=== PATIENT | female | born 1955 | race Caucasian/White ===

== ENCOUNTER 2021-09-04 06:48 | Outpatient (REF) | payer MEDICARE, BC, SELFPAY ==
[2021-09-04 11:29] LABS: MANUAL DIFF FLAG NO
[2021-09-04 11:41] LABS: Basophils Absolute Auto 0.1 X10*3/uL (0.0-0.2); Basophils Percent Auto 1.3 % (0-2); Eosinophils Absolute Auto 0.3 X10*3/uL (0.0-0.4); Eosinophils Percent Auto 4.7 % (0-4); Hematocrit 43.8 % (37.0-47.0); Imm Gran Abs Auto 0.03 X10*3/uL (0.00-0.03); Imm Gran Pct Auto 0.5 % (0.0-0.4); Lymphocytes Absolute Auto 1.9 X10*3/uL (1.2-4.9); Lymphocytes Percent Auto 32.4 % (20-40); Mean Corpuscular Hemoglobin 30.5 pg (27.0-33.0); Mean Corpuscular Volume 95.4 fL (80.0-98.0); Mean Platelet Volume 8.7 fL (9.4-12.3); Monocytes Absolute Auto 0.6 X10*3/uL (0.1-1.2); Monocytes Percent Auto 9.6 % (2-11); Neutrophils Absolute Auto 3.1 x10*3/uL (2.0-8.3); Neutrophils Percent Auto 51.5 % (45-73); Platelet Count 322 X10*3/uL (160-400); Red Blood Count 4.59 X10*6/uL (4.20-5.50); Red Cell Distribution Width 12.3 % (11.0-16.0)
[2021-09-04 12:18] LABS: TSH reflex Free T4 0.67 uIU/mL (0.32-4.0); Vitamin D 25-OH Total 25.9 ng/mL (>30)
[2021-09-04 12:33] LABS: Alanine Aminotransferase 16 U/L (0-31); Albumin Level 4.1 g/dL (3.5-5.0); Alkaline Phosphatase 90 U/L (39-117); Anion Gap 12 (12-20); Aspartate Amino Transferase 16 U/L (5-31); Bilirubin Total 0.3 mg/dL (0.0-1.0); Blood Urea Nitrogen 17 mg/dL (9-16); Calcium 8.6 mg/dL (8.4-10.2); Carbon Dioxide 28 mmol/L (22-29); Chloride 106 mmol/L (96-108); Cholesterol 243 mg/dL; Estimated Glomerular Filt Rate > 60; Glucose Fasting 90 mg/dL (60-99); HDL Cholesterol 51 mg/dL; LDL Cholesterol Calculated 159 mg/dl; Potassium 4.3 mmol/L (3.3-5.1); Sodium 142 mmol/L (135-145); Total Protein 6.9 g/dL (6.5-8.0); Triglycerides 166 mg/dL
[2021-09-04 12:35] LABS: Folate 7.3 ng/mL (> or = 4.0); Vitamin B12 348 pg/mL (200-900)
== END 2021-09-04 06:49 | disposition home or self-care (01) ==
LOC: HO.HMGCLDS 06:48
PROVIDERS: Visit Provider Nurse Practitioner Family
DX: E06.3 Autoimmune thyroiditis (principal); Z13.1 Encounter for screening for diabetes mellitus; Z76.89 Persons encountering health services in other specified circumstances; Z13.220 Encounter for screening for lipoid disorders
CPT/HCPCS: 36415; 80053; 80061; 82306; 82607; 82746; 84443; 85025

== ENCOUNTER 2021-09-18 12:53 | Outpatient (REF) | payer MEDICARE, BC, SELFPAY ==
--- NOTE | ~2021-09-18 | MM_ITS ---
EXAMINATION: BONE DENSITOMETRY CLINICAL INDICATION: Asymptomatic menopausal state. COMPARISON: This is the patient's baseline examination. TECHNIQUE: Using a [employer]ctin DXA System (software version: 13.1) manufactured by [id number], dual-energy x-ray absorptiometry was performed of the lumbar spine and left hip. The images are of good technical quality. Summary results are attached. FINDINGS: AP SPINE L1-L4 (excluding L3): The data of L1-L4 has been changed to exclude the L3 vertebral body, because degenerative sclerosis at this level may cause overestimation of lumbar spine density. BMD 1.107 g/cm2, Z-score 0.0, T-score -0.5, normal. LEFT FEMUR, NECK: BMD 0.889 g/cm2, Z-score -0.3, T-score -1.1, osteopenia. LEFT FEMUR, TOTAL: BMD 0.912 g/cm2, Z-score -0.3, T-score -0.8, normal. IDENTIFIED RISK FACTORS: Osteoporosis, history of fracture (adult), menopause. HISTORY OF FRACTURE: Humerus. Other. MEDICATIONS: Calcium supplements or multivitamin, vitamin D. MM/XR DEXA axial skeleton IMPRESSION: 1. DIAGNOSIS: Osteopenia based on the lowest T-score value of -1.1 in the femoral neck applying World Health Organization criteria. 2. 10-YEAR FRACTURE RISK PREDICTION, FRAX: Major osteoporotic fracture (clinical spine, forearm, hip or shoulder) 13.0%. Hip fracture 1.0%. 3. Treatment Recommendations: NOF guidelines recommend consideration for treatment in postmenopausal women and men age 50 and older presenting with the following: -A hip or vertebral (clinical or morphometric) fracture. -T-score less than or equal to -2.5 at the femoral neck or spine after appropriate evaluation to exclude secondary causes. -Low bone mass at the hip or spine and a 10-year fracture probability by FRAX of greater than or equal to 3% for hip fracture or greater than or equal to 20% for major osteoporotic fracture based on the [place] adapted WHO algorithm. 4. Other Recommendations: All treatment decisions require clinical judgment and consideration of individual patient factors, including patient preferences, comorbidities, previous drug use, risk factors not captured in the FRAX model (e.g. frailty, falls, vitamin D deficiency, increased bone turnover, interval significant decline in bone density) and possible under or overestimation of fracture risk by FRAX. Additional medical evaluation for secondary cause of low bone mineral density may be appropriate. FUTURE SCAN RECOMMENDATION: People with diagnosed cases of osteoporosis or at high risk for fracture should have regular bone mineral density tests. For patients eligible for Medicare, routine testing is allowed once every 2 years. The testing frequency can be increased to one year for patients who have rapidly progressing disease, those who are receiving or discontinuing medical therapy to restore bone mass, or have additional risk factors.
--- NOTE | ~2021-09-18 | MM_ITS ---
EXAMINATION: MM SCREENING DIGITAL BREAST TOMOSYNTHESIS, BILATERAL CLINICAL INFORMATION: Screening. Asymptomatic. The lifetime risk of breast cancer based on the Tyrer-Cuzick Model is 13.3%. COMPARISON: Mammography: None TECHNIQUE: Digital breast tomosynthesis is performed in both the craniocaudal and mediolateral oblique views along with computer-aided detection (CAD). Synthesized 2D images are generated from the tomosynthesis. FINDINGS: There are scattered areas of fibroglandular density (ACR BI-RADS breast composition Category b). There are no significant masses, abnormal calcifications, or other abnormalities. MM/MM tomosynthesis screening BI IMPRESSION: There are no significant changes from prior study. ASSESSMENT: BI-RADS 1: Negative RECOMMENDATION: Routine annual mammography screening. This patient's information was entered into a reminder system with a target due date for their next mammogram.
== END 2021-09-18 12:54 | disposition home or self-care (01) ==
LOC: HO.MAMMO 12:53
PROVIDERS: Visit Provider Nurse Practitioner Family
DX: Z12.31 Encounter for screening mammogram for malignant neoplasm of breast (principal); Z13.820 Encounter for screening for osteoporosis; Z78.0 Asymptomatic menopausal state
CPT/HCPCS: 77063; 77067; 77080

== ENCOUNTER 2021-10-17 23:16 | Emergency (ER) | payer MEDICARE, BC, SELFPAY ==
--- NOTE | ~2021-10-17 | XR_ITS ---
EXAMINATION: RIGHT HAND. CLINICAL INFORMATION: Pain and swelling. Trauma. COMPARISON: None TECHNIQUE: 3 views of the right hand. FINDINGS: There are oblique displaced non intra-articular fractures of the distal shaft of both the fourth and fifth metacarpal. No dislocation. Degenerative joint narrowing between navicular multangular bones of the wrist. Mild degenerative change of the radial ulnar joint. Degenerative joint narrowing marginal bone spurs of the DIP joint of the fifth digit. XR/XR hand wrist RT IMPRESSION: Oblique fracture of the fourth and fifth metacarpal.
--- NOTE | ~2021-10-17 | XR_ITS ---
EXAMINATION: XR HIP, RIGHT CLINICAL INFORMATION: Fall. Pain. COMPARISON: None TECHNIQUE: Frontal view of pelvis. Two views of the right hip. FINDINGS: Status post right hip replacement. Orthopedic components in position. Mildly displaced fractures of the right superior and inferior pubic ramus. Sacroiliac joints and symphysis pubis intact. No fracture of the left hip. There is degenerative joint disease of left hip with joint narrowing marginal bone spurs. XR/XR hip RT w PEL1V IMPRESSION: 1. Status post right hip replacement. 2. Fracture of the right superior and inferior pubic ramus
[2021-10-17 23:25] VITALS: BP 148/83; PULSE 83; RESP 16; TEMP 36.8; O2SAT 98; BMI 28.7
--- NOTE | 2021-10-18 00:21 | ED_ITS ---
HPI - Fall General Chief Complaint: Fall Stated Complaint: fall Time Seen by Provider: 10/18/21 00:06 Source: patient Mode of arrival: ambulatory Limitations: no limitations History of Present Illness HPI Narrative: Patient comes to the emergency room complaining of hip pain and right hand pain after a fall. Patient states that she fell going up the stairs. Patient denies hitting her head, no neck injury, denies taking any blood thinners. Related Data Previous Rx's Medication Instructions Recorded cholecalciferol (vitamin D3) 25 25 mcg PO DAILY #90 tabs 09/06/21 mcg (1,000 unit) tablet lorazepam 0.5 mg tablet 0.5 mg PO DAILY PRN agitation #30 09/13/21 tabs calcium carbonate 500 mg calcium 500 mg PO DAILY 90 days #90 tabs 09/19/21 (1,250 mg) tablet (Oyster Shell Calcium) paroxetine HCl 40 mg tablet 40 mg PO DAILY #90 tabs 10/09/21 levothyroxine 175 mcg capsule 175 mcg PO DAILY #30 caps 10/15/21 oxycodone 5 mg tablet 5 mg PO BID PRN pain #7 tabs 10/18/21 Allergies Allergy/AdvReac Type Severity Reaction Status Date / Time No Known Allergies Allergy Verified 10/17/21 23:28 Review of Systems Review of Systems: Constitutional : No Weight loss, No Fever, No Chills, No Night Sweats, No Fatigue, No Malaise ENT/Mouth : No Hearing loss, No Ear Pain, No Nasal Congestion, No Sinus Pain, No Hoarseness, No sore throat, No Rhinorrhea, No Swallowing Difficulty Eyes: No Eye Pain, No Swelling, No Redness, No Foreign Body, No Discharge, No Vision Changes Cardiovascular : No Chest Pain, No SOB, No Dyspnea on Exertion, No Orthopnea, No Edema, No Palpitations Respiratory : No Cough, No Sputum, No Wheezing, No Smoke Exposure, No Dyspnea Gastrointestinal : No Nausea, No Vomiting, No Diarrhea, No Constipation, No abdominal Pain, No Hematochezia, No Melena Genitourinary : no irregular bleeding, No Dysuria, No Urinary Frequency, No Hematuria, No Urinary Incontinence, No Urgency, No Flank Pain, No Urinary Flow Changes, No Hesitancy Musculoskeletal : Complaining of right-sided hip pain and complaining of right hand pain and swelling Skin : No Skin Lesions, No rash Neuro : No Weakness, No Numbness, No Paresthesias, No Loss of Consciousness, No Dizziness, No Headache Psych : No Anxiety/Panic, No Depression, No SI/HI/AH/VH, No Social Issues, Heme/Lymph: No Bruising, No Bleeding,No Lymphadenopathy Endocrine : No Polyuria, No Polydipsia, No Temperature Intolerance [facility] Past Medical History Medical History (Updated 10/18/21 @ 01:27 by Gerri Grijalva MD) Anxiety 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 Hyperlipidemia Surgical History (Updated 09/06/21 @ 14:02 by ASHLIE Hodges) History of colonoscopy History of right hip replacement History of surgery on arm Total knee replacement status Family History Family History Mother Bone cancer Brother Leukemia Sister Aortic aneurysm Father Kidney disease Social History Social History Housing: House Alcohol intake: current Alcohol intake frequency: a few times a month Alcohol type: beer Patient Tobacco Use Status: Former Tobacco user Tobacco use type: Cigarette Cigarettes Per Day: 5 Years Smoked: 25 e-Cigarette/Vaping Use: Never Used Second Hand Smoke Exposure: Yes Use of substances other than those prescribed or required for medical reasons: No Advance Directives: No service: No Current occupational status: employed (Part-time Job) and retired Cognitive needs: No Hearing needs: No Vision needs: Yes Physical Exam Vital Signs: Vital Signs: Last Vital Signs Temp 98.2 F 10/17/21 23:25 Pulse 83 10/17/21 23:25 Resp 16 10/17/21 23:25 BP 148/83 H 10/17/21 23:25 Pulse Ox 98 10/17/21 23:25 O2 Del Method 10/17/21 23:25 BMI result Body Mass Index 28.7 Const: Other: Appearance: Alert. Oriented X3. No acute distress. Eyes: Pupils equal, round and reactive to light. ENT: Pharynx normal. Neck: Normal inspection. Neck supple. No lymph nodes noted. No crepitus CVS: Normal heart rate and rhythm. Pulses normal. Normal S1 and S2 Respiratory: No respiratory distress. Breath sounds normal. No Wheezing. No rales Abdomen: Soft and nontender. No rigidity. No distention. Skin: Skin warm and dry. Normal skin color. Normal skin turgor. Extremities: No lower extremity edema. Pain to hip flexion and extension. Obvious deformity to the right hand over the 4th and 5th metacarpals, swelling and ecchymosis Neuro: Oriented X 3. No motor deficit. No sensory deficit. Moving all extremities. No slurred speech. CN 2 through 12 grossly intact Psych: calm, cooperative, normal affect Course Course Course Narrative: I discussed both x-rays with Dr. Martínez, recs: splvikas tyler texted at 00:23 to discuss the case. Recommend bracing. I reach out to ask if the patient needs surgical intervention. At this time, 1:22, no response. Patient instructed to follow-up with Dr. Martínez in the morning. Patient was able to walk, patient hand was splinted. I offered to the patient case management and physical therapy evaluation in the morning. Patient declined MDM - Fall Imaging Data Hip x-ray: Radiologist's impression: INDINGS: Status post right hip replacement. Orthopedic components in position. Mildly displaced fractures of the right superior and inferior pubic ramus. Sacroiliac joints and symphysis pubis intact. No fracture of the left hip. There is degenerative joint disease of left hip with joint narrowing marginal bone spurs.? XR/XR hip RT w PEL1V IMPRESSION: ? 1. Status post right hip replacement. 2. Fracture of the right superior and inferior pubic ramus Hand x-ray: Radiologist's impression: FINDINGS: There are oblique displaced non intra-articular fractures of the distal shaft of both the fourth and fifth metacarpal. No dislocation. Degenerative joint narrowing between navicular multangular bones of the wrist. Mild degenerative change of the radial ulnar joint. Degenerative joint narrowing marginal bone spurs of the DIP joint of the fifth digit. XR/XR hand wrist RT IMPRESSION: Oblique fracture of the fourth and fifth metacarpal.? Discharge Plan Discharge Clinical Impression: Closed fracture of inferior pubic ramus, Fracture of superior pubic ramus, Fx metacarpal Patient Disposition: Home, Self-Care Instructions: Hand Fracture (ED), Pelvic Fracture (ED) Additional Instructions: Please follow-up with your primary care physician tomorrow. If you have any worsening or new symptoms, please return to the emergency room or call 911 Prescriptions: New oxycodone 5 mg tablet 5 mg PO BID PRN (Reason: pain) Qty: 7 0RF Rx Instructions: Partial Fill upon patient request. No Action lorazepam 0.5 mg tablet 0.5 mg PO DAILY PRN (Reason: agitation) Qty: 30 0RF calcium carbonate [Oyster Shell Calcium] 500 mg calcium (1,250 mg) tablet 500 mg PO DAILY 90 Days Qty: 90 2RF paroxetine HCl 40 mg tablet 40 mg PO DAILY Qty: 90 0RF levothyroxine 175 mcg capsule 175 mcg PO DAILY Qty: 30 2RF cholecalciferol (vitamin D3) 25 mcg (1,000 unit) tablet 25 mcg PO DAILY Qty: 90 0RF Referrals: Randolph Martínez MD [Physician] - 10/18/21 9:00 am
[2021-10-18] MEDS: oxyCODONE HCl Immed Release 5 MG TABLET PO (00:29)
== END 2021-10-18 01:54 | disposition home or self-care (01) ==
PROVIDERS: Emergency Provider Emergency Medicine; PCP Nurse Practitioner Family
DX: S32.511A Fracture of superior rim of right pubis, initial encounter for closed fracture (principal); S62.324A Displaced fracture of shaft of fourth metacarpal bone, right hand, initial encounter for closed fracture; S62.326A Displaced fracture of shaft of fifth metacarpal bone, right hand, initial encounter for closed fracture; W17.89XA Other fall from one level to another, initial encounter; Z96.641 Presence of right artificial hip joint; Y93.89 Activity, other specified; Y92.009 Unspecified place in unspecified non-institutional (private) residence as the place of occurrence of the external cause; Y99.9 Unspecified external cause status
CPT/HCPCS: 73110; 73130; 73502; 99283; 99284

== ENCOUNTER 2021-11-01 07:18 | Outpatient (REF) | payer BC, SELFPAY ==
--- NOTE | ~2021-11-01 | XR_ITS ---
EXAMINATION: XR HIP, RIGHT CLINICAL INFORMATION: Right hip pain. COMPARISON: Pelvic and hip radiographs dated 10/17/2021. TECHNIQUE: AP view of the pelvis as well as AP and frog-leg lateral views of the right hip. FINDINGS: Total right hip arthroplasty. No hardware fracture. No perihardware lucency to suggest loosening or infection. No dislocation. Left hip joint space narrowing with marginal osteophytes, unchanged. Redemonstration of right superior and inferior pubic rami fractures which are again noted to be slightly comminuted and displaced, similar when compared to the prior radiographs. No significant new bone/callus formation. No concerning lytic or blastic osseous lesion. Phleboliths within the pelvis. XR/XR hip RT w PEL1V IMPRESSION: 1. Redemonstration of mildly displaced and comminuted fractures through the right superior and inferior pubic rami, unchanged. No significant new bone/callus formation. 2. Right hip arthroplasty without evidence of hardware complication. 3. Left hip osteoarthritis, unchanged.
--- NOTE | ~2021-11-01 | XR_ITS ---
EXAMINATION: XR HAND, RIGHT CLINICAL INFORMATION: Right hand pain. COMPARISON: Right hand and wrist radiographs dated 10/17/2021. TECHNIQUE: PA, lateral, and oblique views of the right hand. FINDINGS: Redemonstration of oblique, displaced fractures through the 4th and 5th metacarpals. There is anterior and radial displacement of the distal fracture fragments. Minimal new bone/callus formation when compared to the prior radiographs. No new fracture or dislocation. Scattered degenerative changes redemonstrated throughout the metacarpophalangeal and interphalangeal joints, unchanged. XR/XR hand RT min 3V IMPRESSION: Fourth and 5th metacarpal fractures in similar anatomic alignment with minimal new bone/callus formation.
== END 2021-11-01 07:19 | disposition home or self-care (01) ==
LOC: HO.HOSX 07:18
PROVIDERS: Visit Provider Physician Assistant
DX: S32.511A Fracture of superior rim of right pubis, initial encounter for closed fracture (principal); S32.591A Other specified fracture of right pubis, initial encounter for closed fracture; S62.300A Unspecified fracture of second metacarpal bone, right hand, initial encounter for closed fracture
CPT/HCPCS: 29085; 73130; 73502

== ENCOUNTER 2021-11-29 08:03 | Outpatient (REF) | payer BC, SELFPAY ==
--- NOTE | ~2021-11-29 | XR_ITS ---
EXAMINATION: XR HAND, RIGHT CLINICAL INFORMATION: Pain; follow-up fourth and fifth metacarpal fractures. COMPARISON: Prior radiographs, most recently 11/01/2021. TECHNIQUE: PA, lateral, and oblique views of the right hand. FINDINGS: There is mild bony demineralization. There is stable alignment of oblique, moderately displaced right fourth and fifth distal metacarpal shaft fractures. No new callus formation is seen. The proximal and distal carpal rows are intact. There are stable degenerative changes of the fingers and of the carpal bones. Particular note is made of marked osteoarthritic change of the fifth distal interphalangeal joint. No significant soft tissue swelling, gas or foreign body is seen. XR/XR hand RT min 3V IMPRESSION: There is stable alignment of oblique, moderately displaced fractures of the distal right fourth and fifth intercarpal shafts. No new callus formation is noted.
--- NOTE | ~2021-11-29 | XR_ITS ---
EXAMINATION: XR HIP, RIGHT WITH FRONTAL PELVIS CLINICAL INFORMATION: Pain. COMPARISON: Radiographs dated 11/19/2021. TECHNIQUE: AP and frog-leg lateral views of the right hip are submitted, together with a frontal view of the pelvis. FINDINGS: Prosthetic components of the right total hip arthroplasty are appropriately aligned without periprosthetic fracture or abnormal lucency. No component migration. There is mild narrowing of the left acetabular joint space medially. The soft tissue tissues are normal. XR/XR hip RT w PEL1V IMPRESSION: 1. Appropriate alignment of the right total hip arthroplasty without surrounding abnormalities. 2. There is mild osteoarthritic change of the left hip.
== END 2021-11-29 08:04 | disposition home or self-care (01) ==
LOC: HO.HOSX 08:03
PROVIDERS: Visit Provider Physician Assistant
DX: S62.309A Unspecified fracture of unspecified metacarpal bone, initial encounter for closed fracture (principal); S32.511A Fracture of superior rim of right pubis, initial encounter for closed fracture; S32.591A Other specified fracture of right pubis, initial encounter for closed fracture
CPT/HCPCS: 29085; 73130; 73502; 99212

== ENCOUNTER 2021-12-26 09:24 | Outpatient (REF) | payer BC, SELFPAY ==
[2021-12-26 11:57] LABS: Alanine Aminotransferase 15 U/L (0-31); Albumin Level 4.2 g/dL (3.5-5.0); Alkaline Phosphatase 124 U/L (39-117); Anion Gap 16 (12-20); Aspartate Amino Transferase 17 U/L (5-31); Bilirubin Total 0.6 mg/dL (0.0-1.0); Blood Urea Nitrogen 17 mg/dL (9-16); Calcium 9.3 mg/dL (8.4-10.2); Carbon Dioxide 25 mmol/L (22-29); Chloride 105 mmol/L (96-108); Cholesterol 235 mg/dL; Estimated Glomerular Filt Rate > 60; Glucose Fasting 102 mg/dL (60-99); HDL Cholesterol 48 mg/dL; LDL Cholesterol Calculated 160 mg/dl; Potassium 4.3 mmol/L (3.3-5.1); Sodium 142 mmol/L (135-145); Total Protein 7.2 g/dL (6.5-8.0); Triglycerides 137 mg/dL
[2021-12-26 11:58] LABS: TSH reflex Free T4 2.24 uIU/mL (0.32-4.0); Vitamin D 25-OH Total 32.7 ng/mL (>30)
== END 2021-12-26 09:25 | disposition home or self-care (01) ==
LOC: HO.HMGCLDS 09:24
PROVIDERS: PCP Nurse Practitioner Family; Visit Provider Nurse Practitioner Family
DX: E06.3 Autoimmune thyroiditis (principal); R79.89 Other specified abnormal findings of blood chemistry; E78.5 Hyperlipidemia, unspecified
CPT/HCPCS: 36415; 80053; 80061; 82306; 84443

== ENCOUNTER 2021-12-30 08:20 | Outpatient (REF) | payer BC, SELFPAY ==
--- NOTE | ~2021-12-30 | XR_ITS ---
EXAMINATION: XR PELVIS CLINICAL INFORMATION: Pain. Fracture. COMPARISON: Previous x-ray most recent October 2021 TECHNIQUE: AP view of the pelvis. FINDINGS: There are healing nondisplaced fractures of the right superior and inferior pubic rami. No other fracture. Right hip replacement in satisfactory position. Arthritis at the left hip joint. Normal soft tissues. XR/XR pelvis 1-2V IMPRESSION: Healing right superior and inferior pubic rami fractures.
--- NOTE | ~2021-12-30 | XR_ITS ---
EXAMINATION: XR HAND, RIGHT CLINICAL INFORMATION: Fracture COMPARISON: Previous x-ray most recent October 2021 TECHNIQUE: PA, lateral, and oblique views of the right hand. FINDINGS: There are oblique fractures of the distal shafts of the fourth and fifth metacarpal bones. These appear similar to October 2021 exam. Alignment is unchanged. Fracture lines are still seen. There is minimal interval increase in bony callus formation. There is arthritis at the IP joints, first [facility] joint and trapezoid trapezium scaphoid joints. The bones are osteopenic. Soft tissues are unremarkable. XR/XR hand RT min 3V IMPRESSION: No appreciable change in fractures of the distal shafts of the fourth and fifth metacarpal bones.
== END 2021-12-30 08:21 | disposition home or self-care (01) ==
LOC: HO.HOSX 08:20
PROVIDERS: Visit Provider Physician Assistant
DX: M79.641 Pain in right hand (principal); M16.12 Unilateral primary osteoarthritis, left hip; M25.551 Pain in right hip; Z96.641 Presence of right artificial hip joint
CPT/HCPCS: 72170; 73130; 99212

== ENCOUNTER → 2021-12-30 12:43 | Outpatient (BNVA) | payer MEDICARE, BC, SELFPAY | PROVIDERS: PCP Nurse Practitioner Family; Visit Provider Physician Assistant | DX: S32.599D Other specified fracture of unspecified pubis, subsequent encounter for fracture with routine healing (principal); S62.309D Unspecified fracture of unspecified metacarpal bone, subsequent encounter for fracture with routine healing | CPT/HCPCS: 99212 ==

== ENCOUNTER 2022-01-14 14:07 | Outpatient (REF) | payer MEDICARE, BC, SELFPAY ==
[2022-01-14 16:38] LABS: Estimated Average Glucose 94 mg/dL; Hemoglobin A1c % 4.9 %
== END 2022-01-14 14:08 | disposition home or self-care (01) ==
LOC: HO.HMGCLDS 14:07
PROVIDERS: PCP Nurse Practitioner Family; Visit Provider Nurse Practitioner Family
DX: R73.01 Impaired fasting glucose (principal)
CPT/HCPCS: 36415; 83036

== ENCOUNTER 2022-02-12 12:38 | Outpatient (REF) | payer BC, SELFPAY | END 2022-02-12 12:39 | disposition home or self-care (01) | LOC: HO.HOSX 12:38 | PROVIDERS: Visit Provider Physician Assistant | DX: S62.324D Displaced fracture of shaft of fourth metacarpal bone, right hand, subsequent encounter for fracture with routine healing (principal); S62.326D Displaced fracture of shaft of fifth metacarpal bone, right hand, subsequent encounter for fracture with routine healing | CPT/HCPCS: 99212 ==

== ENCOUNTER 2022-05-13 11:57 | Outpatient (REF) | payer BC, SELFPAY ==
[2022-05-13 14:25] LABS: Alanine Aminotransferase 17 U/L (0-31); Albumin Level 4.1 g/dL (3.5-5.0); Alkaline Phosphatase 92 U/L (39-117); Anion Gap 13 (12-20); Aspartate Amino Transferase 21 U/L (5-31); Bilirubin Total 0.5 mg/dL (0.0-1.0); Blood Urea Nitrogen 13 mg/dL (9-16); Calcium 8.6 mg/dL (8.4-10.2); Carbon Dioxide 29 mmol/L (22-29); Chloride 105 mmol/L (96-108); Cholesterol 215 mg/dL; Estimated Glomerular Filt Rate > 60; Glucose Random 90 mg/dL (60-115); HDL Cholesterol 51 mg/dL; LDL Cholesterol Calculated 121 mg/dl; Potassium 4.8 mmol/L (3.3-5.1); Sodium 142 mmol/L (135-145); Total Protein 6.9 g/dL (6.5-8.0); Triglycerides 215 mg/dL
[2022-05-13 14:41] LABS: TSH reflex Free T4 0.83 uIU/mL (0.32-4.0)
== END 2022-05-13 11:58 | disposition home or self-care (01) ==
LOC: HO.HMGCLDS 11:57
PROVIDERS: PCP Nurse Practitioner Family; Visit Provider Nurse Practitioner Family
DX: E06.3 Autoimmune thyroiditis (principal); E78.5 Hyperlipidemia, unspecified
CPT/HCPCS: 36415; 80053; 80061; 84443

== ENCOUNTER 2022-07-11 11:55 | Outpatient (REF) | payer BC, SELFPAY ==
--- NOTE | ~2022-07-11 | XR_ITS ---
EXAMINATION: XR HIP, LEFT CLINICAL INFORMATION: Pain COMPARISON: None available. TECHNIQUE: Two views of the left hip and one view of the pelvis. FINDINGS: There is moderate left hip arthritis with joint space narrowing and osteophyte formation. No acute fracture or dislocation. Right hip replacement in satisfactory position. Question old healed fracture of the right superior pubic ramus. Bones of the pelvis are otherwise normal. Degenerative changes of the spine. Normal soft tissues. XR/XR hip LT w PEL1V IMPRESSION: Moderate left hip arthritis.
== END 2022-07-11 11:56 | disposition home or self-care (01) ==
LOC: HO.HOSX 11:55
PROVIDERS: Visit Provider Physician Assistant
DX: M16.12 Unilateral primary osteoarthritis, left hip (principal)
CPT/HCPCS: 73502

== ENCOUNTER 2022-07-16 08:37 | Outpatient (REF) | payer BC, SELFPAY ==
--- NOTE | ~2022-07-16 | XR_ITS ---
EXAMINATION: Bilateral ankle. CLINICAL INDICATIONS: Pain. COMPARISON: None. TECHNIQUE: 3 views each ankle. FINDINGS: Left ankle: There is a small calcaneal, retrocalcaneal and dorsal tarsometatarsal enthesophytes. No visible acute fracture, dislocation or subluxation seen. The ankle mortise and subtalar joints are normal. Right ankle: There is a moderate size calcaneal heel and retrocalcaneal enthesophytes. Ankle mortise and subtalar joints are normal. There is moderate tarsometatarsal dorsal enthesophytes. The soft tissues are normal. XR/XR ankle RT min 3V IMPRESSION: 1. Bilateral calcaneal heel and retrocalcaneal enthesophytes. No visible acute fracture, dislocation or subluxation seen. 2. There is moderate bilateral tarsometatarsal dorsal enthesophytes. 3. No visible acute fracture, dislocation or bony erosive changes.
--- NOTE | ~2022-07-16 | XR_ITS ---
EXAMINATION: Bilateral ankle. CLINICAL INDICATIONS: Pain. COMPARISON: None. TECHNIQUE: 3 views each ankle. FINDINGS: Left ankle: There is a small calcaneal, retrocalcaneal and dorsal tarsometatarsal enthesophytes. No visible acute fracture, dislocation or subluxation seen. The ankle mortise and subtalar joints are normal. Right ankle: There is a moderate size calcaneal heel and retrocalcaneal enthesophytes. Ankle mortise and subtalar joints are normal. There is moderate tarsometatarsal dorsal enthesophytes. The soft tissues are normal. XR/XR ankle LT min 3V IMPRESSION: 1. Bilateral calcaneal heel and retrocalcaneal enthesophytes. No visible acute fracture, dislocation or subluxation seen. 2. There is moderate bilateral tarsometatarsal dorsal enthesophytes. 3. No visible acute fracture, dislocation or bony erosive changes.
== END 2022-07-16 08:38 | disposition home or self-care (01) ==
LOC: HO.HOSX 08:37
PROVIDERS: Visit Provider Physician Assistant
DX: M19.071 Primary osteoarthritis, right ankle and foot (principal); M19.072 Primary osteoarthritis, left ankle and foot
CPT/HCPCS: 73610

== ENCOUNTER 2022-09-04 09:11 | Outpatient (REF) | payer BC, SELFPAY | END 2022-09-04 09:12 | disposition home or self-care (01) | LOC: HO.HMGCLDS 09:11 | PROVIDERS: PCP Nurse Practitioner Family; Visit Provider Nurse Practitioner Family | DX: E06.3 Autoimmune thyroiditis (principal); E78.5 Hyperlipidemia, unspecified | CPT/HCPCS: 36415; 80053; 80061; 84443 ==

== ENCOUNTER 2022-09-09 11:37 | Outpatient (AMB) | payer BC, SELFPAY ==
[2022-09-09 11:41] VITALS: BP 130/68; PULSE 81; O2SAT 99; BMI 32.1
--- NOTE | 2022-09-09 11:41 | A.OFFPC_ITS ---
Vital Signs 09/09/22 11:41 Height 5 ft 10 in Weight 224 lb BMI 32.1 BP 130/68 Blood Pressure Location Lt brachial Position Sitting Pulse 81 Pulse Source Pulse Oximeter Temp Source Skin Pulse Oximetry (%) 99 Oxygen Delivery Method Room Air Intake Visit Reasons: annual exam Intake Note: Patient is here today for a physical. Seasoner Hand Required: No Allergies No Known Allergies Allergy (Verified 09/09/22 11:52) Medication List - Last Reconciled 09/09/22 by ASHLIE Hodges blood pressure monitor As directed calcium carbonate (Oyster Shell Calcium) 500 mg PO DAILY 90 days cholecalciferol (vitamin D3) 25 mcg PO DAILY levothyroxine 175 mcg PO DAILY lorazepam 0.5 mg PO DAILY PRN paroxetine HCl 40 mg PO DAILY pravastatin 10 mg PO BEDTIME Tobacco use date assessed: 09/09/22 Fall risk assessment: No Falls in past year Last assessed Fall Risk: 09/09/22 Dental Screening Dental Screen Date: 09/09/22 Did you have a dental visit in the last 12 months?: Yes Did you have a dental problem in the last 6 months where you did not have access to dental care?: No Was dental information given to patient?: Patient has dentist HPI annual exam HPI Details Patient is a 67-year-old female presents today for physical exam.? Medical history significant for elevated fasting glucose, Samuel's disease, anxiety, hyperlipidemia, osteopenia, panic attacks.? Patient is compliant with medications and denies side effects.? Recent blood work results were reviewed with the patient.? Patient denies shortness of breath or chest pain.? Encouraged low-cholesterol diet and weight loss.? Patient will call [facility]'s [facility] for mammogram. We also discussed patient's need for colon cancer screening. Bone density screen 08/2021 which showed osteopenia. Patient reports eye exam 06/2022. Patient quit smoking 2 years ago, will refer for low-dose chest CT scan. Up-to-date with immunizations. [facility] Medical History Anxiety Cigarette smoker 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 Hyperlipidemia Screening for breast cancer Screening for diabetes mellitus Screening for hyperlipidemia Surgical History History of colonoscopy History of right hip replacement History of surgery on arm Total knee replacement status Family History Mother Bone cancer Brother Leukemia Sister Aortic aneurysm Father Kidney disease Social History Housing: House Alcohol intake: current Alcohol intake frequency: a few times a month Alcohol type: beer Patient Tobacco Use Status: Former Tobacco user Tobacco use type: Cigarette Cigarettes Per Day: 5 Years Smoked: 25 e-Cigarette/Vaping Use: Never Used Second Hand Smoke Exposure: Yes service: No Current occupational status: employed (Part-time Job) and retired Cognitive needs: Yes (crutches) Hearing needs: No Vision needs: Yes Questionnaire PHQ-9 Over the last 2 weeks, how often have you been bothered by any of the following problems? 1. Little interest or pleasure in doing things: not at all 2. Feeling down, depressed, or hopeless: not at all 3. Trouble falling or staying asleep, or sleeping too much: not at all 4. Feeling tired or having little energy: not at all 5. Poor appetite or overeating: not at all 6. Feeling bad about yourself - or that you are a failure or have let yourself or your family down: not at all 7. Trouble concentrating on things, such as reading the newspaper or watching television: not at all 8. Moving or speaking so slowly that other people could have noticed. Or the opposite - being so fidgety or restless that you have been moving around a lot more than usual: not at all 9. Thoughts that you would be better off or of hurting yourself in some way: not at all Total score: 0 Depression Screening Interpretation: Negative 31958 - PHQ-9 Billing: Yes Source: Developed by Drs. Keith Brown, Mayte Jin, Bereket Carter and colleagues, with an educational nina from [employer]. Thrive Questionnaire Date Thrive assessed: 05/14/22 AUDIT C Alcohol Use Questionnaire (AUDIT-C) 1. How often do you have a drink containing alcohol?: 2-3 times a week 2. How many drinks containing alcohol do you have on a typical day when you are drinking?: 1 or 2 3. How often do you have six or more drinks on one occasion?: Never Total Score: 3 Score Reviewed/Action Taken: No TONIA-7 AMB Questionnaire TONIA-7 Date TONIA - 7 assessed: 09/09/22 Feeling nervous, anxious, or on edge: 1 = Several days Not being able to stop or control worryin = Several days Worrying too much about different things: 0 = Not at all Trouble relaxin = Not at all Being so restless that it is hard to sit still: 0 = Not at all Becoming easily annoyed or irritable: 0 = Not at all Feeling afraid as if something awful might happen: 0 = Not at all Total TONIA-7 score (0-4 normal; 5-9 mild; 10-14 moderate; 15-21 severe): 2 Source: Developed by Drs. Keith Brown, Mayte Jin, Bereket Carter and colleagues, with an educational nina from [employer]. TONIA-7 Assessment Billing TONIA-7 Assessment Tool: TONIA-7 Assessment 31708 Review of Systems Const Denies body aches, Denies chills, Denies fever(s) and Denies headache(s) Eyes Denies blurry vision and Denies change in vision ENT Denies dizziness, Denies otalgia, Denies headache(s), Denies nasal discharge, Denies sinus pain and Denies sore throat Card Denies chest pain, Denies edema, Denies lightheadedness and Denies dyspnea Resp Denies chest congestion, Denies cough and Denies dyspnea GI Denies abdominal pain, Denies constipation, Denies diarrhea, Denies nausea and Denies vomiting Denies hematuria, Denies dysuria and Denies flank pain Musc Denies myalgias and Reports arthralgias (Intermittent in ankles) Skin/Breast Denies lesions and Denies rash Neuro Denies dizziness and Denies headache(s) Physical exam (Primary Care) Vital Signs: Last Vital Signs Pulse 81 09/09/22 11:41 BP 130/68 09/09/22 11:41 Pulse Ox 99 09/09/22 11:41 Oxygen Delivery Method Room Air 09/09/22 11:41 BMI result Body Mass Index 32.1 Tobacco/Smoking Status: Tobacco use Status Tobacco use date assessed 09/09/22 09/09/22 11:42 Patient Tobacco Use Status Former Tobacco user 09/09/22 11:42 Tobacco use type Cigarette 09/09/22 11:42 e-Cigarette/Vaping Use Never Used 09/09/22 11:42 PHQ-9: PHQ-9 Score PHQ-9: Total score 0 09/09/22 11:53 Depression Screening Interpretation: Negative Thrive Assessment: Date of Thrive Assessment Date Thrive assessed 05/14/22 09/09/22 11:42 Const General: cooperative and no acute distress Orientation/consciousness: patient oriented x3 HENMT Head: Yes normocephalic and Yes atraumatic Ears: TM's normal bilaterally Face and sinus: Yes sinuses nontender Mouth: oropharynx normal and moist mucous membranes Throat: Yes posterior oropharynx normal Eyes General: appearance normal, both eyes and all related structures Pupils: Equal, round and reactive pupils present EOM: EOMs intact bilaterally Neck Neck: Yes normal visual inspection, Yes full ROM and Yes no lymphadenopathy Thyroid: Thyroid normal Resp Effort & Inspection: normal respiratory effort and able to speak in complete sentences Auscultation: clear to auscultation bilaterally, no crackles, no rales, no rhonchi and no wheezes Cardio Rate: regular rate Rhythm: regular rhythm Heart sounds: S1 normal heart sound present, S2 normal heart sound present and no murmurs GI Palpation (GI): Soft to palpation, not firm, nontender, no guarding, not rigid and no hepatosplenomegaly Auscultation: normal bowel sounds General: No CVA tenderness Back/Spine/Pelvis Back: No CVA tenderness Skin General skin exam: no rashes or lesions noted Neuro General: patient oriented x3 Cranial nerves: Yes Equal, round and reactive pupils present Gait exam (Neuro): Normal gait present Extrem General: Yes full ROM and No edema Assessment and Plan Assessment & Plan (1) Hyperlipidemia: Code(s): E78.5 - Hyperlipidemia, unspecified Plan: LDL 140 08/2022, goal LDL less than 130 Continue pravastatin 10 mg at bedtime Low-cholesterol diet (2) Anxiety: Code(s): F41.9 - Anxiety disorder, unspecified Plan: Paroxetine 40 mg daily (3) Panic attack: Code(s): F41.0 - Panic disorder [episodic paroxysmal anxiety] Plan: Lorazepam 0.5 mg daily as needed - educated about dependency and memory loss (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 Plan: Levothyroxine 175 mcg daily (5) Elevated fasting glucose: Code(s): R73.01 - Impaired fasting glucose Plan: A1c 4.9 12/2021 Continue to monitor (6) Obesity (BMI 30-39.9): Code(s): E66.9 - Obesity, unspecified Plan: Healthy food choices and exercise as tolerated (7) Osteopenia: Comment: DXA 08/2021 (osteopenia) Code(s): M85.80 - Other specified disorders of bone density and structure, unspecified site Plan: Continue vitamin D3 and calcium carbonate (8) History of nicotine dependence: Comment: stopped smoking 2020 Code(s): Z87.891 - Personal history of nicotine dependence Plan: Will refer for chest CT scan (9) Adult general medical exam: Code(s): Z00.00 - Encounter for general adult medical examination without abnormal findings Plan: Repeat in 1 year (10) Screening for colon cancer: Code(s): Z12.11 - Encounter for screening for malignant neoplasm of colon Plan: Referral for colonoscopy Plan Follow-up in 4 months or sooner as needed Orders: Orders Vitamin B12 and Folate 4 Months Z00.00 - Encounter for general adult medical examination without abnormal findings Comprehensive [place]. Panel Fast 4 Months R73.01 - Impaired fasting glucose Hemoglobin A1c 4 Months R73.01 - Impaired fasting glucose Lipid Panel 4 Months E78.5 - Hyperlipidemia, unspecified TSH reflex Free T4 4 Months E06.3 - Autoimmune thyroiditis Vitamin D 25-OH Total 4 Months M85.80 - Other specified disorders of bone density and structure, unspecified site Complete Blood Count Auto Diff 4 Months Z00.00 - Encounter for general adult medical examination without abnormal findings Referrals Open Access Screening Colonoscopy Referral Z12.11 - Encounter for screening for malignant neoplasm of colon, Z12.12 - Encounter for screening for malignant neoplasm of rectum Thoracic Surgery Referral Z87.891 - Personal history of nicotine dependence Coding Level of Care Code Est Pt Prev Care >65y(89560) Diagnoses Hyperlipidemia E78.5 Anxiety F41.9 Panic attack F41.0 Samuel's disease E06.3 Elevated fasting glucose R73.01 Obesity (BMI 30-39.9) E66.9 Osteopenia M85.80 History of nicotine dependence Z87.891 Adult general medical exam Z00.00 Screening for colon cancer Z12.11 Additional Codes TONIA-7 Assessment Billing - TONIA-7 Assessment Tool: TONIA-7 Assessment 40228 ([id number])
== END 2022-09-09 12:16 | disposition home or self-care (01) ==
PROVIDERS: Visit Provider Nurse Practitioner Family
DX: Z00.00 Encounter for general adult medical examination without abnormal findings (principal); F41.9 Anxiety disorder, unspecified; E06.3 Autoimmune thyroiditis; Z68.32 Body mass index [BMI] 32.0-32.9, adult; E78.5 Hyperlipidemia, unspecified; F41.0 Panic disorder [episodic paroxysmal anxiety]; R73.01 Impaired fasting glucose; E66.9 Obesity, unspecified; M85.80 Other specified disorders of bone density and structure, unspecified site; Z87.891 Personal history of nicotine dependence; Z12.11 Encounter for screening for malignant neoplasm of colon
CPT/HCPCS: 99397

== ENCOUNTER 2023-01-13 08:09 | Outpatient (REF) | payer BC, SELFPAY ==
[2023-01-13 11:46] LABS: MANUAL DIFF FLAG NO
[2023-01-13 12:01] LABS: Estimated Average Glucose 100 mg/dL; Hemoglobin A1c % 5.1 % (<6.0)
[2023-01-13 12:16] LABS: Basophils Absolute Auto 0.1 X10*3/uL (0.0-0.2); Basophils Percent Auto 0.9 % (0-2); Eosinophils Absolute Auto 0.2 X10*3/uL (0.0-0.4); Hematocrit 43.1 % (37.0-47.0); Hemoglobin 13.9 g/dl (12.0-16.0); Imm Gran Abs Auto 0.03 X10*3/uL (0.00-0.03); Imm Gran Pct Auto 0.6 % (0.0-0.4); Lymphocytes Absolute Auto 1.4 X10*3/uL (1.2-4.9); Lymphocytes Percent Auto 25.2 % (20-40); Mean Corpuscular HGB Conc 32.3 g/dl (31.0-35.0); Mean Corpuscular Volume 93.1 fL (80.0-98.0); Mean Platelet Volume 8.7 fL (9.4-12.3); Monocytes Absolute Auto 0.5 X10*3/uL (0.1-1.2); Monocytes Percent Auto 9.7 % (2-11); Neutrophils Absolute Auto 3.2 x10*3/uL (2.0-8.3); Neutrophils Percent Auto 59.6 % (45-73); Platelet Count 295 X10*3/uL (160-400); Red Blood Count 4.63 X10*6/uL (4.20-5.50); Red Cell Distribution Width 12.5 % (11.0-16.0); White Blood Count 5.4 X10*3/uL (4.8-10.8)
[2023-01-13 12:17] LABS: Alanine Aminotransferase 11 U/L (0-31); Albumin Level 4.1 g/dL (3.5-5.0); Alkaline Phosphatase 88 U/L (39-117); Anion Gap 11 (12-20); Aspartate Amino Transferase 16 U/L (5-31); Bilirubin Total 0.3 mg/dL (0.0-1.0); Blood Urea Nitrogen 20 mg/dL (9-16); Calcium 9.3 mg/dL (8.4-10.2); Carbon Dioxide 30 mmol/L (22-29); Chloride 107 mmol/L (96-108); Cholesterol 195 mg/dL (<200); Estimated Glomerular Filt Rate > 60; Glucose Fasting 101 mg/dL (60-99); HDL Cholesterol 49 mg/dL (>40); LDL Cholesterol Calculated 118 mg/dL (<100); Potassium 4.9 mmol/L (3.3-5.1); Sodium 143 mmol/L (135-145); Total Protein 7.2 g/dL (6.5-8.0); Triglycerides 142 mg/dL (<150)
[2023-01-13 12:23] LABS: TSH reflex Free T4 0.53 uIU/mL (0.32-4.0); Vitamin D 25-OH Total 44.5 ng/mL (>30)
[2023-01-13 12:41] LABS: Folate 5.4 ng/mL (> or = 4.0); Vitamin B12 428 pg/mL (200-900)
== END 2023-01-13 08:10 | disposition home or self-care (01) ==
LOC: HO.HMGCLDS 08:09
PROVIDERS: PCP Nurse Practitioner Family; Visit Provider Nurse Practitioner Family
DX: Z00.00 Encounter for general adult medical examination without abnormal findings (principal); M85.80 Other specified disorders of bone density and structure, unspecified site; E06.3 Autoimmune thyroiditis; E78.5 Hyperlipidemia, unspecified; R73.01 Impaired fasting glucose
CPT/HCPCS: 36415; 80053; 80061; 82306; 82607; 82746; 83036; 84443; 85025

== ENCOUNTER 2023-01-14 11:44 | Outpatient (AMB) | payer BC, SELFPAY ==
[2023-01-14 11:46] VITALS: BP 122/88; PULSE 80; O2SAT 98; BMI 31.4
--- NOTE | 2023-01-14 11:46 | A.OFFPC_ITS ---
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 Allergies No Known Allergies Allergy (Verified 01/14/23 11:54) Medication List - Last Reconciled 01/14/23 by ASHLIE Hodges bisacodyl 20 mg (4 x 5 mg) PO ONCE 1 day blood pressure monitor As directed calcium carbonate (Oyster Shell Calcium) 500 mg PO DAILY 90 days cholecalciferol (vitamin D3) 25 mcg PO DAILY levothyroxine 175 mcg PO DAILY lorazepam 0.5 mg PO DAILY PRN paroxetine HCl 40 mg PO DAILY polyethylene glycol 3350 (Miralax) 238 grams PO ONCE pravastatin 10 mg PO BEDTIME Tobacco use date assessed: 01/14/23 Fall risk assessment: No Falls in past year Last assessed Fall Risk: 01/14/23 Dental Screening Dental Screen Date: 01/14/23 Did you have a dental visit in the last 12 months?: Yes Did you have a dental problem in the last 6 months where you did not have access to dental care?: No Was dental information given to patient?: Patient has dentist HPI 4 month f/u HPI Details Patient is a 67-year-old female presents today for a routine follow- up.? Medical history significant for elevated fasting glucose, Samuel's disease, anxiety, hyperlipidemia, osteopenia, panic attacks.? Patient is compliant with medications and denies side effects.? Recent blood work results were reviewed with the patient.? Patient denies shortness of breath or chest pain. Patient reports that she was recently sick with a cold, reports some postnasal drip-she will try [id number] Flonase nasal spray. [facility] Medical History Metacarpal bone fracture Fracture of superior pubic ramus Closed fracture of inferior pubic ramus Anxiety Samuel's disease Hyperlipidemia Osteopenia Personal history of nicotine dependence Surgical History History of colonoscopy History of total right knee replacement (~2017) History of total left knee replacement (~2017) History of surgery on arm (~2019) History of right hip replacement (~2019) Family History (Updated 01/14/23 @ 12:01 by ASHLIE Hodges) Mother Bone cancer Brother Leukemia Afib Sister Aortic aneurysm Father Kidney disease Social History Housing: House Alcohol intake: current Alcohol intake frequency: a few times a month Alcohol type: beer Patient Tobacco Use Status: Former Tobacco user Tobacco use type: Cigarette Cigarettes Per Day: 5 Years Smoked: 25 e-Cigarette/Vaping Use: Never Used Second Hand Smoke Exposure: Yes service: No Current occupational status: employed (Part-time Job) and retired Cognitive needs: Yes (crutches) Hearing needs: No Vision needs: Yes Questionnaire Thrive Questionnaire Date Thrive assessed: 05/14/22 AUDIT C Alcohol Use Questionnaire (AUDIT-C) 1. How often do you have a drink containing alcohol?: 2-3 times a week 2. How many drinks containing alcohol do you have on a typical day when you are drinking?: 1 or 2 3. How often do you have six or more drinks on one occasion?: Never Total Score: 3 Score Reviewed/Action Taken: No TONIA-7 AMB Questionnaire TONIA-7 Date TONIA - 7 assessed: 09/09/22 Source: Developed by Drs. Keith Brown, Mayte Jin, Bereket Carter and colleagues, with an educational nina from [employer]. Review of Systems Const Denies body aches, Denies chills, Denies fever(s) and Denies headache(s) Eyes Denies blurry vision and Denies change in vision ENT Denies dizziness, Denies otalgia, Denies headache(s), Denies nasal discharge, Reports post nasal drip, Denies sinus pain and Denies sore throat Card Denies chest pain, Denies edema, Denies lightheadedness and Denies dyspnea Resp Denies chest congestion, Denies cough and Denies dyspnea GI Denies abdominal pain Denies dysuria Musc Denies myalgias Skin/Breast Denies rash Neuro Denies dizziness and Denies headache(s) Physical exam (Primary Care) Vital Signs: Last Vital Signs Pulse 80 01/14/23 11:46 BP 122/88 01/14/23 11:46 Pulse Ox 98 01/14/23 11:46 Oxygen Delivery Method Room Air 01/14/23 11:46 BMI result Body Mass Index 31.4 Tobacco/Smoking Status: Tobacco use Status Tobacco use date assessed 01/14/23 01/14/23 11:51 Patient Tobacco Use Status Former Tobacco user 01/14/23 11:51 Tobacco use type Cigarette 01/14/23 11:51 e-Cigarette/Vaping Use Never Used 01/14/23 11:51 Thrive Assessment: Date of Thrive Assessment Date Thrive assessed 05/14/22 01/14/23 11:51 Const General: cooperative and no acute distress Orientation/consciousness: patient oriented x3 HENMT Head: Yes normocephalic and Yes atraumatic Face and sinus: Yes sinuses nontender Mouth: oropharynx normal and moist mucous membranes Throat: Yes posterior oropharynx normal Eyes General: appearance normal, both eyes and all related structures Neck Neck: Yes normal visual inspection, Yes full ROM and Yes no lymphadenopathy Thyroid: Thyroid normal Resp Effort & Inspection: normal respiratory effort and able to speak in complete sentences Auscultation: clear to auscultation bilaterally, no crackles, no rales, no rhonchi and no wheezes Cardio Rate: regular rate Rhythm: regular rhythm Heart sounds: S1 normal heart sound present and S2 normal heart sound present GI Auscultation: normal bowel sounds Skin General skin exam: no rashes or lesions noted Neuro General: patient oriented x3 Gait exam (Neuro): Normal gait present Extrem General: Yes full ROM and No edema Assessment and Plan Assessment & Plan (1) Hyperlipidemia: Code(s): E78.5 - Hyperlipidemia, unspecified Plan: LDL 118 12/2022, goal LDL less than 130 Continue pravastatin 10 mg at bedtime Low-cholesterol diet (2) Anxiety: Code(s): F41.9 - Anxiety disorder, unspecified Plan: Paroxetine 40 mg daily (3) Panic attack: Code(s): F41.0 - Panic disorder [episodic paroxysmal anxiety] Plan: Lorazepam 0.5 mg daily as needed - educated about dependency and memory loss (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 Panel Fast 4 Months E78.5 - Hyperlipidemia, unspecified TSH reflex Free T4 4 Months E06.3 - Autoimmune thyroiditis Medications: Refilled lorazepam 0.5 mg PO DAILY PRN 30 tabs 0RF agitation Coding Level of Care Code Est Pt Level 4 (17073) Diagnoses Hyperlipidemia E78.5 Anxiety F41.9 Panic attack F41.0 Samuel's disease E06.3 Elevated fasting glucose R73.01 Obesity (BMI 30-39.9) E66.9
== END 2023-01-14 12:10 | disposition home or self-care (01) ==
PROVIDERS: PCP Nurse Practitioner Family; Visit Provider Nurse Practitioner Family
DX: E78.5 Hyperlipidemia, unspecified (principal); F41.9 Anxiety disorder, unspecified; F41.0 Panic disorder [episodic paroxysmal anxiety]; E06.3 Autoimmune thyroiditis; R73.01 Impaired fasting glucose; E66.9 Obesity, unspecified; Z68.31 Body mass index [BMI] 31.0-31.9, adult
CPT/HCPCS: 99214

== ENCOUNTER 2023-01-30 09:21 | Outpatient (AMB) | payer BC, SELFPAY ==
--- NOTE | 2023-01-30 09:29 | MHC.OFFVIS ---
Intake Intake Visit Reasons: LDCT SD Allergies No Known Allergies Allergy (Verified 01/14/23 11:54) HPI LDCT SD HPI Details Initial visit for this 67 smoker with a 22 PYH quit 2021. Patient has been smoking since age 21 for 45 years at approximately 1/2 ppd. . Denies marijuana use. Notes prior second hand smoke exposure. Denies exposure to chemicals or substances like asbestos, working in many different . Denies known family history of lung cancer. Denies personal history of cancer. Denies chest CT in last year. . Denies recent travel outside the [place]. Denies recent respiratory illness or recent hospitalization for respiratory issues. . Denies fever, chills, new/worsening cough, hemoptysis, hoarseness or dysphagia. Denies significant chest pain, significant dyspnea or unintentional weight loss. Patient Lung Cancer Screening Questionnaire reviewed with patient.. . Shared Decision Making Completed. Patient meets criteria. Discussed in detail with patient, the risk vs benefit of LDCT screening. Patient consents to proceed with scan. [facility] Medical History Metacarpal bone fracture Fracture of superior pubic ramus Closed fracture of inferior pubic ramus Anxiety Samuel's disease Hyperlipidemia Osteopenia Personal history of nicotine dependence Surgical History History of colonoscopy History of total right knee replacement (~2017) History of total left knee replacement (~2017) History of surgery on arm (~2019) History of right hip replacement (~2019) Family History (Updated 01/14/23 @ 12:01 by ASHLIE Hodges) Mother Bone cancer Brother Leukemia Afib Sister Aortic aneurysm Father Kidney disease Social History (Updated 01/30/23 @ 09:53 by Gerri Carey NP) Housing: House Alcohol intake: current Alcohol intake frequency: a few times a month Alcohol type: beer Patient Tobacco Use Status: Former Tobacco user Tobacco use type: Cigarette Cigarettes Per Day: 10 Years Smoked: 25 e-Cigarette/Vaping Use: Never Used Second Hand Smoke Exposure: Yes service: No Current occupational status: employed (Part-time Job) and retired Cognitive needs: Yes (crutches) Hearing needs: No Vision needs: Yes Assessment & Plan Assessment & Plan (1) Personal history of nicotine dependence: Comment: (former smoker - quit 2021) Code(s): Z87.891 - Personal history of nicotine dependence Plan SDM visit completed in office. - Patient meets criteria for LDCT for lung cancer screening purposes and is asymptomatic. - Will arrange for a LDCT scan of the chest for screening purposes at [facility]. - Discussed follow up plan. Will send a letter discussing results and if needed set up phone call and office visit based on CT findings. - Risks, benefits, and alternatives were discussed in detail and patient agrees to proceed. - Risks discussed include but are not limited to: radiation exposure and possibility of additional intervention for benign disease. - Benefits are obviously detection of lung cancer at an early stage. - Discussed importance of screening program and compliance with yearly LDCT scan as scheduled. - Patient informed they will be contacted at later date to schedule upcoming LDCT scan. - All questions answered and patient is in agreement of plan. - A copy of office note and LDCT will be sent to patient's PCP. Incidental findings on LDCT are PCP's responsibility. Coding Level of Care Code Lung Cancer Screening G0296 Diagnoses Personal history of nicotine dependence Z87.891
== END 2023-01-30 09:39 | disposition home or self-care (01) ==
PROVIDERS: PCP Nurse Practitioner Family; Visit Provider Nurse Practitioner Family
DX: Z87.891 Personal history of nicotine dependence (principal)
CPT/HCPCS: G0296

== ENCOUNTER 2023-01-30 09:38 | Outpatient (REF) | payer BC, SELFPAY ==
--- NOTE | ~2023-01-30 | CT_ITS ---
EXAMINATION: CT CHEST LOW-DOSE SCREENING WITHOUT CONTRAST HISTORY: Asymptomatic patient meeting criteria for lung screening. Smoking PATIENT PACK-YEAR HISTORY: 41 Current Smoker: No If former smoker, years since quittin COMPARISON: None TECHNIQUE: Multidetector volumetric non-contrast CT imaging of the chest was obtained on a [id number] 128 slice scanner using low dose screening CT technique. Axial thin section 0.625 mm reformations in soft tissue and lung windows were obtained. Sagittal and coronal reformations were obtained. Axial MIP images were also created and reviewed. RECONSTRUCTED WIDTH: 1.25 mm x 1.25 mm TOTAL EXAM DLP: 66 mGy-cm CTDIvol: 1.65 mGy FINDINGS: LUNGS: Lungs are well-expanded without nodules or evidence of emphysema or COPD. There are no lung nodules or consolidation. MEDIASTINUM/LYMPHATIC STRUCTURES: There is mild mediastinal lymphadenopathy with pretracheal lymph node measured 0.9 cm. There is no obvious hilar lymphadenopathy. THYROID GLAND: Unremarkable to the extent seen. CARDIOVASCULAR STRUCTURES: Thoracic aorta is ectatic measured 3.9 cm. Coronary artery calcifications present. There is no pericardial effusion or cardiomegaly. PLEURA: No pleural effusion. No pleural 6 VISUALIZED ABDOMEN: Included portions of the solid organs in the upper abdomen unremarkable on noncontrast imaging. MUSCULO-SKELETAL: There are mild multilevel degenerative changes in thoracic spine. SPINAL COMPRESSION: Absent. CT/CT lung screening IMPRESSION: No findings suspicious for malignancy/pulmonary nodule(s)/other. LUNG-RADS CATEGORY - 1 ASSESSMENT: Negative. PHYSICAL FINDINGS (S CATEGORY): Finding: No incidental findings. Significance category: Normal or normal variant. RECOMMENDATION: Low dose lung CT. overall in 1 year. Visual estimate of coronary calcified plaque burden: None. However, this exam cannot replace a dedicated cardiac CT calcium score for accurate assessment.
== END 2023-01-30 09:39 | disposition home or self-care (01) ==
LOC: HO.CT 09:38
PROVIDERS: PCP Nurse Practitioner Family; Visit Provider Physician Assistant Medical
DX: Z12.2 Encounter for screening for malignant neoplasm of respiratory organs (principal); Z87.891 Personal history of nicotine dependence
CPT/HCPCS: 71271; G0296

== ENCOUNTER 2023-05-04 10:03 | Day surgery (SDC) | payer BC, SELFPAY ==
--- NOTE | 2023-05-01 13:17 | P.CONAN_ITS ---
Documented by User: Alexa Mckenzie NP 05/01/23 13:18 HPI - Anesthesia Eval Consult details Narrative: 67yo F for Colonoscopy PMFSH Active Problems Active Problems: All Active Problems (Updated 01/30/23 @ 09:53 by Gerri Carey NP) Anxiety (Acute) Panic attack (Acute) Samuel's disease (Acute) Hyperlipidemia (Acute) Osteopenia (Acute) Obesity (BMI 30-39.9) (Acute) Elevated fasting glucose (Acute) Elevated blood pressure reading (Acute) Personal history of nicotine dependence (Acute) Post-menopausal (Acute) Osteoarthritis of feet, bilateral (Acute) Osteoarthritis of left hip (Acute) Shotty lymph nodes (Acute) Low vitamin D level (Acute) Past Medical History Medical History Metacarpal bone fracture Fracture of superior pubic ramus Closed fracture of inferior pubic ramus Anxiety Samuel's disease Hyperlipidemia Osteopenia Personal history of nicotine dependence Family History Family History (Updated 01/14/23 @ 12:01 by ASHLIE Hodges) Mother Bone cancer Brother Leukemia Afib Sister Aortic aneurysm Father Kidney disease Surgical History Surgical History History of colonoscopy History of total right knee replacement (~2017) History of total left knee replacement (~2017) History of surgery on arm (~2019) History of right hip replacement (~2019) Social History Social History (Updated 01/30/23 @ 09:53 by Gerri Carey NP) Housing: House Alcohol intake: current Alcohol intake frequency: a few times a month Alcohol type: beer Patient Tobacco Use Status: Former Tobacco user Tobacco use type: Cigarette Cigarettes Per Day: 10 Years Smoked: 25 e-Cigarette/Vaping Use: Never Used Second Hand Smoke Exposure: Yes Advance Directives: No Advance Directives Information Provided: Yes service: No Current occupational status: employed (Part-time Job) and retired Cognitive needs: Yes (crutches) Hearing needs: No Vision needs: Yes Meds Allergies Allergy/AdvReac Type Severity Reaction Status Date / Time No Known Allergies Allergy Verified 01/14/23 11:54 Exam Pertinent Lab Results Pertinent Lab Results: Laboratory Tests 01/13/23 08:14 WBC 5.4 Hgb 13.9 Hct 43.1 Plt Count 295 Sodium 143 Potassium 4.9 Chloride 107 Carbon Dioxide 30 H BUN 20 H Creatinine 0.84 Assessment and Plan Assessment Anesthesia Assessment: Chart Reviewed Documented by User: Serenity Mcdonald MD 05/04/23 11:24 [facility] Past Medical History Medical History Metacarpal bone fracture Fracture of superior pubic ramus Closed fracture of inferior pubic ramus Anxiety Samuel's disease Hyperlipidemia Osteopenia Personal history of nicotine dependence Family History Family History (Updated 01/14/23 @ 12:01 by ASHLIE Hodges) Mother Bone cancer Brother Leukemia Afib Sister Aortic aneurysm Father Kidney disease Family history of problems with anesthesia: No Surgical History Surgical History History of colonoscopy History of total right knee replacement (~2017) History of total left knee replacement (~2017) History of surgery on arm (~2019) History of right hip replacement (~2019) History of Problems with Anesthesia: No Social History Social History (Updated 01/30/23 @ 09:53 by Gerri Carey NP) Housing: House Alcohol intake: current Alcohol intake frequency: a few times a month Alcohol type: beer Patient Tobacco Use Status: Former Tobacco user Tobacco use type: Cigarette Cigarettes Per Day: 10 Years Smoked: 25 e-Cigarette/Vaping Use: Never Used Second Hand Smoke Exposure: Yes Advance Directives: No Advance Directives Information Provided: Yes service: No Current occupational status: employed (Part-time Job) and retired Cognitive needs: Yes (crutches) Hearing needs: No Vision needs: Yes Meds Allergies Allergy/AdvReac Type Severity Reaction Status Date / Time No Known Allergies Allergy Verified 01/14/23 11:54 Exam Airway Mallampati Class: II (missing couple laterally) TM Dist: >3cm Neck ROM: Full Heart: rrr Lungs: cta Assessment and Plan Assessment Anesthesia Assessment: Anesthesia Plan Discussed Final Anesthetic Review Family History of Problems with Anesthesia: No History of Problems with Anesthesia: No NPO: Yes ASA Class: II Final Preanesthetic Review: No Changes in Pt Med Stat, Meds/Allgs Chart Reviewed and Consent Obtained/Reviewed Patient Risk: Low Procedure Risk: Low Anesthetic Plan Anesthetic Plan: MAC: Disposition: Standard PACU
[2023-05-04 11:28] VITALS: BP 145/73; PULSE 61; RESP 15; TEMP 36.9; O2SAT 98
--- NOTE | 2023-05-04 11:28 | MHC.SHP ---
Pre-Procedural Eval Section A - 24 Hr Update-Section A only Date of Service: 05/04/23 The patient is an INPATIENT: No The patient has been examined within 24 hours of the surgical procedure. The History & Physical has been completed within 30 days and I have reviewed it.: No Section B - Complete if H&P > 30 days Chief Complaint: Colon cancer screening Details of Present Illness: Patient denies abdominal pain, change in bowel habits, black stools or rectal bleeding. Relevant Family History (Specify if Yes): No Relevant Social History: Tobacco Use (Former smoker) Present Medications: see Short Stay Collaborative assessment Medical History: Significant History (elevated fasting glucose, Samuel's disease, anxiety, hyperlipidemia, osteopenia, panic attacks. ) History of Previous Operations: Relevant previous surgery/procedure and date(s) (History of colonoscopy History of total right knee replacement (~2016) History of total left knee replacement (~2016) History of surgery on arm (~2018) History of right hip replacement (~2018)) Allergies: Allergies Allergy/AdvReac Type Severity Reaction Status Date / Time No Known Allergies Allergy Verified 05/04/23 11:27 Review of Systems Sugical H&P ROS: Negative: Constitution, Cardiovascular, Respiratory and Gastrointestinal Exam Surgical H&P Exam: Normal: Heart, Normal: Lungs, Normal: Extremities and Normal: Abdomen Plan Diagnosis/Plan: Unchanged I have reviewed the history and physical and performed a pertinent physical examination on my patient. No changes have occurred unless specified. Time Spent With Patient Time: Total time managing care of this patient today ____ minutes.
[2023-05-04 11:29] VITALS: BMI 31.0
--- NOTE | 2023-05-04 11:30 | P.OP_ITS ---
Operative Note Operative Note Date of Service: 05/04/23 Narrative: COLONOSCOPY TILL CECUM WITH SNARE POLYPECTOMY Pre-op diagnosis: Colon cancer screening. Post-op diagnosis:? Colon polyps, Diverticulosis, hemorrhoids Endoscopist:? Taryn Servin MD Anesthesia:?MAC Consent: Indications for the procedure and potential complications of bleeding, perforation, reaction to medications and missed diagnosis were discussed with the patient and informed consent was obtained. Instrument: Olympus CF H 190 L variable stiffness adult colonoscope Monitoring: Vital signs and clinical assessment, intermittent blood pressure monitoring, continuous EKG monitoring, Pulse oximetry and Carbon Dioxide monitoring were done throughout the procedure. Please see anesthesia flowsheet. Colon withdrawl time was 19 minutes. Procedure: The patient was placed in the left lateral decubitis position and pre-procedure medications were administered. After a digital rectal examination of the ano-rectum, the video colonoscope was inserted into the rectum and advanced through the colon to the cecum. The colonoscope was slowly withdrawn in a retrograde panoramic fashion and the colon mucosa was carefully examined including a retroflexed view of the rectum. Findings and interventions are described below. Procedure Difficulty: Narrow and tortuous sigmoid colon from 30 to 35 cms which was navigated with some difficulty Findings: Terminal Ileum: Not evaluated Cecum: Normal Ascending Colon: A 7-8 mm sessile polyp in the mid AC - removed with a cold snare Transverse Colon: Normal Descending Colon: Moderate diverticulosis Sigmoid Colon: Severe diverticulosis with luminal narrowing Rectum: A 7-8 mm diminutive appearing polyp - removed with a cold snare Ano-rectum: Moderate internal hemorrhoids Colon preparation: Good after some irrigation [place] Bowel Preparation Scale Right colon; 3 Transverse colon: 3 Left colon; 3 (0 = Unprepared colon segment with mucosa not seen due to solid stool that cannot be cleared. 1 = Portion of mucosa of the colon segment seen, but other areas of the colon segment not well seen due to staining, residual stool and/or opaque liquid. 2 = Minor amount of residual staining, small fragments of stool and/or opaque liquid, but mucosa of colon segment seen well. 3 = Entire mucosa of colon segment seen well with no residual staining, small fragments of stool or opaque liquid) Impression and Post Procedure Diagnosis: Colonoscopy Findings: Two small polyps removed. Moderate to severe diverticulosis seen in the left colon Moderate hemorrhoids on retroflexed exam. Plan: I will send a letter with pathology results Repeat Colonoscopy in 5 years if polyps are adenomatous and 10 years if polyps are hyperplastic. Above findings were reviewed with the patient and colon polyps and diverticulosis handouts were given in the discharge area.
[2023-05-04] MEDS: Lactated Ringers 1,000 ML 100 ML IVCONT (11:31)
[2023-05-04 12:13] VITALS: BP 124/74; PULSE 67; RESP 16; TEMP 36.2; O2SAT 97
[2023-05-04 12:28] VITALS: BP 130/66; PULSE 68; RESP 15; TEMP 36.2; O2SAT 98
== END 2023-05-04 12:52 | disposition home or self-care (01) ==
PROVIDERS: PCP Nurse Practitioner Family; Visit Provider Internal Medicine Gastroenterology
PROC: 0DJD8ZZ Inspection of Lower Intestinal Tract, Via Natural or Artificial Opening Endoscopic (ICD-10-PCS; CPT 45378; principal; 2023-05-04 11:40)
DX: Z12.11 Encounter for screening for malignant neoplasm of colon (principal); D12.4 Benign neoplasm of descending colon; K62.1 Rectal polyp; K57.30 Diverticulosis of large intestine without perforation or abscess without bleeding; K64.8 Other hemorrhoids; R73.01 Impaired fasting glucose; E06.3 Autoimmune thyroiditis; F41.9 Anxiety disorder, unspecified; F41.0 Panic disorder [episodic paroxysmal anxiety]; E78.5 Hyperlipidemia, unspecified; M85.80 Other specified disorders of bone density and structure, unspecified site; E66.9 Obesity, unspecified; Z68.32 Body mass index [BMI] 32.0-32.9, adult; Z79.899 Other long term (current) drug therapy; Z87.891 Personal history of nicotine dependence
CPT/HCPCS: 45385; 88305; J2704

== ENCOUNTER → 2023-05-04 10:03 | Outpatient (BNV) | payer BC, SELFPAY | PROVIDERS: PCP Nurse Practitioner Family; Visit Provider Internal Medicine Gastroenterology | DX: Z12.11 Encounter for screening for malignant neoplasm of colon (principal); K63.5 Polyp of colon; K57.90 Diverticulosis of intestine, part unspecified, without perforation or abscess without bleeding; K64.8 Other hemorrhoids | CPT/HCPCS: 45385 ==

== ENCOUNTER 2023-05-08 10:15 | Outpatient (AMB) | payer BC, SELFPAY ==
--- NOTE | 2023-05-08 10:29 | A.OFFPC_ITS ---
Vital Signs 05/08/23 10:33 05/08/23 11:09 Height 5 ft 10 in Weight 199 lb BMI 28.6 BP 160/69 H 114/60 Blood Pressure Location Lt brachial Lt brachial Position Sitting Sitting Respiration 12 Pulse 80 Pulse Source Pulse Oximeter Temp 99.0 F Temp Source Temporal Artery Scan Pulse Oximetry (%) 100 Oxygen Delivery Method Room Air Intake Visit Reasons: transfer of care from [facility] Note: Patient is here for transfer of care from [facility]. Patient reports she has no concerns at this time. Arc Cutter Plasma Arc Required: No Accompanied by: self Allergies No Known Allergies Allergy (Verified 05/08/23 10:58) Medication List - Last Reconciled 05/08/23 by Sobeida Gonzalez, SEISMOGRAPH OBSERVER- blood pressure monitor As directed calcium carbonate (Oyster Shell Calcium) 500 mg PO DAILY 90 days cholecalciferol (vitamin D3) 25 mcg PO DAILY levothyroxine 175 mcg PO DAILY lorazepam 0.5 mg PO DAILY PRN paroxetine HCl 40 mg PO DAILY pravastatin 10 mg PO BEDTIME Tobacco use date assessed: 05/08/23 Fall risk assessment: No Falls in past year Last assessed Fall Risk: 05/08/23 Dental Screening Dental Screen Date: 05/08/23 Did you have a dental visit in the last 12 months?: Yes Did you have a dental problem in the last 6 months where you did not have access to dental care?: No Was dental information given to patient?: Patient has dentist HPI HPI Comments History of Present Illness Details 67-year-old female with TONIA with panic a ttacks, Samuel's disease, hyperlipidemia, osteopenia, obesity, impaired fasting glucose, hypertension, former smoker quit in 2021 (20 pack year history), osteoarthritis of multiple joints, vitamin-D deficiency, 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, CAD, multilevel osteoarthritis of the spine, mild mediastinal lymphadenopathy with pretracheal lymph node measuring 0.9 cm, severe diverticulosis, ckd 3a Health maintenance Colonoscopy 05/04/2023 severe diverticulosis of the sigmoid colon luminal narrowing, moderate internal hemorrhoids, moderate diverticulosis of descending colon repeat in 5 years if polyps are adematous, repeat in 10 years if benign Mammogram 09/18/2021 within normal limits, Repeat ordered today 05/2023 DEXA 09/18/2021 positive for osteopenia femoral T-score -1.1, Repeat ordered today 05/2023 Lung cancer screening January 2023 Pap 2020, declined further screening at this time. Reports negative history. Vaccines: Reports UTD on COVID, Flu, RSV [facility] Here today to establish care and for a complete physical exam. 05/08/2023 labs show a normal electrolytes , BUN 15, creatinine 0.97, EGFR 57, normal fasting glucose, normal LFTs, total cholesterol 174, LDL 105, HDL 48, triglycerides 105, urine creatinine microalbumin within normal limits [facility] Medical History (Updated 05/11/23 @ 11:55 by Sobeida Gonzalez, [facility]-) Osteoarthritis of feet, bilateral Osteoarthritis of left hip Shotty lymph nodes Metacarpal bone fracture Fracture of superior pubic ramus Closed fracture of inferior pubic ramus Anxiety Samuel's disease Hyperlipidemia Osteopenia Personal history of nicotine dependence Surgical History History of colonoscopy History of total right knee replacement (~2017) History of total left knee replacement (~2017) History of surgery on arm (~2019) History of right hip replacement (~2019) Family History Mother Bone cancer Brother Leukemia Afib Sister Aortic aneurysm Father Kidney disease Social History (Updated 05/08/23 @ 10:44 by Monique Wick CMA) Household Members: Significant Other Housing: House Are you a primary pediatric acute care unit nurse to a significant other at home: No Do you presently have visiting nurse or other home services: No 75 years or older and lives alone: No Alcohol intake: current Alcohol intake frequency: holidays/special occasions only Alcohol type: beer Patient Tobacco Use Status: Former Tobacco user Quit Date: 3 mos ago Tobacco use type: Cigarette Cigarettes Per Day: 10 Years Smoked: 25 e-Cigarette/Vaping Use: Never Used Second Hand Smoke Exposure: Yes service: No Current occupational status: employed (Part-time Job) and retired 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 1. Little interest or pleasure in doing things: not at all 2. Feeling down, depressed, or hopeless: not at all 3. Trouble falling or staying asleep, or sleeping too much: not at all 4. Feeling tired or having little energy: not at all 5. Poor appetite or overeating: not at all 6. Feeling bad about yourself - or that you are a failure or have let yourself or your family down: not at all 7. Trouble concentrating on things, such as reading the newspaper or watching television: not at all 8. Moving or speaking so slowly that other people could have noticed. Or the opposite - being so fidgety or restless that you have been moving around a lot more than usual: not at all 9. Thoughts that you would be better off or of hurting yourself in some way: not at all Total score: 0 Depression Screening Interpretation: Negative Depression Screening Done: Yes 63865 - PHQ-9 Billing: Yes Source: Developed by Drs. Keith Brown, Mayte Jin, Bereket Carter and colleagues, with an educational nina from [employer]. Thrive Questionnaire Date Thrive assessed: 05/08/23 I am a: Patient What is your living situation today?: I have a steady place to live Within the past 12 months, did the food you bought not last and you didn't have the money to get more?: Never true Within the past 12 months, did you worry whether your food would run out before you got money to buy more?: Never true Do you have trouble paying for medicines?: No Do you have trouble getting transportation to medical appointments?: No Do you have trouble paying your heating and electricity bill?: No Do you have trouble taking care of your child, family member or friend?: No Do you have trouble with day-to-day activities such as bathing, preparing meals, shopping, managing finances, etc.?: No Are you currently unemployed and looking for a job?: No Are you interested in more education?: No Please select the resources that you would like help with: None Currently or been in a relationship where the following occur: no concerns reported THRIVE Score: 0 AUDIT C Alcohol Use Questionnaire (AUDIT-C) 1. How often do you have a drink containing alcohol?: Never 2. How many drinks containing alcohol do you have on a typical day when you are drinking?: 3 or 4 3. How often do you have six or more drinks on one occasion?: Never Total Score: 1 Score Reviewed/Action Taken: Yes TONIA-7 AMB Questionnaire TONIA-7 Date TONIA - 7 assessed: 05/08/23 Feeling nervous, anxious, or on edge: 1 = Several days Not being able to stop or control worryin = Not at all Worrying too much about different things: 1 = Several days Trouble relaxin = Not at all Being so restless that it is hard to sit still: 0 = Not at all Becoming easily annoyed or irritable: 0 = Not at all Feeling afraid as if something awful might happen: 0 = Not at all Total TONIA-7 score (0-4 normal; 5-9 mild; 10-14 moderate; 15-21 severe): 2 Source: Developed by Drs. Keith Brown, Mayte Jin, Bereket Carter and colleagues, with an educational nina from [employer]. TONIA-7 Assessment Billing TONIA-7 Assessment Tool: TONIA-7 Assessment 89257 Review of Systems Const Details: Constitutional: Denies fever. Skin: Denies rash. Eye: Denies eye pain. ENMT: Denies sore throat and nasal congestion. Respiratory: Denies shortness of breath and cough. Gastrointestinal: Denies nausea, vomiting or abdominal pain. Cardiovascular: Denies chest pain and syncope. Genitourinary: Denies dysuria. Musculoskeletal: Denies back pain and extremity pain. Neurologic: Denies headaches, confusion, and weakness. Psychiatric: Denies suicidal thoughts and substance abuse. Allergy/ Immunologic: Denies impaired immunity. Physical exam (Primary Care) Vital Signs: Last Vital Signs Temp 99.0 F 05/08/23 10:33 Pulse 80 05/08/23 10:33 Resp 12 05/08/23 10:33 BP 114/60 05/08/23 11:09 Pulse Ox 100 05/08/23 10:33 Oxygen Delivery Method Room Air 05/08/23 10:33 BMI result Body Mass Index 28.6 Tobacco/Smoking Status: Tobacco use Status Tobacco use date assessed 05/08/23 05/08/23 10:31 Patient Tobacco Use Status Former Tobacco user 05/08/23 10:44 Tobacco use type Cigarette 05/08/23 10:44 e-Cigarette/Vaping Use Never Used 05/08/23 10:44 PHQ-9: PHQ-9 Score PHQ-9: Total score 0 05/11/23 10:22 Depression Screening Interpretation: Negative Thrive Assessment: Date of Thrive Assessment Date Thrive assessed 05/08/23 05/08/23 10:33 Currently or been in a relationship where the following occur: no concerns reported Const Other: General: Well developed, well nourished, in no acute distress. Appears stated age. Head: Normocephalic, atraumatic. Eyes: Pupils are equal, round and reactive to light and accommodation. Conjunctivae are clear. Vision grossly normal. Ears: TMs clear AU, EACS WNL Nose: Patent, without discharge. Mouth: There are no ulcers or lesions noted. No inflammation, no post nasal drip, no plaques nor exudates. Neck: Supple, no adenopathy or thyromegaly. Lungs: Clear to auscultation bilaterally. No rales, rhonchi or wheeze noted. Good air flow in all jimenez. Heart: Regular rate and rhythm. No murmurs, click, rubs or gallops are noted. Abdomen: Bowel sounds present in all quadrants. The abdomen is soft, nontender, with no masses or organomegaly noted. No hernias are noted. Musculoskeletal: Joints are nontender, without swelling, redness, or effusions. Range of motion is observed to be normal. Pulses: Peripheral pulses are equal and palpable bilaterally. Extremities: No clubbing, cyanosis nor edema is noted. Neurologic: Gait and station normal. Cranial Nerves 2-12 intact. Motor strength grossly symmetrical and intact. No sensory loss. Balance normal. Skin: No rashes, ulcers, or lesions noted. Turgor is good. Skin color is good. Hair and nails are without abnormalities. Psych: Normal eye contact, affect and mood appropriate, and normal interactions. Patient is alert and appropriate to context. Assessment and Plan Assessment & Plan (1) Annual physical exam: Code(s): Z00.00 - Encounter for general adult medical examination without abnormal findings (2) Post-menopausal: Comment: (Bone Dexa Femoral T-score: -1.1 - 09/18/21) DEXA ordered today Code(s): Z78.0 - Asymptomatic menopausal state (3) Osteopenia: Comment: (Bone Dexa Femoral T-score: -1.1 - 09/18/21) DEXA ordered today Code(s): M85.80 - Other specified disorders of bone density and structure, unspecified site Qualifiers: Osteopenia location: femoral neck Laterality: left Qualified Code(s): M85.852 - Other specified disorders of bone density and structure, left thigh (4) Screening mammogram for breast cancer: Comment: Mammogram ordered Code(s): Z12.31 - Encounter for screening mammogram for malignant neoplasm of breast (5) Samuel's disease: Comment: Currently on levothyroxine 175 mcg daily. Thyroid labs checked today within normal limits. Continue current dose Code(s): E06.3 - Autoimmune thyroiditis (6) Hyperlipidemia: Comment: On pravastatin 10 mg daily. 05/23 total cholesterol 174, LDL 105, HDL 48, triglycerides 105. Continue Code(s): E78.5 - Hyperlipidemia, unspecified Qualifiers: Hyperlipidemia type: mixed hyperlipidemia Qualified Code(s): E78.2 - Mixed hyperlipidemia (7) Elevated fasting glucose: Comment: Normal fasting glucose on labs 05/2023 continue to monitor Code(s): R73.01 - Impaired fasting glucose (8) Low vitamin D level: Comment: Vitamin-D level ordered. Currently taking vitamin D3 25 mcg p.o. daily. Code(s): R79.89 - Other specified abnormal findings of blood chemistry (9) CKD (chronic kidney disease) stage 3, GFR 30-59 ml/min: Comment: 05/08/2023 labs show a normal electrolytes, BUN 15, creatinine 0.97, EGFR 57,urine creatinine microalbumin within normal limits Code(s): N18.30 - Chronic kidney disease, stage 3 unspecified Qualifiers: Chronic kidney disease stage 3 subtype: stage 3a (GFR 45-59) Qualified Code(s): N18.31 - Chronic kidney disease, stage 3a (10) Personal history of nicotine dependence: Comment: (former smoker - quit 2021) Code(s): Z87.891 - Personal history of nicotine dependence (11) Generalized anxiety disorder with panic attacks: Comment: Currently managed on lorazepam p.r.n. paroxetine 40 mg p.o. daily. Continue Code(s): F41.1 - Generalized anxiety disorder; F41.0 - Panic disorder [episodic paroxysmal anxiety] Plan Health screenings for women ages 18 to 39 You should visit your health care provider from time to time, even if you are healthy. The purpose of these visits is to: Screen for medical issues Assess your risk for future medical problems Encourage a healthy lifestyle Update vaccinations and other preventive care services Help you get to know your provider in case of an illness Information Even if you feel fine, you should still see your provider for regular checkups. These visits can help you avoid problems in the future. For example, the only way to find out if you have high blood pressure is to have it checked regularly. High blood sugar and high cholesterol levels also may not have any symptoms in the early stages. A simple blood test can check for these conditions. There are specific times when you should see your provider or receive specific health screenings. The [place] Preventive Services Task Force publishes a list of recommended screenings. Below are screening guidelines for women ages 18 to 39. BLOOD PRESSURE SCREENING Your blood pressure should be checked at least once every 3 to 5 years if: Your blood pressure is in the normal range (top number less than 120 mm Hg and bottom number less than 80 mm Hg) You don't have risk factors for high blood pressure Ask your provider if you need your blood pressure checked more often if: The top number is 120 to 129 mm Hg or the bottom number is 70 to 79 mm Hg You have diabetes, heart disease, kidney problems, are overweight, or have certain other health conditions You have a first-degree relative with high blood pressure You are Black You had high blood pressure during a If the top number is 130 mm Hg or greater or the bottom number is 80 mm Hg or greater, this is considered stage 1 hypertension. Schedule an appointment with y our provider to learn how you can reduce your blood pressure. Watch for blood pressure screenings in your area. Ask your provider if you can stop in to have your blood pressure checked. BREAST CANCER SCREENING Experts do not agree about the benefits of breast self-exams in finding breast cancer or saving lives. Talk to your provider about what is best for you. A screening mammogram is not recommended for most women under age 40. Your provider may discuss and recommend mammograms, MRI scans, or ultrasounds if you have an increased risk for breast cancer, such as: A mother or sister who had breast cancer at a young age (most often starting screening earlier than the age the close relative was diagnosed) You carry a high-risk genetic marker CERVICAL CANCER SCREENING Cervical cancer screening should start at age 21 years unless your provider advises otherwise. After the first test: Women ages 21 through 29 should have a Pap test every 3 years. Exoprts do not agree on whether HPV testing is recommended for this age group. Women ages 30 through 65 should be screened with either a Pap test every 3 years or the HPV test every 5 years or both tests every 5 years (called cotesting ). Women who have been treated for precancer (cervical dysplasia) should continue to have Pap tests for 20 years after treatment or until age 65, whichever is longer. If you have had your uterus and cervix removed (total hysterectomy), and you have not been diagnosed with cervical cancer or precancer (high grade cervical neoplasia), you do not need cervical cancer screening. CHOLESTEROL SCREENING Cholesterol screening should begin at: Age 45 for women with no known risk factors for coronary heart disease Age 20 for women with known risk factors for coronary heart disease Repeat cholesterol screening should take place: Every 5 years for women with normal cholesterol levels More often if changes occur in lifestyle (including weight gain and diet) More often if you have diabetes, heart disease, kidney problems, or certain other conditions DIABETES SCREENING You should be screened for diabetes starting at age 35 and then repeated every 3 years if you have no risk factors for diabetes. Screening may need to start earlier and be repeated more often if you have other risk factors for diabetes, such as: You have a first degree relative with diabetes. You are overweight or have obesity. You have high blood pressure, prediabetes, or a history of heart disease. Screening for diabetes should be done if you are planning to become and you are overweight and have other risk factors such as high blood pressure. DENTAL EXAM Go to the dentist once or twice every year for an exam and cleaning. Your dentist will evaluate if you need more frequent visits. EYE EXAM Have an eye exam every 5 to 10 years before age 40. If you have vision problems, have an eye exam every 2 years or more often if recommended by your provider. You should have an eye exam that includes an examination of your retina (back of your eye) at least every year if you have diabetes. IMMUNIZATIONS Commonly needed vaccines include: Flu shot: get one every year. COVID-19 vaccine: ask your provider what is best for you. Tetanus-diphtheria and acellular pertussis (Tdap) vaccine: have one at or after age 19 as one of your tetanus-diphtheria vaccines if you did not receive it as an adolescent. Tetanus-diphtheria: have a booster (or Tdap) every 10 years. Varicella vaccine: receive 2 doses if you never had chickenpox or the varicella vaccine. Hepatitis B vaccine: receive 2, 3, or 4 doses, depending on your exact circumstances. Measles, mumps, and rubella (MMR) vaccine: receive 1 to 2 doses if you are not already immune to MMR. Your provider can tell you if you are immune. Ask your provider about the human papillomavirus (HPV) vaccine if: You have not received the HPV vaccine in the past You have not completed the full vaccine series (you should catch up on this shot) Ask your provider if you should receive other immunizations if you have certain health problems that increase your risk for some diseases such as pneumonia. INFECTIOUS DISEASE SCREENING Women who are sexually active should be screened for chlamydia and gonorrhea up until age 25. Women 25 years and older should be screened for chlamydia and gonorrhea if at high risk. Screening for hepatitis C: All adults ages 18 to 79 should get a one-time test for hepatitis C. people should be screened at every . Screening for human immunodeficiency virus (HIV): All people ages 15 to 65 should get a one-time test for HIV. Depending on your lifestyle and medical history, you may also need to be screened for infections such as syphilis and HIV, as well as other infections. PHYSICAL EXAM All adults should visit their provider from time to time, even if they are healthy. The purpose of these visits is to: Screen for disease Assess your risk of future medical problems Encourage a healthy lifestyle Update your vaccinations and other preventive care services Maintain a relationship with a provider in case of an illness Your height, weight, and BMI should be checked at every exam. During your exam, your provider may ask you about: Depression and anxiety Diet and exercise Alcohol and tobacco use Safety issues, such as using seat belts, smoke detectors, and intimate partner violence Your medicines and risk for interactions SKIN SELF-EXAM Your provider may check your skin for signs of skin cancer, especially if you're at high risk, such as if you: Have had skin cancer before Have close relatives with skin cancer Have a weakened immune system OTHER SCREENING Talk with your provider about colon cancer screening if you have a strong family history of colon cancer or polyps, or if you have had inflammatory bowel disease or polyps yourself. Routine bone density screening of women under 40 is not recommended. Return to office in 3 months for follow up of chronic conditions fasting labs ordered to be done 1 week before this appointment please Orders: Orders MM tomosynthesis screening BI 05/08/23 M85.80 - Other specified disorders of bone density and structure, unspecified site, Z12.31 - Encounter for screening mammogram for malignant neoplasm of breast, Z78.0 - Asymptomatic menopausal state Comprehensive [place]. Panel Fast 05/08/23 E06.3 - Autoimmune thyroiditis, E78.5 - Hyperlipidemia, unspecified, M85.80 - Other specified disorders of bone density and structure, unspecified site, R73.01 - Impaired fasting glucose, R79.89 - Other specified abnormal findings of blood chemistry Comprehensive [place]. Panel Fast 07/06/23 E06.3 - Autoimmune thyroiditis, E78.5 - Hyperlipidemia, unspecified, N18.30 - Chronic kidney disease, stage 3 unspecified XR DEXA axial skeleton 05/08/23 M85.80 - Other specified disorders of bone density and structure, unspecified site, Z12.31 - Encounter for screening mammogram for malignant neoplasm of breast, Z78.0 - Asymptomatic menopausal state Lipid Panel 05/08/23 E06.3 - Autoimmune thyroiditis, E78.5 - Hyperlipidemia, unspecified, M85.80 - Other specified disorders of bone density and structure, unspecified site, R73.01 - Impaired fasting glucose, R79.89 - Other specified abnormal findings of blood chemistry Microalbumin, Random (w Creat) 05/08/23 E06.3 - Autoimmune thyroiditis, E78.5 - Hyperlipidemia, unspecified, M85.80 - Other specified disorders of bone density and structure, unspecified site, R73.01 - Impaired fasting glucose, R79.89 - Other specified abnormal findings of blood chemistry Vitamin D 1,25 dihydroxy 05/08/23 E06.3 - Autoimmune thyroiditis, E78.5 - Hyperlipidemia, unspecified, M85.80 - Other specified disorders of bone density and structure, unspecified site, R73.01 - Impaired fasting glucose, R79.89 - Other specified abnormal findings of blood chemistry Lipid Panel 07/06/23 E06.3 - Autoimmune thyroiditis, E78.5 - Hyperlipidemia, unspecified, N18.30 - Chronic kidney disease, stage 3 unspecified TSH reflex Free T4 07/06/23 E06.3 - Autoimmune thyroiditis, E78.5 - Hyperlipidemia, unspecified, N18.30 - Chronic kidney disease, stage 3 unspecified Medications: Refilled levothyroxine 175 mcg PO DAILY 90 caps 1RF E06.3 - Autoimmune thyroiditis paroxetine HCl 40 mg PO DAILY 90 tabs 1RF F41.9 - Anxiety disorder, unspecified pravastatin 10 mg PO BEDTIME 90 tabs 1RF E78.5 - Hyperlipidemia, unspecified Coding Level of Care Code Est Pt Prev Care >65y(31222) Diagnoses Annual physical exam Z00.00 Post-menopausal Z78.0 Osteopenia of neck of left femur M85.852 Osteopenia location: femoral neck Laterality: left Screening mammogram for breast cancer Z12.31 Samuel's disease E06.3 Mixed hyperlipidemia E78.2 Hyperlipidemia type: mixed hyperlipidemia Elevated fasting glucose R73.01 Low vitamin D level R79.89 Stage 3a chronic kidney disease N18.31 Chronic kidney disease stage 3 subtype: stage 3a (GFR 45-59) Personal history of nicotine dependence Z87.891 Generalized anxiety disorder with panic attacks F41.1; F41.0 Additional Codes TONIA-7 Assessment Billing - TONIA-7 Assessment Tool: TONIA-7 Assessment [id number] ([id number])
[2023-05-08 10:33] VITALS: BP 160/69; PULSE 80; RESP 12; TEMP 37.2; O2SAT 100; BMI 28.6
[2023-05-08 11:09] VITALS: BP 114/60
== END 2023-05-08 11:40 | disposition home or self-care (01) ==
PROVIDERS: PCP Nurse Practitioner Family; Visit Provider Nurse Practitioner Family
DX: Z00.00 Encounter for general adult medical examination without abnormal findings (principal); N18.31 Chronic kidney disease, stage 3a; M85.852 Other specified disorders of bone density and structure, left thigh; Z78.0 Asymptomatic menopausal state; Z12.31 Encounter for screening mammogram for malignant neoplasm of breast; E06.3 Autoimmune thyroiditis; E78.2 Mixed hyperlipidemia; R73.01 Impaired fasting glucose; R79.89 Other specified abnormal findings of blood chemistry; Z87.891 Personal history of nicotine dependence; F41.1 Generalized anxiety disorder; F41.0 Panic disorder [episodic paroxysmal anxiety]
CPT/HCPCS: 99397

== ENCOUNTER 2023-05-08 11:28 | Outpatient (REF) | payer BC, SELFPAY ==
[2023-05-08 15:49] LABS: Creatinine Urine 185.29 mg/dL; Microalbum/Creatinine Ratio Ur 7.5 ug/mg cr (<30)
[2023-05-08 15:51] LABS: Alanine Aminotransferase 15 U/L (0-31); Albumin Level 4.4 g/dL (3.5-5.0); Alkaline Phosphatase 96 U/L (39-117); Anion Gap 11 (12-20); Aspartate Amino Transferase 18 U/L (5-31); Bilirubin Total 0.4 mg/dL (0.0-1.0); Blood Urea Nitrogen 15 mg/dL (9-16); Calcium 9.6 mg/dL (8.4-10.2); Carbon Dioxide 29 mmol/L (22-29); Chloride 106 mmol/L (96-108); Cholesterol 174 mg/dL (<200); Estimated Glomerular Filt Rate 57; Glucose Fasting 84 mg/dL (60-99); HDL Cholesterol 48 mg/dL (>40); LDL Cholesterol Calculated 105 mg/dL (<100); Potassium 4.6 mmol/L (3.3-5.1); Sodium 141 mmol/L (135-145); Total Protein 7.7 g/dL (6.5-8.0); Triglycerides 105 mg/dL (<150)
[2023-05-12 16:18] LABS: VITAMIN D (1,25 OH) D3 70 pg/mL; Vit D (1,25-Dihydroxy) Total 70 pg/mL (18-72); Vitamin D (1,25 OH) D2 <8 pg/mL
== END 2023-05-08 11:29 | disposition home or self-care (01) ==
LOC: HO.WFDLDS 11:28
PROVIDERS: Visit Provider Nurse Practitioner Family
DX: E06.3 Autoimmune thyroiditis (principal); M85.80 Other specified disorders of bone density and structure, unspecified site; R79.89 Other specified abnormal findings of blood chemistry; R73.01 Impaired fasting glucose; E78.5 Hyperlipidemia, unspecified
CPT/HCPCS: 36415; 80053; 80061; 82043; 82570; 82652

== ENCOUNTER 2023-08-24 09:09 | Outpatient (AMB) | payer BC, SELFPAY ==
[2023-08-24 09:11] VITALS: BP 138/92; PULSE 83; O2SAT 97; BMI 31.9
--- NOTE | 2023-08-24 09:11 | MHC.PC.OV ---
Vital Signs 08/24/23 09:11 08/24/23 09:27 Height 5 ft 10 in Weight 222 lb 2 oz BMI 31.9 BP 138/92 H 118/64 Blood Pressure Location Rt brachial Lt brachial Position Sitting Sitting Pulse 83 Pulse Source Pulse Oximeter Pulse Oximetry (%) 97 Oxygen Delivery Method Room Air Intake Visit Reasons: complex dz mgmt Allergies No Known Allergies Allergy (Verified 08/24/23 09:18) Medication List - Last Reconciled 08/24/23 by Sobeida Gonzalez, [employer] SUPERVISOR- blood pressure monitor As directed calcium carbonate (Oyster Shell Calcium) 500 mg PO DAILY 90 days cholecalciferol (vitamin D3) 25 mcg PO DAILY levothyroxine 175 mcg PO DAILY lorazepam 0.5 mg PO DAILY PRN paroxetine HCl 40 mg PO DAILY pravastatin 10 mg PO BEDTIME Tobacco use date assessed: 08/24/23 Fall risk assessment: No Falls in past year Last assessed Fall Risk: 08/24/23 Dental Screening Dental Screen Date: 08/24/23 Did you have a dental visit in the last 12 months?: Yes Did you have a dental problem in the last 6 months where you did not have access to dental care?: No Was dental information given to patient?: Patient has dentist HPI HPI Comments History of Present Illness Details 67-year-old female with TONIA with panic attacks, Samuel's disease, hyperlipidemia, osteopenia, obesity, impaired fasting glucose, hypertension, former smoker quit in 2021 (20 pack year history), osteoarthritis of multiple joints, vitamin-D deficiency, 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, CAD multilevel osteoarthritis of the spine, mild mediastinal lymphadenopathy with pretracheal lymph node measuring 0.9 cm, severe diverticulosis Health maintenance Colonoscopy 05/04/2023 severe diverticulosis of the sigmoid colon luminal narrowing, moderate internal hemorrhoids, moderate diverticulosis of descending colon repeat in 5 years if polyps are adematous, repeat in 10 years if benign Mammogram 09/18/2021 within normal limits DEXA 09/18/2021 positive for osteopenia femoral T-score -1.1 Lung cancer screening January 2023 Pap [facility] Here today to f/u on chronic conditions Tolerant and compliant w/ statin & levothyroxine Taking paxil as directed,sparing use of ativan. 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 Euthyroid. Renal labs stable. Glucose 100 (was 101) Also has varicose veins in BLE Plan: Lorazepan refill Cont levothyroxine 175 mcg QD Increase pravastatin from 10mg QD to 20 mg QD refer to Vascular and check US Duplex BLE Reorder labs 3 months RTO in 3-4 months, routine f/u chronic conditions, sooner PRN PFSH Medical History Osteoarthritis of feet, bilateral Osteoarthritis of left hip Shotty lymph nodes Metacarpal bone fracture Fracture of superior pubic ramus Closed fracture of inferior pubic ramus Anxiety Samuel's disease Hyperlipidemia Osteopenia Personal history of nicotine dependence Surgical History History of colonoscopy History of total right knee replacement (~2017) History of total left knee replacement (~2017) History of surgery on arm (~2018) History of right hip replacement (~2019) Family History Mother Bone cancer Brother Leukemia Afib Sister Aortic aneurysm Father Kidney disease Social History Household Members: Significant Other Housing: House Are you a primary morning caregiver to a significant other at home: No Do you presently have visiting nurse or other home services: No Alcohol intake: current Alcohol intake frequency: holidays/special occasions only Alcohol type: beer Patient Tobacco Use Status: Current everyday Tobacco user Tobacco use type: Cigarette Cigarettes Per Day: 5 Years Smoked: 25 e-Cigarette/Vaping Use: Never Used Second Hand Smoke Exposure: Yes service: No Current occupational status: employed (Part-time Job) and retired 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 1. Little interest or pleasure in doing things: not at all 2. Feeling down, depressed, or hopeless: not at all 3. Trouble falling or staying asleep, or sleeping too much: not at all 4. Feeling tired or having little energy: not at all 5. Poor appetite or overeating: not at all 6. Feeling bad about yourself - or that you are a failure or have let yourself or your family down: not at all 7. Trouble concentrating on things, such as reading the newspaper or watching television: not at all 8. Moving or speaking so slowly that other people could have noticed. Or the opposite - being so fidgety or restless that you have been moving around a lot more than usual: not at all 9. Thoughts that you would be better off or of hurting yourself in some way: not at all Total score: 0 Depression Screening Interpretation: Negative Depression Screening Done: Yes 33558 - PHQ-9 Billing: Yes Source: Developed by Drs. Keith Brown, Mayte Jin, Bereket Carter and colleagues, with an educational nina from [employer]. Thrive Questionnaire Date Thrive assessed: 05/08/23 I am a: Patient What is your living situation today?: I have a steady place to live Within the past 12 months, did the food you bought not last and you didn't have the money to get more?: Never true Within the past 12 months, did you worry whether your food would run out before you got money to buy more?: Never true Do you have trouble paying for medicines?: No Do you have trouble getting transportation to medical appointments?: No Do you have trouble paying your heating and electricity bill?: No Do you have trouble taking care of your child, family member or friend?: No Do you have trouble with day-to-day activities such as bathing, preparing meals, shopping, managing finances, etc.?: No Are you currently unemployed and looking for a job?: No Are you interested in more education?: No Please select the resources that you would like help with: None Currently or been in a relationship where the following occur: no concerns reported THRIVE Score: 0 AUDIT C Alcohol Use Questionnaire (AUDIT-C) 1. How often do you have a drink containing alcohol?: Monthly or less 2. How many drinks containing alcohol do you have on a typical day when you are drinking?: 3 or 4 3. How often do you have six or more drinks on one occasion?: Never Total Score: 2 Score Reviewed/Action Taken: Yes TONIA-7 AMB Questionnaire TONIA-7 Date TONIA - 7 assessed: 05/08/23 Feeling nervous, anxious, or on edge: 1 = Several days Not being able to stop or control worryin = Not at all Worrying too much about different things: 1 = Several days Trouble relaxin = Not at all Being so restless that it is hard to sit still: 0 = Not at all Becoming easily annoyed or irritable: 0 = Not at all Feeling afraid as if something awful might happen: 0 = Not at all Total TONIA-7 score (0-4 normal; 5-9 mild; 10-14 moderate; 15-21 severe): 2 Source: Developed by Drs. Keith Brown, Mayte Jin, Bereket Carter and colleagues, with an educational nina from [employer]. TONIA-7 Assessment Billing TONIA-7 Assessment Tool: TONIA-7 Assessment 50017 Review of Systems Const All systems reviewed & are unremarkable except as noted in HPI and below Physical exam (Primary Care) Vital Signs: Last Vital Signs Pulse 83 08/24/23 09:11 BP 118/64 08/24/23 09:27 Pulse Ox 97 08/24/23 09:11 Oxygen Delivery Method Room Air 08/24/23 09:11 BMI result Body Mass Index 31.9 Tobacco/Smoking Status: Tobacco use Status Tobacco use date assessed 08/24/23 08/24/23 09:16 Patient Tobacco Use Status Current everyday Tobacco 08/24/23 09:16 Tobacco use type Cigarette 08/24/23 09:16 e-Cigarette/Vaping Use Never Used 08/24/23 09:16 PHQ-9: PHQ-9 Score PHQ-9: Total score 0 08/24/23 09:16 Depression Screening Interpretation: Negative Thrive Assessment: Date of Thrive Assessment Date Thrive assessed 05/08/23 08/24/23 09:16 Currently or been in a relationship where the following occur: no concerns reported Const Other: awake alert oriented RRR LS CTAB BLE w/o edema, + varicose veins upper and lower parts of bilat lower ext Mood and affect appropriate Assessment and Plan Assessment & Plan (1) Generalized anxiety disorder with panic attacks: Comment: Currently managed on lorazepam p.r.n. paroxetine 40 mg p.o. daily. Continue Code(s): F41.1 - Generalized anxiety disorder; F41.0 - Panic disorder [episodic paroxysmal anxiety] (2) CKD (chronic kidney disease) stage 3, GFR 30-59 ml/min: Comment: 05/08/2023 labs show a normal electrolytes, BUN 15, creatinine 0.97, EGFR 57,urine creatinine microalbumin within normal limits Code(s): N18.30 - Chronic kidney disease, stage 3 unspecified Qualifiers: Chronic kidney disease stage 3 subtype: stage 3a (GFR 45-59) Qualified Code(s): N18.31 - Chronic kidney disease, stage 3a (3) Samuel's disease: Comment: Currently on levothyroxine 175 mcg daily. Thyroid labs checked today within normal limits. Continue current dose Code(s): E06.3 - Autoimmune thyroiditis (4) Hyperlipidemia: Code(s): E78.5 - Hyperlipidemia, unspecified Qualifiers: Hyperlipidemia type: mixed hyperlipidemia Qualified Code(s): E78.2 - Mixed hyperlipidemia (5) Low vitamin D level: Comment: . Currently taking vitamin D3 25 mcg p.o. daily. Code(s): R79.89 - Other specified abnormal findings of blood chemistry (6) Elevated fasting glucose: Code(s): R73.01 - Impaired fasting glucose (7) Varicose veins of both lower extremities: Code(s): I83.93 - Asymptomatic varicose veins of bilateral lower extremities Qualifiers: Varicose vein complication: asymptomatic Qualified Code(s): I83.93 - Asymptomatic varicose veins of bilateral lower extremities Plan: This note is constructed using voice recognition software. While every effort has been made to ensure accuracy in under water assistant, still errors may have been included Sometimes, these errors may affect the content or meaning of the given sentence . Total time spent caring for the patient today was 47 minutes. This includes time spent before the visit reviewing the chart, time spent during the visit, and time spent after the visit on documentation Orders: Orders US venous duplex LE BI Today I83.93 - Asymptomatic varicose veins of bilateral lower extremities Comprehensive [place]. Panel Fast 11/01/23 E06.3 - Autoimmune thyroiditis, E78.2 - Mixed hyperlipidemia, R73.01 - Impaired fasting glucose, R79.89 - Other specified abnormal findings of blood chemistry Lipid Panel 11/01/23 E06.3 - Autoimmune thyroiditis, E78.2 - Mixed hyperlipidemia, R73.01 - Impaired fasting glucose, R79.89 - Other specified abnormal findings of blood chemistry Referrals Vascular Surgery Referral I83.93 - Asymptomatic varicose veins of bilateral lower extremities Medications: New pravastatin 20 mg PO BEDTIME 90 tabs 1RF Refilled lorazepam 0.5 mg PO DAILY PRN 30 tabs 0RF anxiety paroxetine HCl 40 mg PO DAILY 90 tabs 1RF F41.9 - Anxiety disorder, unspecified levothyroxine 175 mcg PO DAILY 90 caps 1RF E06.3 - Autoimmune thyroiditis Discontinued flu vacc [id number] 6mos up(PF) Discontinued Reason: Order 0.5 mL IM ONCE 0.5 mL 0RF Z23 - Encounter for immunization pravastatin Discontinued Reason: Doctor's Order 10 mg PO BEDTIME 90 tabs 1RF E78.5 - Hyperlipidemia, unspecified Patient Instructions: RTO in 3-4 months, routine f/u chronic conditions, sooner PRN Plan: Lorazepan refill Cont levothyroxine 175 mcg QD Increase pravastatin from 10mg QD to 20 mg QD refer to Vascular and check US Duplex BLE Reorder labs 3 months RTO in 3-4 months, routine f/u chronic conditions, sooner PRN Coding Level of Care Code Est Pt Level 5 (60509) Complex EM visit Add On G2211 Diagnoses Generalized anxiety disorder with panic attacks F41.1; F41.0 Stage 3a chronic kidney disease N18.31 Chronic kidney disease stage 3 subtype: stage 3a (GFR 45-59) Samuel's disease E06.3 Mixed hyperlipidemia E78.2 Hyperlipidemia type: mixed hyperlipidemia Low vitamin D level R79.89 Elevated fasting glucose R73.01 Asymptomatic varicose veins of both lower extremities I83.93 Varicose vein complication: asymptomatic Additional Codes TONIA-7 Assessment Billing - TONIA-7 Assessment Tool: TONIA-7 Assessment [id number] ([id number])
[2023-08-24 09:27] VITALS: BP 118/64
== END 2023-08-24 09:32 | disposition home or self-care (01) ==
PROVIDERS: PCP Nurse Practitioner Family; Visit Provider Nurse Practitioner Family
DX: N18.31 Chronic kidney disease, stage 3a (principal); F41.1 Generalized anxiety disorder; F41.0 Panic disorder [episodic paroxysmal anxiety]; E06.3 Autoimmune thyroiditis; E78.2 Mixed hyperlipidemia; R79.89 Other specified abnormal findings of blood chemistry; R73.01 Impaired fasting glucose; I83.93 Asymptomatic varicose veins of bilateral lower extremities
CPT/HCPCS: 99215

== ENCOUNTER 2023-08-24 09:36 | Outpatient (REF) | payer BC, SELFPAY ==
[2023-08-24 13:04] LABS: Alanine Aminotransferase 19 U/L (0-31); Albumin Level 4.2 g/dL (3.5-5.0); Alkaline Phosphatase 94 U/L (39-117); Anion Gap 14 (12-20); Aspartate Amino Transferase 20 U/L (5-31); Bilirubin Total 0.4 mg/dL (0.0-1.0); Blood Urea Nitrogen 17 mg/dL (9-16); Calcium 9.4 mg/dL (8.4-10.2); Carbon Dioxide 25 mmol/L (22-29); Chloride 107 mmol/L (96-108); Cholesterol 222 mg/dL (<200); Estimated Glomerular Filt Rate > 60; Glucose Fasting 100 mg/dL (60-99); HDL Cholesterol 48 mg/dL (>40); LDL Cholesterol Calculated 136 mg/dL (<100); Potassium 4.2 mmol/L (3.3-5.1); Sodium 142 mmol/L (135-145); Total Protein 7.3 g/dL (6.5-8.0); Triglycerides 190 mg/dL (<150)
[2023-08-24 13:25] LABS: TSH reflex Free T4 1.12 uIU/mL (0.32-4.0)
== END 2023-08-24 09:37 | disposition home or self-care (01) ==
LOC: HO.WFDLDS 09:36
PROVIDERS: Visit Provider Nurse Practitioner Family
DX: N18.30 Chronic kidney disease, stage 3 unspecified (principal); E78.5 Hyperlipidemia, unspecified; E06.3 Autoimmune thyroiditis
CPT/HCPCS: 36415; 80053; 80061; 84443

== ENCOUNTER 2023-08-28 12:53 | Outpatient (REF) | payer BC, SELFPAY ==
--- NOTE | ~2023-08-28 | US_ITS ---
EXAMINATION: US LOWER EXTREMITY VENOUS (REFLUX EXAM), BILATERAL CLINICAL INFORMATION: Asymptomatic varicose veins of bilateral lower extremities COMPARISON: None. TECHNIQUE: Color flow triplex imaging and compression Doppler was performed to evaluate both the deep and the superficial systems bilaterally. To evaluate the superficial system, the examination was performed in the upright position. Color-flow Doppler ultrasound and compression ultrasound were utilized. In addition, maneuvers were utilized to demonstrate reflux. FINDINGS: 1. DEEP VENOUS ULTRASOUND OF THE RIGHT LOWER EXTREMITY: Common Femoral Vein: Compressible, normal respiratory variation and augmented flow. Femoral Vein: Compressible, normal color flow and augmentation. Popliteal Vein: Compressible, normal augmentation. Deep Reflux: There is no evidence of reflux in the deep system in either the common femoral vein, superficial femoral or the popliteal vein. There is no evidence of a Stark's cyst. 2. SUPERFICIAL ULTRASOUND WITH DOPPLER OF RIGHT LOWER EXTREMITY: GREAT SAPHENOUS VEIN: Saphenofemoral Junction: 0.7 cm; Reflux: 2444 ms Proximal Thigh: 0.5 cm; Reflux: 0 ms Mid Thigh: 0.3 cm; Reflux: 0 ms Distal Thigh: 0.4 cm; Reflux: 0 ms At Knee: 0.3 cm; Reflux: 0 ms Proximal Calf: 0.2 cm; Reflux: 0 ms Mid Calf: 0.3 cm; Reflux: 0 ms Distal Calf: 0.1 cm; Reflux: 0 ms DUPLICATED MEDIAL GREAT SAPHENOUS VEIN: Diameter: None imaged Reflux: NA DUPLICATED LATERAL GREAT SAPHENOUS VEIN: Diameter: 1.4 cm at the SFJ, 0.3 cm at the mid thigh Reflux: 1292 ms SMALL SAPHENOUS VEIN: Saphenopopliteal Junction: 0.2 cm; Reflux: 0 ms Proximal: 0.2 cm; Reflux: 0 ms Distal: 0.2 cm; Reflux: 0 ms VEIN OF GIACOMINI: Size: 0.3 Reflux: 0 ms PERFORATORS: Location: SSV mid Size: 0.2 cm Reflux: 0 ms Location: SSV mid Size: 0.2 cm Reflux: 0 ms Location: Mid thigh Size: 0.2 cm Reflux: 0 ms Location: Mid calf Size: 0.3 cm Reflux: 0 ms VARICOSITIES: Location: ASV mid Size: 0.8 cm Reflux: Greater than 2736 ms Location: Proximal calf Size: 0.3 cm Reflux: Greater than 2752 ms Location: Proximal lateral calf Size: 0.3 cm Reflux: 0 ms 3. DEEP VENOUS ULTRASOUND OF THE LEFT LOWER EXTREMITY: Common Femoral Vein: Compressible, normal respiratory variation and augmented flow. Femoral Vein: Compressible, normal color flow and augmentation. Popliteal Vein: Compressible, normal augmentation. Deep Reflux: There is no evidence of reflux in the deep system in either the common femoral vein, superficial femoral or the popliteal vein. There is no evidence of a Stark's cyst. 4. SUPERFICIAL ULTRASOUND WITH DOPPLER OF LEFT LOWER EXTREMITY: GREAT SAPHENOUS VEIN: Saphenofemoral Junction: 0.4 cm; Reflux: 0 ms Proximal Thigh: 0.6 cm; Reflux: 0 ms Mid Thigh: 0.4 cm; Reflux: 0 ms Distal Thigh: 0.3 cm; Reflux: 0 ms At Knee: 0.4 cm; Reflux: 0 ms Proximal Calf: 0.2 cm; Reflux: 0 ms Mid Calf: 0.2 cm; Reflux: 0 ms Distal Calf: 0.1 cm; Reflux: 0 ms DUPLICATED MEDIAL GREAT SAPHENOUS VEIN: Diameter: None imaged Reflux: NA DUPLICATED LATERAL GREAT SAPHENOUS VEIN: Diameter: 0.4 cm Reflux: 0 ms SMALL SAPHENOUS VEIN: Saphenopopliteal Junction: 0.2 cm; Reflux: 0 ms Proximal: 0.1 cm; Reflux: 0 ms Distal: 0.2 cm; Reflux: 0 ms VEIN OF GIACOMINI: Size: 0.3 cm Reflux: 0 ms PERFORATORS: Location: Mid calf Size: 0.1 cm Reflux: 0 ms Location: Distal thigh Size: 0.2 cm Reflux: 0 ms Location: At knee Size: 0.2 cm Reflux: 0 ms Location: Distal calf Size: 0.1 cm Reflux: 0 ms VARICOSITIES: Location: None Imaged Size: NA Reflux: NA US/US venous insuf bilat IMPRESSION: 1. Right: There is segmental reflux in the right great saphenous vein at the saphenofemoral junction and calf. 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 There is a patent right small saphenous vein without reflux. 2. Left: There is a patent left great saphenous vein without evidence of reflux. 3. There are multiple varicosities in the right lower extremity with reflux as described above.
== END 2023-08-28 12:54 | disposition home or self-care (01) ==
LOC: HO.US 12:53
PROVIDERS: PCP Nurse Practitioner Family; Visit Provider Nurse Practitioner Family
DX: I83.93 Asymptomatic varicose veins of bilateral lower extremities (principal)
CPT/HCPCS: 93970

== ENCOUNTER → 2023-09-22 09:45 | Outpatient (BNV) | payer BC, SELFPAY | PROVIDERS: PCP Nurse Practitioner Family; Visit Provider Radiology Diagnostic Radiology | DX: Z12.31 Encounter for screening mammogram for malignant neoplasm of breast (principal) | CPT/HCPCS: 77063; 77067 ==

== ENCOUNTER 2023-09-22 09:46 | Outpatient (REF) | payer BC, SELFPAY ==
--- NOTE | ~2023-09-22 | MM_ITS ---
EXAMINATION: BONE DENSITOMETRY CLINICAL INDICATION: Asymptomatic menopausal state. COMPARISON: Baseline BD dated 09/18/2021. TECHNIQUE: Using a [employer] DXA System (software version: 13.1) manufactured by [employer], dual-energy x-ray absorptiometry was performed of the lumbar spine and left hip. The images are of good technical quality. Summary results are attached. FINDINGS: LEFT FEMUR, NECK: Current: BMD 0.959 g/cm2, Z-score 0.2, T-score -0.6, normal. Baseline: BMD 0.889 g/cm2. LEFT FEMUR, TOTAL: Current: BMD 0.921 g/cm2, Z-score -0.2, T-score -0.7, normal, 1.0% increase from baseline (<5% change is not significant). Baseline: BMD 0.912 g/cm2. AP SPINE L1-L4 (excluding L3): The data of L1-L4 has been changed to exclude the L3 vertebral body, because degenerative sclerosis at this level may cause overestimation of lumbar spine density. Current: BMD 1.079 g/cm2, Z-score -0.3, T-score -0.8, normal, 2.5% decrease from baseline (<5% change is not significant). Baseline: BMD 1.107 g/cm2. IDENTIFIED RISK FACTORS: Menopause, osteoporosis, current smoker, history of fracture (adult). HISTORY OF FRACTURE: Femur. Other. MEDICATIONS: Calcium supplements or multivitamin, vitamin D. MM/XR DEXA axial skeleton IMPRESSION: 1. DIAGNOSIS: Normal bone density based on the lowest T-score value of -0.8 in the lumbar spine applying World Health Organization criteria. 2. 10-YEAR FRACTURE RISK PREDICTION, FRAX: According to the guidelines, FRAX calculation should only be performed on patients in the osteopenia bone density category. Therefore, FRAX was not performed on this patient. 3. Treatment Recommendations: NOF guidelines recommend consideration for treatment in postmenopausal women and men age 50 and older presenting with the following: -A hip or vertebral (clinical or morphometric) fracture. -T-score less than or equal to -2.5 at the femoral neck or spine after appropriate evaluation to exclude secondary causes. -Low bone mass at the hip or spine and a 10-year fracture probability by FRAX of greater than or equal to 3% for hip fracture or greater than or equal to 20% for major osteoporotic fracture based on the [place] adapted WHO algorithm. 4. Other Recommendations: All treatment decisions require clinical judgment and consideration of individual patient factors, including patient preferences, comorbidities, previous drug use, risk factors not captured in the FRAX model (e.g. frailty, falls, vitamin D deficiency, increased bone turnover, interval significant decline in bone density) and possible under or overestimation of fracture risk by FRAX. FUTURE SCAN RECOMMENDATION: People with diagnosed cases of osteoporosis or at high risk for fracture should have regular bone mineral density tests. For patients eligible for Medicare, routine testing is allowed once every 2 years. The testing frequency can be increased to one year for patients who have rapidly progressing disease, those who are receiving or discontinuing medical therapy to restore bone mass, or have additional risk factors.
== END 2023-09-22 09:47 | disposition home or self-care (01) ==
LOC: HO.MAMMO 09:46
PROVIDERS: PCP Nurse Practitioner Family; Visit Provider Nurse Practitioner Family
DX: Z12.31 Encounter for screening mammogram for malignant neoplasm of breast (principal); Z13.820 Encounter for screening for osteoporosis; Z78.0 Asymptomatic menopausal state; M85.80 Other specified disorders of bone density and structure, unspecified site
CPT/HCPCS: 77063; 77067; 77080

== ENCOUNTER 2023-11-05 09:16 | Outpatient (AMB) | payer BC, SELFPAY ==
[2023-11-05 09:17] VITALS: BMI 31.9
--- NOTE | 2023-11-05 09:17 | MHC.OFFVIS ---
Vital Signs 11/05/23 09:17 Height 5 ft 10 in Weight 222 lb BMI 31.9 Intake Visit Reasons: VACCINES SOLUTIONS SPECIALIST VV Intake Note: VACCINES SOLUTIONS SPECIALIST/ VV bilateral LE. Right LE worse than the Left LE, does have some aching over the veins. Pt does have rope like VV on the right leg. States she has had them for 30 yrs but worse over time. Accompanied by: Self / Same As Patient Allergies No Known Allergies Allergy (Verified 11/05/23 09:22) HPI HPI VACCINES SOLUTIONS SPECIALIST VV: Details: Very pleasant 68-year-old female patient presents for painful varicose veins. Complaints include pain over varicosities, swelling of lower extremities, cramping, fatigue, and heaviness of the lower extremities. It has been affecting there daily activities including walking. It is noted more so in right leg. In particular large cluster of varicosities in the right thigh and calf Patient denies any previous venous surgery or injections. Patient denies any history of DVT/ PE. Patient denies any history of phlebitis. Trial of compression includes - [id number] They now present for vascular evaluation regarding their varicose veins. In addition she has a history smoking. She reports that she quit approximately 3 weeks ago. Prior to that she was smoking about a pack a week. In addition she does have a sister with a prior history of an abdominal aortic aneurysm. [facility] Medical History Osteoarthritis of feet, bilateral Osteoarthritis of left hip Shotty lymph nodes Metacarpal bone fracture Fracture of superior pubic ramus Closed fracture of inferior pubic ramus Anxiety Samuel's disease Hyperlipidemia Osteopenia Personal history of nicotine dependence Surgical History History of colonoscopy History of total right knee replacement (~2017) History of total left knee replacement (~2017) History of surgery on arm (~2019) History of right hip replacement (~2019) Family History Mother Bone cancer Brother Leukemia Afib Sister Aortic aneurysm Father Kidney disease Social History (Updated 11/05/23 @ 09:24 by DANNA Benjamin) Household Members: Significant Other Housing: House Are you a primary child care teacher to a significant other at home: No Do you presently have visiting nurse or other home services: No 75 years or older and lives alone: No Alcohol intake: current Alcohol intake frequency: holidays/special occasions only Alcohol type: beer Patient Tobacco Use Status: Former Tobacco user Tobacco use type: Cigarette Cigarettes Per Day: 5 Years Smoked: 25 Non Cigarette Tobacco use Quit date or years: 10/2023 e-Cigarette/Vaping Use: Never Used Second Hand Smoke Exposure: Yes service: No Current occupational status: employed (Part-time Job) and retired 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[email or web address] Sexual orientation: Straight/Heterosexual Gender identity: Female Cognitive needs: No Hearing needs: No Vision needs: Yes (Glasses) Review of Systems Const Reports as per HPI ENT Reports no additional complaints Card Denies chest pain, Denies chest pain at rest and Denies chest pain with activity Resp Denies chest congestion and Denies cough GI Reports no additional complaints Musc Details: pain over varicosities, aching of lower extremities, swelling, cramping, heaviness and tiredness, itching Denies abnormal gait Skin/Breast Reports pruritus and Denies wounds Neuro Reports no additional complaints and Denies abnormal gait Psych Denies no additional complaints Physical Exam Vital Signs: BMI result Body Mass Index 31.9 Const General: cooperative, healthy appearing and comfortable Orientation/consciousness: oriented to person, oriented to place and oriented to time Neck Carotids: no bruits Chest Chest palpation & inspection: normal inspection of the chest and normal palpation of entire chest wall Resp Effort & Inspection: normal respiratory effort and able to speak in complete sentences Cardio Rate: regular rate Heart sounds: S1 normal heart sound present and S2 normal heart sound present Peripheral pulses: Peripheral pulses 2+ throughout GI Inspection: Yes normal to inspection Skin Other: +2 edema, large rope-like varicosities greater than 4 mm right thigh and calf CEAP Classification C4 - skin color changes Ep - Etiology Primary As - superficial veins P - reflux General skin exam: dry skin Neuro General: oriented to person, oriented to place and oriented to time Extrem Right lower extremity: full ROM, normal capillary refill and edema Left lower extremity: full ROM, normal capillary refill and edema Psych Mental Status: mental status grossly normal Results Reviewed Results Reviewed: Brief summary of venous insufficiency testing is as follows: right great saphenous vein: Positive at calf and ankle only right small saphenous vein: negative right accessory vein: none present left great saphenous vein: negative left small saphenous vein: negative left accessory vein: none present Please note there is no evidence of any venous aneurysms or significant tortuosity Assessment & Plan Assessment & Plan (1) Varicose veins of right lower extremity with inflammation: Code(s): I83.11 - Varicose veins of right lower extremity with inflammation Category: Medical Plan: This patient has varicose veins with inflammation. They continue to be a source of discomfort for the patient. The patient has tried conservative treatment with compression, leg elevation and exercise program for over 3 months time. They have been compliant with all treatment. This has provided minimal relief for the patient. I do not anticipate this course of treatment will alter the underlying etiology. The patient has been scheduled for lower extremity venous treatment inclusive of --- right leg microphlebectomy. Risks, benefits, and complications of this procedure has been discussed in detail with the patient including but not limited to bleeding, infection, and the development of a DVT. The patient has demonstrated a clear understanding and has consented. We will schedule the patient as soon as possible. Thank you for allowing us to participate in this patient's care. If there are any questions or concerns please do not hesitate to contact us. (2) Encounter for abdominal aortic aneurysm (AAA) screening: Code(s): Z13.6 - Encounter for screening for cardiovascular disorders Category: Medical Plan: Patient does have a prior history smoking over 100 cigarettes. In addition she does have family history of abdominal aortic aneurysm. We will get a screening ultrasound regarding this. She will follow up with us after testing. Thank you for allowing us to assist in Orders: Orders US abdominal aortic aneurysm 1 Week Z13.6 - Encounter for screening for cardiovascular disorders Coding Level of Care Code New Pt Level 4 (81076) Diagnoses Varicose veins of right lower extremity with inflammation I83.11 Encounter for abdominal aortic aneurysm (AAA) screening Z13.6
== END 2023-11-05 09:44 | disposition home or self-care (01) ==
PROVIDERS: PCP Nurse Practitioner Family; Visit Provider Surgery Vascular Surgery
DX: I83.11 Varicose veins of right lower extremity with inflammation (principal); Z13.6 Encounter for screening for cardiovascular disorders
CPT/HCPCS: 99204

== ENCOUNTER → 2023-11-05 09:16 | Outpatient (BNVA) | payer BC, SELFPAY | PROVIDERS: PCP Nurse Practitioner Family; Visit Provider Surgery Vascular Surgery ==

== ENCOUNTER 2023-11-13 10:27 | Outpatient (REF) | payer BC, SELFPAY ==
--- NOTE | ~2023-11-13 | US_ITS ---
EXAMINATION: US RETROPERITONEAL LIMITED (AORTA) CLINICAL INFORMATION: Screening for AAA. History of nicotine dependence. COMPARISON: CT chest 01/30/2023. TECHNIQUE: Samaniego-scale, color Doppler and spectral Doppler evaluation of the abdominal aorta. FINDINGS: Aorta contains mild atherosclerotic plaque without aneurysm. The measurements of the aorta in maximum AP and transverse dimensions respectively are as follows: Proximal: 2.6 x 2.7 cm. Mid: 2.1 x 2.1 cm. Distal: 2.0 x 2.2 cm. PSV: 88 cm/sec The measurements of the common iliac arteries in maximum dimensions are as follows: Right: AP: 1.3 cm. TRV: 1.4 cm. Left: AP: 1.4 cm. TRV: 1.3 cm. US/US aorta IMPRESSION: No evidence of abdominal aortic aneurysm. Electronically signed by: Martin Hernández MD 11/18/2023 12:16 AM EDT
== END 2023-11-13 10:28 | disposition home or self-care (01) ==
LOC: HO.HMGCX 10:27
PROVIDERS: PCP Nurse Practitioner Family; Visit Provider Surgery Vascular Surgery
DX: Z13.6 Encounter for screening for cardiovascular disorders (principal)
CPT/HCPCS: 76775

== ENCOUNTER 2023-11-16 05:32 | Day surgery (SDC) | payer BC, SELFPAY ==
--- NOTE | 2023-11-12 14:30 | HO.ANESPROP2 ---
Documented by User: Alexa Mckenzie NP 11/12/23 14:31 HPI - Anesthesia Eval Consult details Narrative: 68yo F for Right Micro Phlebectomy PMFSH Active Problems Active Problems: All Active Problems Encounter for abdominal aortic aneurysm (AAA) screening (Acute) Varicose veins of right lower extremity with inflammation (Acute) Varicose veins of both lower extremities (Acute) Annual physical exam (Acute) Generalized anxiety disorder with panic attacks (Acute) CKD (chronic kidney disease) stage 3, GFR 30-59 ml/min (Acute) Screening mammogram for breast cancer (Acute) Samuel's disease (Acute) Hyperlipidemia (Acute) Osteopenia (Acute) Obesity (BMI 30-39.9) (Acute) Elevated fasting glucose (Acute) Personal history of nicotine dependence (Acute) Post-menopausal (Acute) Low vitamin D level (Acute) Past Medical History Medical History Osteoarthritis of feet, bilateral Osteoarthritis of left hip Shotty lymph nodes Metacarpal bone fracture Fracture of superior pubic ramus Closed fracture of inferior pubic ramus Anxiety Samuel's disease Hyperlipidemia Osteopenia Personal history of nicotine dependence Family History Family History Mother Bone cancer Brother Leukemia Afib Sister Aortic aneurysm Father Kidney disease Family history of problems with anesthesia: No Surgical History Surgical History History of colonoscopy History of total right knee replacement (~2017) History of total left knee replacement (~2017) History of surgery on arm (~2019) History of right hip replacement (~2019) History of Problems with Anesthesia: No Social History Social History Household Members: Significant Other Housing: House Are you a primary out of school hours care worker to a significant other at home: No Do you presently have visiting nurse or other home services: No Alcohol intake: current Alcohol intake frequency: holidays/special occasions only Alcohol type: beer Patient Tobacco Use Status: Former Tobacco user Tobacco use type: Cigarette Cigarettes Per Day: 5 Years Smoked: 25 e-Cigarette/Vaping Use: Never Used Patient Interested in Nicotine Replacement: No Patient Given Instructions on How to Stop Smoking: No Second Hand Smoke Exposure: No Use of substances other than those prescribed or required for medical reasons: No Have you been hit, kicked, punched, or otherwise hurt by someone within the past year? 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[employer] Sexual orientation: Straight/Heterosexual Gender identity: Female Cognitive needs: No Hearing needs: No Vision needs: Yes (Glasses) Meds Allergies Allergy/AdvReac Type Severity Reaction Status Date / Time No Known Allergies Allergy Verified 11/05/23 09:22 Exam Pertinent Lab Results Pertinent Lab Results: Laboratory Tests 08/24/23 09:37 Sodium 142 Potassium 4.2 Chloride 107 Carbon Dioxide 25 BUN 17 H Creatinine 0.88 Assessment and Plan Assessment Anesthesia Assessment: Chart Reviewed Final Anesthetic Review Family History of Problems with Anesthesia: No History of Problems with Anesthesia: No Documented by User: Margie Angel MD 11/16/23 08:14 [facility] Past Medical History Medical History Osteoarthritis of feet, bilateral Osteoarthritis of left hip Shotty lymph nodes Metacarpal bone fracture Fracture of superior pubic ramus Closed fracture of inferior pubic ramus Anxiety Samuel's disease Hyperlipidemia Osteopenia Personal history of nicotine dependence Family History Family History Mother Bone cancer Brother Leukemia Afib Sister Aortic aneurysm Father Kidney disease Surgical History Surgical History History of colonoscopy History of total right knee replacement (~2017) History of total left knee replacement (~2017) History of surgery on arm (~2019) History of right hip replacement (~2019) Social History Social History Household Members: Significant Other Housing: House Are you a primary out of school hours care worker to a significant other at home: No Do you presently have visiting nurse or other home services: No Alcohol intake: current Alcohol intake frequency: holidays/special occasions only Alcohol type: beer Patient Tobacco Use Status: Former Tobacco user Tobacco use type: Cigarette Cigarettes Per Day: 5 Years Smoked: 25 e-Cigarette/Vaping Use: Never Used Patient Interested in Nicotine Replacement: No Patient Given Instructions on How to Stop Smoking: No Second Hand Smoke Exposure: No Use of substances other than those prescribed or required for medical reasons: No Have you been hit, kicked, punched, or otherwise hurt by someone within the past year? If so, by whom?: No Are you DNR?: No Advance Directives: No Advance Directives Information Provided: Yes Advance Directives on File: No Recently lost weight without trying: No Eating poorly because of decreased appetite: No Nutrition Risks: No Nutritional Risk Patient : No : No Poor oral hygiene: No service: No Current occupational status: employed (Part-time Job) and retired Current occupation: [employer] Sexual orientation: Straight/Heterosexual Gender identity: Female Cognitive needs: No Hearing needs: No Vision needs: Yes (Glasses) Meds Allergies Allergy/AdvReac Type Severity Reaction Status Date / Time No Known Allergies Allergy Verified 11/05/23 09:22 Exam Airway Mallampati Class: III TM Dist: <=3cm Neck ROM: Full Heart: rrr Lungs: cta Assessment and Plan Assessment Anesthesia Assessment: Anesthesia Plan Discussed Final Anesthetic Review NPO: Yes ASA Class: III Final Preanesthetic Review: No Changes in Pt Med Stat, Meds/Allgs Chart Reviewed, Consent Obtained/Reviewed and Anes Risks/Benef Reviewed Patient Risk: Intermediate Procedure Risk: Low Anesthetic Plan Anesthetic Plan: GA Disposition: Standard PACU
[2023-11-16] VITALS (7 sets, daily range): BP systolic 124–153; BP diastolic 65–85; PULSE 65–73; RESP 16–17; TEMP 36.2–37; O2SAT 94–98; BMI 31.9
[2023-11-16] MEDS: Lactated Ringers 1,000 ML 100 ML IVCONT (06:35)
--- NOTE | 2023-11-16 07:26 | MHC.SHP ---
Pre-Procedural Eval Section A - 24 Hr Update-Section A only Date of Service: 11/16/23 The patient is an INPATIENT: No Changes since office visit: Yes Patient answered all questions The patient has been examined within 24 hours of the surgical procedure. The History & Physical has been completed within 30 days and I have reviewed it.: Yes Section B - Complete if H&P > 30 days Chief Complaint: Varicose veins of right lower extremity Allergies: Allergies Allergy/AdvReac Type Severity Reaction Status Date / Time No Known Allergies Allergy Verified 11/05/23 09:22 Plan I have reviewed the history and physical and performed a pertinent physical examination on my patient. No changes have occurred unless specified. Time Spent With Patient Time: Total time managing care of this patient today ____ minutes.
--- NOTE | 2023-11-16 09:10 | W.PM.OPN ---
Operative Note Operative Note Date of Service: 11/16/23 Narrative: Operative note by [facility] Preoperative diagnosis:Right leg varicose veins with inflammation Postoperative diagnosis: same Procedure: right leg microphlebectomy (25) Surgeon:Neo Bae M.D. Sprinkling System Irrigator: none Anesthesia: general Specimens: 1 Drains: none Estimated blood loss: 100 mL Indications: 68-year-old female with extremely large right lower extremity varicosities now presents for microphlebectomy. The patient has signed the informed consent after reviewing risks, complications, benefits, and alternatives previously discussed with the patient. The patient was given the opportunity to ask any additional questions or voice any concerns. All questions were answered to the patient's satisfaction. Procedure in detail: Varicose veins were marked in the standing position on the right leg and the patient was then placed in the supine position. The right lower extremity was prepared and draped to allow knee flexion in the sterile field. The patient had large superficial varicose veins with significant symptoms of pain. It was therefore determined to perform microphlebectomies of the clusters of varicose veins. The patient had bulging varicose veins which were previously marked in the standing position. A small stab incision was made longitudinally directly overlying the varicose vein in the calf and the varicose vein was grasped with a hemostat aided by a vein hook. It was then dissected as far proximally and distally as possible and avulsed. A total of 25 stab incisions were made and the procedure of stab phlebectomies was repeated 25 times. Hemostasis was checked and stab incision sites were closed with steri-strips and sterile dressing was given with gauze and krilex wrap followed by an bebo bandage. There were no complications and blood loss 100 mLl. Post-Op instructions were given and a follow-up appointment was recommended. This note is constructed using voice recognition software. While every effort has been made to ensure accuracy, insurance counsel errors may have been included. Thank you for allowing me to participate in the care of your patient. Yours sincerely, Neo Bae MD, FACS, R.P.V.I.
== END 2023-11-16 10:19 | disposition home or self-care (01) ==
PROVIDERS: PCP Nurse Practitioner Family; Visit Provider Surgery Vascular Surgery
PROC: (CPT 37766; principal; 2023-11-16 07:30)
DX: I83.11 Varicose veins of right lower extremity with inflammation (principal); M79.89 Other specified soft tissue disorders; R25.2 Cramp and spasm; R26.2 Difficulty in walking, not elsewhere classified; M15.9 Polyosteoarthritis, unspecified; M85.80 Other specified disorders of bone density and structure, unspecified site; E78.5 Hyperlipidemia, unspecified; E06.3 Autoimmune thyroiditis; F17.210 Nicotine dependence, cigarettes, uncomplicated; Z98.890 Other specified postprocedural states
CPT/HCPCS: 37766; 88304; J0690; J1100; J2250; J2405; J2704; J2795; J3010

== ENCOUNTER → 2023-11-16 05:32 | Outpatient (BNV) | payer BC, SELFPAY | PROVIDERS: PCP Nurse Practitioner Family; Visit Provider Surgery Vascular Surgery | DX: I83.811 Varicose veins of right lower extremity with pain (principal) | CPT/HCPCS: 37766 ==

== ENCOUNTER 2023-12-02 08:06 | Outpatient (REF) | payer BC, SELFPAY ==
[2023-12-02 10:28] LABS: Alanine Aminotransferase 13 U/L (0-31); Alkaline Phosphatase 86 U/L (39-117); Anion Gap 12 (12-20); Aspartate Amino Transferase 14 U/L (5-31); Bilirubin Total 0.4 mg/dL (0.0-1.0); Blood Urea Nitrogen 18 mg/dL (9-16); Calcium 9.2 mg/dL (8.4-10.2); Carbon Dioxide 28 mmol/L (22-29); Chloride 108 mmol/L (96-108); Cholesterol 198 mg/dL (<200); Estimated Glomerular Filt Rate > 60; Glucose Fasting 100 mg/dL (60-99); HDL Cholesterol 45 mg/dL (>40); LDL Cholesterol Calculated 117 mg/dL (<100); Potassium 5.1 mmol/L (3.3-5.1); Sodium 143 mmol/L (135-145); Total Protein 6.9 g/dL (6.5-8.0); Triglycerides 182 mg/dL (<150)
== END 2023-12-02 08:07 | disposition home or self-care (01) ==
LOC: HO.HMGCLDS 08:06
PROVIDERS: PCP Nurse Practitioner Family; Visit Provider Nurse Practitioner Family
DX: E06.3 Autoimmune thyroiditis (principal); E78.2 Mixed hyperlipidemia; R73.01 Impaired fasting glucose; R79.89 Other specified abnormal findings of blood chemistry
CPT/HCPCS: 36415; 80053; 80061

== ENCOUNTER 2023-12-03 10:07 | Outpatient (AMB) | payer BC, SELFPAY ==
--- NOTE | 2023-12-03 10:12 | A.OFFVIS_ITS ---
Intake Visit Reasons: 2 week follow up micro Intake Note: 2 week follow up Right LE Micro in OR 11/16/23, pt states leg is healing nicely Accompanied by: Self / Same As Patient Allergies No Known Allergies Allergy (Verified 12/03/23 10:13) HPI HPI 2 week follow up micro: Details: Very pleasant 68-year-old female status post operative right leg microphlebecto my. Reports that overall leg has significantly improved. Pain and discomfort have improved. She now presents for routine follow-up [facility] Medical History (Updated 12/03/23 @ 13:43 by Neo Bae MD) Osteoarthritis of feet, bilateral Osteoarthritis of left hip Shotty lymph nodes Metacarpal bone fracture Fracture of superior pubic ramus Closed fracture of inferior pubic ramus Anxiety Samuel's disease Hyperlipidemia Osteopenia Personal history of nicotine dependence Surgical History (Updated 12/03/23 @ 10:14 by DANNA Benjamin) H/O varicose vein stripping (11/16/23) History of colonoscopy History of total right knee replacement (~2017) History of total left knee replacement (~2017) History of surgery on arm (~2019) History of right hip replacement (~2019) Family History Mother Bone cancer Brother Leukemia Afib Sister Aortic aneurysm Father Kidney disease Social History Household Members: Significant Other Housing: House Are you a primary menagerie caretaker to a significant other at home: No Do you presently have visiting nurse or other home services: No 75 years or older and lives alone: No Alcohol intake: current Alcohol intake frequency: holidays/special occasions only Alcohol type: beer Patient Tobacco Use Status: Former Tobacco user Tobacco use type: Cigarette Cigarettes Per Day: 5 Years Smoked: 25 e-Cigarette/Vaping Use: Never Used Second Hand Smoke Exposure: No service: No Current occupational status: employed (Part-time Job) and retired 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[id number] Sexual orientation: Straight/Heterosexual Gender identity: Female Cognitive needs: No Hearing needs: No Vision needs: Yes (Glasses) Review of Systems Const All systems reviewed & are unremarkable except as noted in HPI and below Reports no additional complaints ENT Reports Normal hearing present Card Denies chest pain, Denies chest pain at rest, Denies chest pain with activity and Denies pedal edema Resp Denies cough GI Denies abdominal pain Musc Denies abnormal gait, Denies muscle cramps and Denies radiating pain into limb Skin/Breast Denies skin ulcer and Denies wounds Neuro Reports Normal hearing present and Denies abnormal gait Psych Reports no additional complaints Physical Exam Const General: cooperative, healthy appearing and comfortable Orientation/consciousness: oriented to person, oriented to place and oriented to time HEENT Head: Yes normal to inspection Neck Neck: Yes normal visual inspection Carotids: no bruits Chest Chest palpation & inspection: normal inspection of the chest Resp Effort & Inspection: normal respiratory effort and able to speak in complete sentences Auscultation: clear to auscultation bilaterally, no crackles, no rales, no rhonchi and no wheezes Cardio Rate: regular rate Rhythm: regular rhythm Heart sounds: S1 normal heart sound present and S2 normal heart sound present Bruits: no carotid bruits Peripheral pulses: Peripheral pulses 2+ throughout GI Inspection: Yes normal to inspection Skin Other: Right leg incisions well healed Wounds: no wounds Hair: normal Neuro General: oriented to person, oriented to place and oriented to time Cranial nerves: Yes CN's II-XII intact bilaterally and Yes Normal hearing present Cognition (Neuro): normal cognition Motor exam (neuro): 5/5 motor strength present throughout Extrem Other: venous exam: No significant superficial varicosities or spider telangiectasias, minimal edema General: No clubbing, No cyanosis and No edema Psych Appearance: grossly normal Mental Status: mental status grossly normal Speech and movement: Normal speech and movement present Assessment & Plan Assessment & Plan (1) Varicose veins of right lower extremity with inflammation: Comment: 11/16/2023 operative right leg microphlebectomy Code(s): I83.11 - Varicose veins of right lower extremity with inflammation Category: Medical Plan: The patient has done extremely well with all venous treatments. Patient's may often experience postprocedure phlebitic episodes and I have discussed with the patient use of warm compresses and NSAIDS if tolerated for pain discomfort. In addition, I have discussed continued conservative measures including use of compression, leg elevation, and exercise. The patient was also given an information sheet regarding appropriate use of compression stockings and future purchases. Thank you for allowing us to care for your patient with venous dise ase. Coding Level of Care Code Est Pt Level 4 (47232) Diagnoses Varicose veins of right lower extremity with inflammation I83.11
== END 2023-12-03 11:10 | disposition home or self-care (01) ==
PROVIDERS: PCP Nurse Practitioner Family; Visit Provider Surgery Vascular Surgery
DX: I83.11 Varicose veins of right lower extremity with inflammation (principal)
CPT/HCPCS: 99214

== ENCOUNTER → 2023-12-03 10:07 | Outpatient (BNVA) | payer BC, SELFPAY | PROVIDERS: PCP Nurse Practitioner Family; Visit Provider Surgery Vascular Surgery ==

== ENCOUNTER 2023-12-07 08:16 | Outpatient (AMB) | payer BC, SELFPAY ==
--- NOTE | 2023-12-07 08:33 | A.OFFPC_ITS ---
Vital Signs 12/07/23 08:36 Height 5 ft 10 in Weight 219 lb BMI 31.4 BP 132/72 Blood Pressure Location Lt brachial Position Sitting Respiration 14 Pulse 86 Pulse Source Pulse Oximeter Temp 98.1 F Temp Source Oral Pulse Oximetry (%) 98 Oxygen Delivery Method Room Air Intake Visit Reasons: 3-4 months 30 min fu complex conditions Intake Note: follow up Allergies No Known Allergies Allergy (Verified 12/07/23 08:51) Medication List - Last Reconciled 12/07/23 by Sobeida Gonzalez, VISION SPECIALIST- blood pressure monitor As directed calcium carbonate (Oyster Shell Calcium) 500 mg PO DAILY 90 days cholecalciferol (vitamin D3) 25 mcg PO DAILY levothyroxine 175 mcg PO DAILY lorazepam 0.5 mg PO DAILY PRN paroxetine HCl 40 mg PO DAILY pravastatin 20 mg PO BEDTIME Tobacco use date assessed: 08/24/23 Dental Screening Dental Screen Date: 08/24/23 HPI HPI Comments History of Present Illness Details 68-year-old female with TONIA with panic a ttacks, Samuel's disease, hyperlipidemia, osteopenia, obesity, impaired fasting glucose, hypertension, former smoker quit in 2021 (20 pack year history), osteoarthritis of multiple joints, vitamin-D deficiency, 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, CAD multilevel osteoarthritis of the spine, mild mediastinal lymphadenopathy with pretracheal lymph node measuring 0.9 cm, severe diverticulosis s/p 11/16/2023 operative right leg microphlebectomy Health maintenance Colonoscopy 05/04/2023 severe diverticulosis of the sigmoid colon luminal narrowing, moderate internal hemorrhoids, moderate diverticulosis of descending colon repeat in 5 years if polyps are adematous, repeat in 10 years if benign Mammogram 09/22/23 WNL DEXA 09/18/2021 positive for osteopenia femoral T-score -1.1, 09/22/2023 1. DIAGNOSIS: Normal bone density based on the lowest T-score value of-0.8 in the lumbar spine applying World Health Organization criteria Lung cancer screening January 20232020 AAA screen 11/12/23 Normal Flu today 12/07/2023 Specialists Pulmonology [facility] Here today for routine fu labs 12/02/23 stable/wnl improved lipids LDL still > 100 At last office visit, Pravastatin increased,now w/ improved panel, LDL remains > 100 however better Vascular referral & imaging; 11/16/2023 operative right leg microphlebectomy. Most recent note 12/03/23 reviewed. FU PRN Has been walking daily. No pain. No swelling. Mood is good. Using ativan sparingly. Denies sob, chest pain. Tolerant and compliant of all meds. Denies thyroid sx. New c/o Left arm/shoulder pain, s/p surgery in [place], years ago. Had injection in L shoulder about 3-4 years ago. Lifting even light weight in certain positions can cause the pain, cracks and has limited ROM. Recommend her to f/u with [facility] ortho to see about injection. If referral is needed, please send me a portal message and i will place this order. Has URI sx of runny nose, nasal congestion and PND that started a few days ago. Using nick-seltzer + relief. Exam: awake alert oriented TM intact, mild congestion bilat R>L Sinus nontender Pharynx WNL No carotid bruit RRR LS CTAB BLE w/o edema, + PP, healing incision sites s/p microphlebectomy RLE w/o infection LROM Left shoulder, neurovasc intact Mood and affect appropriate Plan Cont all meds without change Call ortho to schedule appt for Left shoulder Monitor for signs of sinus infection, RTO if they develop flu vaccine today RTO 4 months, labs 1 week before, routine fu, sooner PRN This note is constructed using voice recognition software. While every effort has been made to ensure accuracy in community health program representative, still errors may have been included Sometimes, these errors may affect the content or meaning of the given sentence . Total time spent caring for the patient today was 42 minutes. This includes time spent before the visit reviewing the chart, time spent during the visit, and time spent after the visit on documentation [facility] Medical History (Updated 12/07/23 @ 15:34 by ASHLIE Arvizu-) Osteoarthritis of feet, bilateral Osteoarthritis of left hip Shotty lymph nodes Metacarpal bone fracture Fracture of superior pubic ramus Closed fracture of inferior pubic ramus Anxiety Samuel's disease Hyperlipidemia Osteopenia Personal history of nicotine dependence Surgical History (Updated 12/03/23 @ 10:14 by DANNA Benjamin) H/O varicose vein stripping (11/16/23) History of colonoscopy History of total right knee replacement (~2017) History of total left knee replacement (~2017) History of surgery on arm (~2019) History of right hip replacement (~2019) Family History Mother Bone cancer Brother Leukemia Afib Sister Aortic aneurysm Father Kidney disease Social History Household Members: Significant Other Housing: House Are you a primary family day care worker to a significant other at home: No Do you presently have visiting nurse or other home services: No 75 years or older and lives alone: No Alcohol intake: current Alcohol intake frequency: holidays/special occasions only Alcohol type: beer Patient Tobacco Use Status: Former Tobacco user Tobacco use type: Cigarette Cigarettes Per Day: 5 Years Smoked: 25 e-Cigarette/Vaping Use: Never Used Second Hand Smoke Exposure: No service: No Current occupational status: employed (Part-time Job) and retired Current occupation: [employer] Sexual orientation: Straight/Heterosexual Gender identity: Female Cognitive needs: No Hearing needs: No Vision needs: Yes (Glasses) Questionnaire PHQ-9 Over the last 2 weeks, how often have you been bothered by any of the following problems? 1. Little interest or pleasure in doing things: not at all 2. Feeling down, depressed, or hopeless: not at all 3. Trouble falling or staying asleep, or sleeping too much: not at all 4. Feeling tired or having little energy: not at all 5. Poor appetite or overeating: not at all 6. Feeling bad about yourself - or that you are a failure or have let yourself or your family down: not at all 7. Trouble concentrating on things, such as reading the newspaper or watching television: not at all 8. Moving or speaking so slowly that other people could have noticed. Or the opposite - being so fidgety or restless that you have been moving around a lot more than usual: not at all 9. Thoughts that you would be better off or of hurting yourself in some way: not at all Total score: 0 12599 - PHQ-9 Billing: Yes Source: Developed by Drs. Keith Brown, Bereket Woodruff and colleagues, with an educational nina from [employer]. Thrive Questionnaire Date Thrive assessed: 05/08/23 AUDIT C Alcohol Use Questionnaire (AUDIT-C) 2. How many drinks containing alcohol do you have on a typical day when you are drinking?: 3 or 4 3. How often do you have six or more drinks on one occasion?: Less than monthly Total Score: 2 TONIA-7 AMB Questionnaire TONIA-7 Date TONIA - 7 assessed: 12/07/23 Feeling nervous, anxious, or on edge: 0 = Not at all Not being able to stop or control worryin = Not at all Worrying too much about different things: 0 = Not at all Trouble relaxin = Not at all Being so restless that it is hard to sit still: 0 = Not at all Becoming easily annoyed or irritable: 0 = Not at all Feeling afraid as if something awful might happen: 0 = Not at all Total TONIA-7 score (0-4 normal; 5-9 mild; 10-14 moderate; 15-21 severe): 0 Source: Developed by Drs. Keith Brown, Mayte Jin, Bereket Carter and colleagues, with an educational nina from [employer]. TONIA-7 Assessment Billing TONIA-7 Assessment Tool: TONIA-7 Assessment 46382 Physical exam (Primary Care) Vital Signs: Last Vital Signs Temp 98.1 F 12/07/23 08:36 Pulse 86 12/07/23 08:36 Resp 14 12/07/23 08:36 BP 132/72 12/07/23 08:36 Pulse Ox 98 12/07/23 08:36 Oxygen Delivery Method Room Air 12/07/23 08:36 BMI result Body Mass Index 31.4 Tobacco/Smoking Status: Tobacco use Status Tobacco use date assessed 08/24/23 12/07/23 08:35 Patient Tobacco Use Status Former Tobacco user 12/07/23 08:35 Tobacco use type Cigarette 12/07/23 08:35 e-Cigarette/Vaping Use Never Used 12/07/23 08:35 PHQ-9: PHQ-9 Score PHQ-9: Total score 0 12/07/23 09:14 Thrive Assessment: Date of Thrive Assessment Date Thrive assessed 05/08/23 12/07/23 08:35 Office Procedures Flu Questionnaire Does the patient have a severe egg allergy?: No Does the patient have severe life threatening allergies?: No Does the patient have a fever or illness today?: No Has the patient ever had Guillain-[place] Syndrome?: No Has the patient ever had any past reaction to a flu shot?: No Results AMB Hemoglobin A1c AMB Hemoglobin A1c 5.3 % Last Edit by Tru Andrews MA on 12/07/23 08:51 Immunizations Fluarix Triv [id number] (PF) 45 mcg (15 mcg x 3)/0.5 mL IM syringe Performing Provider: RUBENS Arvizu Performing Location: [facility] Administered by: Kalie López RN on 12/07/23 09:38 Dose Route Admin Location Dispensed Lot Number Expiration Date NDC Tip Cementer 0.5 mL IM Right Deltoid 0.5 mL [id number] 08/29/24 12737-109-49 [employer] VIS Given Date VIS Provided VIS Publication Date 12/07/23 Single Vaccine 20 Eligibility Eligibility Date Funding Source Not [facility] Eligible 12/07/23 Private Results Reviewed Results Reviewed: Laboratory Last Values Hgb A1c (Clinic) 5.3 % (4.0-6.0) 12/07/23 08:49 Coding Level of Care Code Est Pt Level 5 (79304) Complex EM visit Add On G2211 Diagnoses Elevated fasting glucose R73.01 Samuel's disease E06.3 Mixed hyperlipidemia E78.2 Hyperlipidemia type: mixed hyperlipidemia Low vitamin D level R79.89 Obesity (BMI 30-39.9) E66.9 Osteopenia of neck of left femur M85.852 Laterality: left Osteopenia location: femoral neck Stage 3a chronic kidney disease N18.31 Chronic kidney disease stage 3 subtype: stage 3a (GFR 45-59) Generalized anxiety disorder with panic attacks F41.1; F41.0 Varicose veins of right lower extremity with inflammation I83.11 Asymptomatic varicose veins of both lower extremities I83.93 Varicose vein complication: asymptomatic Left shoulder pain M25.512 Viral URI J06.9 Additional Codes TONIA-7 Assessment Billing - TONIA-7 Assessment Tool: TONIA-7 Assessment 34508 ([id number]) Assessment & Plan Assessment & Plan (1) Elevated fasting glucose: Code(s): R73.01 - Impaired fasting glucose Category: Medical Plan: . (2) Samuel's disease: Comment: Currently on levothyroxine 175 mcg daily. Code(s): E06.3 - Autoimmune thyroiditis Category: Medical Plan: . (3) Hyperlipidemia: Code(s): E78.5 - Hyperlipidemia, unspecified Category: Medical Qualifiers: Hyperlipidemia type: mixed hyperlipidemia Qualified Code(s): E78.2 - Mixed hyperlipidemia Plan: . (4) Low vitamin D level: Comment: . Currently taking vitamin D3 25 mcg p.o. daily. Code(s): R79.89 - Other specified abnormal findings of blood chemistry Category: Medical Plan: . (5) Obesity (BMI 30-39.9): Code(s): E66.9 - Obesity, unspecified Category: Medical (6) Osteopenia: Comment: (Bone Dexa Femoral T-score: -1.1 - 09/18/21) DEXA UTD 2023 Code(s): M85.80 - Other specified disorders of bone density and structure, unspecified site Category: Medical Qualifiers: Laterality: left Osteopenia location: femoral neck Qualified Code(s): M85.852 - Other specified disorders of bone density and structure, left thigh Plan: . (7) CKD (chronic kidney disease) stage 3, GFR 30-59 ml/min: Comment: 05/08/2023 labs show a normal electrolytes, BUN 15, creatinine 0.97, EGFR 57,urine creatinine microalbumin within normal limits Code(s): N18.30 - Chronic kidney disease, stage 3 unspecified Category: Medical Qualifiers: Chronic kidney disease stage 3 subtype: stage 3a (GFR 45-59) Qualified Code(s): N18.31 - Chronic kidney disease, stage 3a Plan: . (8) Generalized anxiety disorder with panic attacks: Comment: Currently managed on lorazepam p.r.n. paroxetine 40 mg p.o. daily. Continue Code(s): F41.1 - Generalized anxiety disorder; F41.0 - Panic disorder [episodic paroxysmal anxiety] Category: Medical Plan: . (9) Varicose veins of right lower extremity with inflammation: Comment: 11/16/2023 operative right leg microphlebectomy Code(s): I83.11 - Varicose veins of right lower extremity with inflammation Category: Medical Plan: . (10) Varicose veins of both lower extremities: Comment: 08/2023 US/ venous insuf bilat IMPRESSION: 1. Right: There is segmental reflux in the right great saphenous vein at the saphenofemoral junction and calf. 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 There is a patent right small saphenous vein without reflux. 2. Left: There is a patent left great saphenous vein without evidence of reflux. 3. There are multiple varicosities in the right lower extremity with reflux as described above. referred to [facility] Vascular Code(s): I83.93 - Asymptomatic varicose veins of bilateral lower extremities Category: Medical Qualifiers: Varicose vein complication: asymptomatic Qualified Code(s): I83.93 - Asymptomatic varicose veins of bilateral lower extremities Plan: . (11) Left shoulder pain: Code(s): M25.512 - Pain in left shoulder (12) Viral URI: Code(s): J06.9 - Acute upper respiratory infection, unspecified Plan . Orders: Orders AMB Hemoglobin A1c Today R73.01 - Impaired fasting glucose Comprehensive [place]. Panel Fast 04/02/24 E06.3 - Autoimmune thyroiditis, E66.9 - Obesity, unspecified, E78.2 - Mixed hyperlipidemia, M85.852 - Other specified disorders of bone density and structure, left thigh, N18.31 - Chronic kidney disease, stage 3a, R73.01 - Impaired fasting glucose, R79.89 - Other specified abnormal findings of blood chemistry Hemoglobin A1c 04/02/24 E06.3 - Autoimmune thyroiditis, E66.9 - Obesity, unspecified, E78.2 - Mixed hyperlipidemia, M85.852 - Other specified disorders of bone density and structure, left thigh, N18.31 - Chronic kidney disease, stage 3a, R73.01 - Impaired fasting glucose, R79.89 - Other specified abnormal findings of blood chemistry Lipid Panel 04/02/24 E06.3 - Autoimmune thyroiditis, E66.9 - Obesity, unspecified, E78.2 - Mixed hyperlipidemia, M85.852 - Other specified disorders of bone density and structure, left thigh, N18.31 - Chronic kidney disease, stage 3a, R73.01 - Impaired fasting glucose, R79.89 - Other specified abnormal findings of blood chemistry Vitamin D 25-OH Total 04/02/24 E06.3 - Autoimmune thyroiditis, E66.9 - Obesity, unspecified, E78.2 - Mixed hyperlipidemia, M85.852 - Other specified disorders of bone density and structure, left thigh, N18.31 - Chronic kidney disease, stag e 3a, R73.01 - Impaired fasting glucose, R79.89 - Other specified abnormal findings of blood chemistry Microalbumin, Random (w Creat) 04/02/24 E06.3 - Autoimmune thyroiditis, E66.9 - Obesity, unspecified, E78.2 - Mixed hyperlipidemia, M85.852 - Other specified disorders of bone density and structure, left thigh, N18.31 - Chronic kidney disease, stage 3a, R73.01 - Impaired fasting glucose, R79.89 - Other specified abnormal findings of blood chemistry Influenza [id number] Immunization Today Z23 - Encounter for immunization TSH reflex Free T4 04/02/24 E06.3 - Autoimmune thyroiditis, E66.9 - Obesity, unspecified, E78.2 - Mixed hyperlipidemia, M85.852 - Other specified disorders of bone density and structure, left thigh, N18.31 - Chronic kidney disease, stage 3a, R73.01 - Impaired fasting glucose, R79.89 - Other specified abnormal findings of blood chemistry Medications: Refilled lorazepam 0.5 mg PO DAILY PRN 30 tabs 0RF anxiety
[2023-12-07 08:36] VITALS: BP 132/72; PULSE 86; RESP 14; TEMP 36.7; O2SAT 98; BMI 31.4
== END 2023-12-07 09:20 | disposition home or self-care (01) ==
PROVIDERS: PCP Nurse Practitioner Family; Visit Provider Nurse Practitioner Family
DX: R73.01 Impaired fasting glucose (principal); N18.31 Chronic kidney disease, stage 3a; E66.811 Obesity, class 1; Z68.31 Body mass index [BMI] 31.0-31.9, adult; E06.3 Autoimmune thyroiditis; E78.2 Mixed hyperlipidemia; M85.852 Other specified disorders of bone density and structure, left thigh; F41.1 Generalized anxiety disorder; F41.0 Panic disorder [episodic paroxysmal anxiety]; I83.93 Asymptomatic varicose veins of bilateral lower extremities; M25.512 Pain in left shoulder; Z23 Encounter for immunization

== ENCOUNTER → 2023-12-07 08:16 | Outpatient (BNVA) | payer BC, SELFPAY | PROVIDERS: PCP Nurse Practitioner Family; Visit Provider Nurse Practitioner Family | DX: R73.01 Impaired fasting glucose (principal); E06.3 Autoimmune thyroiditis; E78.2 Mixed hyperlipidemia; E55.9 Vitamin D deficiency, unspecified; E66.9 Obesity, unspecified; Z23 Encounter for immunization; M85.852 Other specified disorders of bone density and structure, left thigh; N18.31 Chronic kidney disease, stage 3a; F41.1 Generalized anxiety disorder; F41.0 Panic disorder [episodic paroxysmal anxiety]; I83.11 Varicose veins of right lower extremity with inflammation; I83.92 Asymptomatic varicose veins of left lower extremity; M25.512 Pain in left shoulder; J06.9 Acute upper respiratory infection, unspecified; Z79.899 Other long term (current) drug therapy | CPT/HCPCS: 83036; 90471; 90656; 96127 ==

== ENCOUNTER 2024-03-14 13:17 | Outpatient (REF) | payer BC, SELFPAY ==
[2024-03-14 19:10] LABS: Influenza A PCR NEGATIVE (Negative); Influenza B PCR NEGATIVE (Negative); Resp Syncy Virus RNA Qual PCR NEGATIVE (Negative); SARS COV2 PCR INHOUSE NEGATIVE (Negative)
== END 2024-03-14 13:18 | disposition home or self-care (01) ==
LOC: HO.LNP 13:17
PROVIDERS: PCP Nurse Practitioner Family; Visit Provider Nurse Practitioner Family
DX: R68.89 Other general symptoms and signs (principal); J35.8 Other chronic diseases of tonsils and adenoids; R09.89 Other specified symptoms and signs involving the circulatory and respiratory systems
CPT/HCPCS: 0241U

== ENCOUNTER 2024-03-14 13:17 | Outpatient (AMB) | payer BC, SELFPAY ==
--- NOTE | 2024-03-14 13:34 | AM.OFFWIN_ITS ---
Intake Vital Signs 03/14/24 13:38 Height 5 ft 10 in Weight 220 lb 8 oz BMI 31.6 BP 138/78 Blood Pressure Location Lt brachial Position Sitting Respiration 13 Pulse 84 Pulse Source Pulse Oximeter Temp 97.7 F Temp Source Oral Pulse Oximetry (%) 98 Oxygen Delivery Method Room Air Intake Visit Reasons: Sinus Infection Intake Note: Patient complaining of stuffy nose, hardly no voice, headache, and coughing up phlegm x 1 week Patient Tobacco Use Status: Former Tobacco user Allergies No Known Allergies Allergy (Verified 03/14/24 14:05) Medication List - Last Reconciled 03/14/24 by Sobeida Gonzalez, [facility]- blood pressure monitor As directed calcium carbonate (Oyster Shell Calcium) 500 mg PO DAILY 90 days cholecalciferol (vitamin D3) 25 mcg PO DAILY levothyroxine 175 mcg PO DAILY lorazepam 0.5 mg PO DAILY PRN paroxetine HCl 40 mg PO DAILY pravastatin 20 mg PO BEDTIME Do you need a note to return to daycare/school/sports/work: No HPI HPI Comments History of Present Illness Details History of Present Illness The patient is a 68-year-old female presenting with symptoms of an upper respiratory tract infection. She began experiencing a stuffy nose, loss of voice, headache, and cough with sputum approximately one week ago. The patient states her symptoms began with a sore throat and headache. On Thursday, she lost her voice, which has slightly improved but was much worse initially. She reports her cough is productive with green phlegm. She has been experiencing earache, initially in both ears, which then localized to one ear. To alleviate her sore throat, the patient has used throat lozenges and saltwater gargles. Her sore throat has improved with these interventions. t. The patient has been caring for her grandson who recently sneezed in her face, raising concerns about possible exposure to viral infections. 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 She has not reported any breathing difficulties. No hospitalizations noted. Exam: Awake alert NAD Sclera and conjunctiva clear bilat Nares with mucoid dc bilat, turbinates edematous, no sinus tenderness with palpation bilat TM intact with congestion bilat MMM, pharynx + PND, tonsil stone removed from L tonsil , voice hoarse RRR LS CTAB, productive cough w/o distress Results - Tests planned: Influenza, COVID-19, an d RSV swabs. Discussion Notes During the consultation, I discussed the possibility of the patient's symptoms being caused by a viral or bacterial infection. The importance of diagnostic testing for influenza, COVID-19, and RSV was emphasized, due to recent exposure to her grandson who displayed similar symptoms. I explained the potential for prescribing antivirals or antibiotics depending on the test outcomes and provided an overview of Paxlovid as a treatment option for COVID-19, highlighting that usage is not mandatory. The patient was informed that test results would be available by the next day, and I committed to contacting her with the results to determine the subsequent management plan. If symptoms worsen, the patient was directed to seek further medical attention. Plan - Obtain nasal swabs for influenza, COVI D-19, and RSV testing. - If diagnostic tests reveal a bacterial infection, antibiotics will be prescribed. - If results indicate viral infections s uch as influenza or COVID-19, antiviral medications may be considered. - Patient counseling regarding symptom m anagement, including home remedies and [id number] medications for symptomatic relief. Patient was informed and verbally consented to the use of an ambient scribe for clinic note documentation during this visit. Patient Instructions - Continue symptomatic relief measures s uch as throat lozenges, tea with lemon and honey, and saltwater gargles. - Expect a follow-up call by tomorrow fo r test results and subsequent treatment steps. - Maintain good hydration and rest. - Avoid close contact with others until the results are available. - Seek medical attention if symptoms wor sen, particularly for respiratory distress or high fever. Total time spent caring for the patient today was 30 minutes. This includes time spent before the visit reviewing the chart, time spent during the visit, and time spent after the visit on documentation This note is constructed using voice recognition software. While every effort has been made to ensure accuracy in auto apprentice mechanic, still errors may have been included Sometimes, these errors may affect the content or meaning of the given sentence . [facility] Medical History (Updated 12/22/23 @ 09:04 by Coty Lechuga PA-C) Osteoarthritis of feet, bilateral Osteoarthritis of left hip Shotty lymph nodes Metacarpal bone fracture Fracture of superior pubic ramus Closed fracture of inferior pubic ramus Anxiety Samuel's disease Hyperlipidemia Osteopenia Personal history of nicotine dependence Surgical History (Updated 12/03/23 @ 10:14 by DANNA Benjamin) H/O varicose vein stripping (11/16/23) History of colonoscopy History of total right knee replacement (~2017) History of total left knee replacement (~2017) History of surgery on arm (~2019) History of right hip replacement (~2019) Family History Mother Bone cancer Brother Leukemia Afib Sister Aortic aneurysm Father Kidney disease Social History Household Members: Significant Other Housing: House Are you a primary career development counselor to a significant other at home: No Do you presently have visiting nurse or other home services: No 75 years or older and lives alone: No Alcohol intake: current Alcohol intake frequency: holidays/special occasions only Alcohol type: beer Patient Tobacco Use Status: Former Tobacco user Tobacco use type: Cigarette Cigarettes Per Day: 5 Years Smoked: 25 e-Cigarette/Vaping Use: Never Used Second Hand Smoke Exposure: No service: No Current occupational status: employed (Part-time Job) and retired 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 [employer] Sexual orientation: Straight/Heterosexual Gender identity: Female Cognitive needs: No Hearing needs: No Vision needs: Yes (Glasses) Physical Exam Vital Signs: Last Vital Signs Temp 97.7 F 03/14/24 13:38 Pulse 84 03/14/24 13:38 Resp 13 03/14/24 13:38 BP 138/78 03/14/24 13:38 Pulse Ox 98 03/14/24 13:38 Oxygen Delivery Method Room Air 03/14/24 13:38 BMI result Body Mass Index 31.6 Assessment & Plan Assessment & Plan (1) Flu-like symptoms: Code(s): R68.89 - Other general symptoms and signs (2) Tonsil stone: Code(s): J35.8 - Other chronic diseases of tonsils and adenoids Plan . Orders: Orders SARS-CoV2/FLU/RSV Today R09.89 - Other specified symptoms and signs involving the circulatory and respiratory systems Coding Level of Care Code Est Pt Level 4 (28273) Diagnoses Flu-like symptoms R68.89 Tonsil stone J35.8
[2024-03-14 13:38] VITALS: BP 138/78; PULSE 84; RESP 13; TEMP 36.5; O2SAT 98; BMI 31.6
== END 2024-03-14 14:18 | disposition home or self-care (01) ==
PROVIDERS: PCP Nurse Practitioner Family; Visit Provider Nurse Practitioner Family
DX: R68.89 Other general symptoms and signs (principal); J35.8 Other chronic diseases of tonsils and adenoids

== ENCOUNTER 2024-04-05 09:08 | Outpatient (REF) | payer BC, SELFPAY ==
[2024-04-05 10:57] LABS: Estimated Average Glucose 103 mg/dL; Hemoglobin A1C 125.2396 umol/L; Hemoglobin A1c % 5.2 % (<6.0); Total Hemoglobin (HGBA1C) 3782.3559 umol/L
[2024-04-05 11:13] LABS: Creatinine Urine 175.78 mg/dL; Microalbum/Creatinine Ratio Ur 5.6 ug/mg cr (<30)
[2024-04-05 11:34] LABS: Alanine Aminotransferase 20 U/L (0-31); Alkaline Phosphatase 83 U/L (39-117); Anion Gap 17 (12-20); Aspartate Amino Transferase 20 U/L (5-31); Bilirubin Total 0.6 mg/dL (0.0-1.0); Blood Urea Nitrogen 17 mg/dL (9-16); Calcium 8.8 mg/dL (8.4-10.2); Carbon Dioxide 29 mmol/L (22-29); Chloride 103 mmol/L (96-108); Cholesterol 194 mg/dL (<200); Estimated Glomerular Filt Rate > 60; Glucose Fasting 85 mg/dL (60-99); HDL Cholesterol 53 mg/dL (>40); LDL Cholesterol Calculated 121 mg/dL (<100); Potassium 4.5 mmol/L (3.3-5.1); Sodium 144 mmol/L (135-145); Total Protein 7.4 g/dL (6.5-8.0); Triglycerides 104 mg/dL (<150)
[2024-04-05 11:35] LABS: Vitamin D 25-OH Total 32.2 ng/mL (>30)
== END 2024-04-05 09:09 | disposition home or self-care (01) ==
LOC: HO.HMGCLDS 09:08
PROVIDERS: PCP Nurse Practitioner Family; Visit Provider Nurse Practitioner Family
DX: N18.31 Chronic kidney disease, stage 3a (principal); E06.3 Autoimmune thyroiditis; E78.2 Mixed hyperlipidemia; M85.852 Other specified disorders of bone density and structure, left thigh; E66.9 Obesity, unspecified; R73.01 Impaired fasting glucose; R79.89 Other specified abnormal findings of blood chemistry
CPT/HCPCS: 36415; 80053; 80061; 82043; 82306; 82570; 83036; 84443

== ENCOUNTER → 2024-04-08 08:43 | Outpatient (BNVA) | payer BC, SELFPAY | PROVIDERS: PCP Nurse Practitioner Family; Visit Provider Nurse Practitioner Family | DX: F41.1 Generalized anxiety disorder (principal); F41.0 Panic disorder [episodic paroxysmal anxiety]; G89.29 Other chronic pain; M25.512 Pain in left shoulder; N18.31 Chronic kidney disease, stage 3a; R73.01 Impaired fasting glucose; E06.3 Autoimmune thyroiditis; E78.2 Mixed hyperlipidemia; E55.9 Vitamin D deficiency, unspecified; M85.852 Other specified disorders of bone density and structure, left thigh; R07.9 Chest pain, unspecified; L98.9 Disorder of the skin and subcutaneous tissue, unspecified; E66.9 Obesity, unspecified; Z68.32 Body mass index [BMI] 32.0-32.9, adult; Z79.899 Other long term (current) drug therapy; Z87.891 Personal history of nicotine dependence | CPT/HCPCS: 96127 ==

== ENCOUNTER → 2024-04-19 07:58 | Outpatient (REF) | payer BC, SELFPAY ==
--- NOTE | 2024-04-19 08:01 | CA_ITS ---
Acquisition Time: 2024-04-19 08:30:09 Total Exercise Time: 00:05:01 Test Indications: CP Medications: LEVOTHYROXINE LORAZAPAM PAROXETINE PRAVASTATIN Protocol: JAVIER Max HR: 155 BPM 101% of Pred: 153 BPM Max BP: 148/70 mmHG Max Work Load: 7.0 METS Exercise Stress Test with exercise 5 mins 1 sec of Javier Protocol, achieving 85% MPHR, with reports of mild SOB, no chest discomfort, with isolate PACs, PVCs, with normotensive reponse to exercise. Without EKG changes meeting criteria for ischemia. At 4 mins of exercise, pt's HR cara into the 150s, lasting couple secs and returning into the 120s again, asymptomatic with this. Recommend holter. In recovery, breathing returned to baseline. Test reviewed with Dr. Ansari. Referred By: Sobeida Gonzalez Electronically Signed By: Dilip Raymond
== END ==
LOC: HO.CARD 07:58
PROVIDERS: PCP Nurse Practitioner Family; Visit Provider Nurse Practitioner Family
DX: R07.9 Chest pain, unspecified (principal)
CPT/HCPCS: 93017

== ENCOUNTER → 2024-04-19 08:01 | Outpatient (BNV) | payer BC, SELFPAY | PROVIDERS: PCP Nurse Practitioner Family | DX: R06.02 Shortness of breath (principal); R07.9 Chest pain, unspecified; I49.1 Atrial premature depolarization; I49.3 Ventricular premature depolarization | CPT/HCPCS: 93016; 93018 ==

== ENCOUNTER → 2024-04-21 07:36 | Outpatient (BNV) | payer BC, SELFPAY | PROVIDERS: PCP Nurse Practitioner Family; Visit Provider Radiology Diagnostic Radiology | DX: M75.112 Incomplete rotator cuff tear or rupture of left shoulder, not specified as traumatic (principal); M75.32 Calcific tendinitis of left shoulder; M19.012 Primary osteoarthritis, left shoulder; S43.432A Superior glenoid labrum lesion of left shoulder, initial encounter | CPT/HCPCS: 73221 ==

== ENCOUNTER 2024-04-21 07:47 | Outpatient (REF) | payer BC, SELFPAY ==
--- NOTE | ~2024-04-21 | MR_ITS ---
CLINICAL HISTORY: M25.512 - Pain in left shoulder MR left shoulder without gadolinium Comparison: None Findings: No acute fracture or pathologic bone lesion. Moderate acromioclavicular and glenohumeral joint osteoarthritis. Type II acromion. No joint effusion. Mild T2 signal elevation diffusely throughout the supraspinatus and infraspinatus tendons at the humeral insertion site extending to the musculotendinous junction, indicating tendinopathy. Superimposed low-grade bursal surface and intrasubstance tears of the mid supraspinatus tendon at the humeral insertion site. Subscapularis, infraspinatus, and teres minor tendons are intact. No tears of the long head of biceps tendon. Diffuse degenerative fraying of the glenoid labrum. Superimposed undercutting of the anterosuperior, and posterosuperior labrum. IMPRESSION: 1. Supraspinatus and infraspinatus tendinopathy. Superimposed low-grade tearing of the supraspinatus tendon. 2. Acromioclavicular and glenohumeral joint osteoarthritis. 3. Glenoid labral tearing. This document has been electronically signed by: Nadia Kelly MD on 04/21/2024 13:34:06
== END 2024-04-21 07:48 | disposition home or self-care (01) ==
LOC: HO.MRI 07:47
PROVIDERS: PCP Nurse Practitioner Family; Visit Provider Nurse Practitioner Family
DX: M25.512 Pain in left shoulder (principal)
CPT/HCPCS: 73221

== ENCOUNTER 2024-04-25 09:21 | Outpatient (AMB) | payer BC, SELFPAY ==
--- NOTE | 2024-04-25 09:49 | MHC.OFFVIS ---
Vital Signs 04/25/24 09:55 Height 5 ft 10 in Weight 223 lb BMI 32.0 Handedness Right Intake Visit Reasons: New Prob - Left shoulder pain, MRI 04/21/24 Intake Note: Delisa is a 68 year old right hand dominant female who presents today for a evolution of her left shoulder pain, MRI done on 04/21/24. Hx of of a fall when she was walking her dog on 04/23/24 when she fell on her left side. Patient reports ongoing pain for about 6 - 7 months. Hx of cortisone injection about 3 years ago which gave her relief which took place in [place]. She states that her pain is on the lateral aspect of the shoulder and it moves down to her bicep and radiates up to her neck. Patient has tried Tylenol, heat and a rolling gel with mild relief. Allergies No Known Allergies Allergy (Verified 04/25/24 09:53) HPI HPI New Prob - Left shoulder pain, MRI 04/21/24: Details: Ms. Salgado is a 68-year-old right-hand dominant female who presents to the office today for evaluation of left shoulder pain. She reports shoulder pain for the past 6-7 months. She denies any injury or trauma. Of note the patient does have a prior history of what seems like a left elbow ORIF performed in [place] 3 years ago. She has residual neural deficits in the median nerve distribution. She has had a left shoulder injection a roughly 3 years ago by an orthopedist in [place] that greatly helped her. [facility] Medical History (Updated 04/25/24 @ 10:08 by Marie Lozada PA-C) Osteoarthritis of feet, bilateral Osteoarthritis of left hip Shotty lymph nodes Metacarpal bone fracture Fracture of superior pubic ramus Closed fracture of inferior pubic ramus Anxiety Samuel's disease Hyperlipidemia Osteopenia Personal history of nicotine dependence Surgical History (Updated 12/03/23 @ 10:14 by DANNA Benjamin) H/O varicose vein stripping (11/16/23) History of colonoscopy History of total right knee replacement (~2017) History of total left knee replacement (~2017) History of surgery on arm (~2019) History of right hip replacement (~2019) Family History Mother Bone cancer Brother Leukemia Afib Sister Aortic aneurysm Father Kidney disease Social History (Updated 04/25/24 @ 09:54 by Melonie Castillo) Household Members: Significant Other Housing: House Are you a primary personal care aide to a significant other at home: No Do you presently have visiting nurse or other home services: No 75 years or older and lives alone: No Alcohol intake: current Alcohol intake frequency: holidays/special occasions only Alcohol type: beer Patient Tobacco Use Status: Former Tobacco user Tobacco use type: Cigarette Cigarettes Per Day: 5 Years Smoked: 25 e-Cigarette/Vaping Use: Never Used Second Hand Smoke Exposure: No service: No Current occupational status: employed (Part-time Job) and retired 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 Sexual orientation: Straight/Heterosexual Gender identity: Female Cognitive needs: No Hearing needs: No Vision needs: Yes (Glasses) Review of Systems Const All systems reviewed & are unremarkable except as noted in HPI and below Physical Exam Vital Signs: BMI result Body Mass Index 32.0 Const General: cooperative, healthy appearing and no acute distress Resp Effort & Inspection: normal respiratory effort and able to speak in complete sentences Cardio Rate: regular rate Peripheral pulses: Peripheral pulses 2+ throughout Skin Lesions: no lesions Rashes: no rashes Extrem Other: Left shoulder: Normal to inspection. No ecchymosis, erythema, or edema. Full shoulder ROM in all planes with pain with the last 45 degrees of forward flexion and abduction. Negative cross-body reach. Negative empty can. Negative drop arm. NVI. Office Procedures AMB Joint Injection/Aspiration Joint Injection/Aspiration Primary Site: left shoulder Prep: site was prepped using aseptic technique, ethochloride spray was applied and injection warnings given Injected: 80 mg of, DepoMedrol, with 8 mL of (2% plain lidocaine) and in the subcromial space Approach Used: posterolateral Procedure: The patient tolerated the procedure well, but had some pain with the injection and there was some relief with the local anesthesia Coding 61014 - Large joint Procedure code (CPT) selection complete Assessment & Plan Assessment & Plan (1) Painful arc syndrome of left shoulder: Code(s): M75.102 - Unspecified rotator cuff tear or rupture of left shoulder, not specified as traumatic Category: Medical Plan Ms. Salgado is a 68-year-old right-hand dominant female who presents to the office today for evaluation of left shoulder pain. She reports shoulder pain for the past 6-7 months. She denies any injury or trauma. Of note the patient does have a prior history of what seems like a left elbow ORIF performed in [place] 3 years ago. She has residual neural deficits in the median nerve distribution. She has had a left shoulder injection a roughly 3 years ago by an orthopedist in [place] that greatly helped her. The patient was offered a cortisone injection in the left shoulder with 80 mg of DepoMedrol. The patient was explained the risks, benefits, and alternatives to receiving this injection. After receiving consent for the injection, the patient had the procedure done while in the office today. The patient tolerated the procedure well with no complications. Follow-up will be p.r.n., or sooner if needed, X-rays of the left shoulder which were obtained while in the office today and were reviewed by me, Marie Lozada PA-C, revealed no acute fracture dislocation. AC joint arthritis. Orders: Orders XR shoulder LT min 2V Today M25.519 - Pain in unspecified shoulder Coding Level of Care Code New Pt Level 3 (41552) Diagnoses Painful arc syndrome of left shoulder M75.102 CPT Codes Coding - 59199 Large joint: 28041 - Large joint ([id number])
[2024-04-25 09:55] VITALS: BMI 32.0
== END 2024-04-25 10:54 | disposition home or self-care (01) ==
PROVIDERS: PCP Nurse Practitioner Family; Visit Provider Physician Assistant
DX: M75.102 Unspecified rotator cuff tear or rupture of left shoulder, not specified as traumatic (principal)
CPT/HCPCS: 20610; 99213

== ENCOUNTER → 2024-04-25 09:24 | Outpatient (BNV) | payer BC, SELFPAY | PROVIDERS: Visit Provider Radiology Diagnostic Radiology | DX: M25.512 Pain in left shoulder (principal) | CPT/HCPCS: 73030 ==

== ENCOUNTER 2024-04-25 12:54 | Outpatient (REF) | payer BC, SELFPAY ==
--- NOTE | ~2024-04-25 | XR_ITS ---
EXAMINATION: XR SHOULDER, LEFT CLINICAL INFORMATION: M25.519 - Pain in unspecified shoulder COMPARISON: None available. TECHNIQUE: AP external rotation, Grashey, scapular Y, and axillary views of the left shoulder. FINDINGS: Sclerosis of the articular surface of the acromioclavicular joint. No acute cortical disruption or malalignment. No lytic or blastic lesions. XR/XR shoulder LT min 2V IMPRESSION: Osteoarthrosis, mild to moderate left acromioclavicular joint. Electronically signed by: Devon Corbin MD 04/26/2024 10:37 AM SCOTT
== END 2024-04-25 12:55 | disposition home or self-care (01) ==
LOC: HO.HOSX 12:54
PROVIDERS: Visit Provider Physician Assistant
DX: M75.102 Unspecified rotator cuff tear or rupture of left shoulder, not specified as traumatic (principal)
CPT/HCPCS: 20610; 73030; J1010; J2003

== ENCOUNTER 2024-04-27 13:02 | Outpatient (AMB) | payer BC, SELFPAY ==
--- NOTE | 2024-04-27 12:59 | A.OFFPC_ITS ---
Intake Visit Reasons: review test results Intake Note: lab review Allergies No Known Allergies Allergy (Verified 04/27/24 15:28) Medication List - Last Reconciled 04/27/24 by JONY ArvizuP- blood pressure monitor As directed calcium carbonate (Oyster Shell Calcium) 500 mg PO DAILY 90 days cholecalciferol (vitamin D3) 25 mcg PO DAILY levothyroxine 175 mcg PO DAILY lorazepam 0.5 mg PO DAILY PRN paroxetine HCl 10 mg PO DAILY paroxetine HCl 40 mg PO DAILY pravastatin 20 mg PO BEDTIME Tobacco use date assessed: 04/08/24 Dental Screening Dental Screen Date: 04/08/24 HPI HPI Comments History of Present Illness Details History of Present Illness - The patient is a 68-year-old female pr esenting with follow-up on stress test results. -Details reviewed w her today - Due to the elevated heart rate, a Arauz er monitor is recommended to explore any potential underlying issues. - The patient is encouraged to perform p hysical activity to assist in monitoring heart rate changes. L shoulder MRI - saw [facility], consult note reviewed - Received a cortisone injection with mosher bsequent improvement in symptoms. - No need for surgical intervention at t his time. Assessment and Plan 1. Elevated Heart Rate During Stress Varsha t: The stress test indicated a transient elevation of the heart rate, reaching 150 bpm, without presenting symptoms like chest pain. The test findings were non-concerning but necessitated further assessment through a Holter monitor to evaluate the patient?s cardiac rhythm further. The patient should engage in moderate exercise while wearing the monitor to provide valuable data. 2. Shoulder pain L: The patient's should er inflammation has improved following a cortisone injection, with no immediate surgical requirements. Symptom relief is noted, and the patient is advised to continue regular activities, monitoring for any exacerbation of symptoms. Telehealth Attestation This visit was conducted via phone, and all provided information has been transcribed accurately based on patient communication. The patient has been explained that this is an interactive (audio/video) telehealth encounter and what that consists of. The patient understands and wishes to proceed. CUPS platform was used. Total time spent caring for the patient today was 15 minutes. This includes time spent before the visit reviewing the chart, time spent during the visit, and time spent after the visit on documentation, reviewing laboratory results, diagnostic imaging, medications, performing a medically necessary evaluation, counseling on diagnoses, care coordination, ordering appropriate tests, ordering appropriate medications, review of tests performed by other providers, reporting test results with the patient, communication with other healthcare providers. [facility] Medical History (Updated 04/27/24 @ 15:58 by Sobeida Gonzalez, [facility]) Anxiety Closed fracture of inferior pubic ramus Fracture of superior pubic ramus Samuel's disease Hyperlipidemia Metacarpal bone fracture Osteoarthritis of feet, bilateral Osteoarthritis of left hip Osteopenia Personal history of nicotine dependence Shotty lymph nodes Surgical History (Updated 12/03/23 @ 10:14 by DANNA Benjamin) H/O varicose vein stripping (11/16/23) History of colonoscopy History of right hip replacement (~2018) History of surgery on arm (~2018) History of total left knee replacement (~2016) History of total right knee replacement (~2017) Family History Mother Bone cancer Brother Leukemia Afib Sister Aortic aneurysm Father Kidney disease Social History (Updated 04/25/24 @ 09:54 by Melonie Castillo) Household Members: Significant Other Housing: House Are you a primary women's health care nurse practitioner to a significant other at home: No Do you presently have visiting nurse or other home services: No 75 years or older and lives alone: No Alcohol intake: current Alcohol intake frequency: holidays/special occasions only Alcohol type: beer Patient Tobacco Use Status: Former Tobacco user Tobacco use type: Cigarette Cigarettes Per Day: 5 Years Smoked: 25 e-Cigarette/Vaping Use: Never Used Second Hand Smoke Exposure: No service: No Current occupational status: employed (Part-time Job) and retired 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 Sexual orientation: Straight/Heterosexual Gender identity: Female Cognitive needs: No Hearing needs: No Vision needs: Yes (Glasses) Questionnaire Thrive Questionnaire Date Thrive assessed: 03/14/24 I am a: Patient What is your living situation today?: I have a steady place to live Within the past 12 months, did the food you bought not last and you didn't have the money to get more?: Never true Within the past 12 months, did you worry whether your food would run out before you got money to buy more?: Never true Do you have trouble paying for medicines?: No Do you have trouble getting transportation to medical appointments?: No Do you have trouble paying your heating and electricity bill?: No Do you have trouble taking care of your child, family member or friend?: No Do you have trouble with day-to-day activities such as bathing, preparing meals, shopping, managing finances, etc.?: No Are you currently unemployed and looking for a job?: No Are you interested in more education?: No Please select the resources that you would like help with: None Currently or been in a relationship where the following occur: I choose not to answer THRIVE Score: 0 TONIA-7 AMB Questionnaire TONIA-7 Date TONIA - 7 assessed: 04/08/24 Source: Developed by Drs. Keith Brown, Mayte Jin, Bereket Carter and colleagues, with an educational nina from [employer]. Physical exam (Primary Care) Tobacco/Smoking Status: Tobacco use Status Tobacco use date assessed 04/08/24 04/27/24 13:01 Patient Tobacco Use Status Former Tobacco user 04/27/24 13:01 Tobacco use type Cigarette 04/27/24 13:01 e-Cigarette/Vaping Use Never Used 04/27/24 13:01 Thrive Assessment: Date of Thrive Assessment Date Thrive assessed 03/14/24 04/27/24 13:01 Currently or been in a relationship where the following occur: I choose not to answer Telehealth Telehealth Telehealth Platform: [facility] Location of provider rendering services: practice address Location of patient: address on file Patient Identification confirmed using: Name, : Yes Telehealth method: voice only Patient verbally consented to treatment: Yes Patient verbally consented to billing insurance company: Yes Patient informed of any privacy concerns related to visit: Yes Minutes spent on Phone/Video with Pt.: 8 Results Reviewed Results Reviewed: [address] [address] Cardiology Report Signed Patient: Delisa Salgado MR#: [id number] : 1955 Acct:[id number] Age/Sex: 68 / F ADM Date: 04/19/24 Loc: .[facility] Attending Dr: Sobeida Gonzalez [facility] Ordering Physician: Sobeida Gonzalez Date of Service: 04/19/24 Procedure(s): CA stress test Accession Number(s): [id number] cc: Sobeida Gonzalez~ Acquisition Time: 2024-04-19 08:30:09 Total Exercise Time: 00:05:01 Test Indications: CP Medications: LEVOTHYROXINE LORAZAPAM PAROXETINE PRAVASTATIN Protocol: JAVIER Max HR: 155 BPM 101% of Pred: 153 BPM Max BP: 148/70 mmHG Max Work Load: 7.0 METS Exercise Stress Test with exercise 5 mins 1 sec of Javier Protocol, achieving 85% MPHR, with reports of mild SOB, no chest discomfort, with isolate PACs, PVCs, with normotensive reponse to exercise. Without EKG changes meeting criteria for ischemia. At 4 mins of exercise, pt's HR cara into the 150s, lasting couple secs and returning into the 120s again, asymptomatic with this. Recommend holter. In recovery, breathing returned to baseline. Test reviewed with Dr. Ansari. Referred By: Sobeida Gonzalez Electronically Signed By: Dilip Raymond Dictated By: Dilip Raymond NP Signed By: <Electronically signed by Dilip Raymond in OV> 04/19/24 0936 Coding Level of Care Code Tele Est Pt Level 3 (44803) Complex EM visit Add On G2211 Diagnoses Tachycardia R00.0 Chronic left shoulder pain M25.512; G89.29 Chronicity: chronic Assessment & Plan Assessment & Plan (1) Tachycardia: Code(s): R00.0 - Tachycardia, unspecified Category: Medical (2) Left shoulder pain: Code(s): M25.512 - Pain in left shoulder Category: Medical Qualifiers: Chronicity: chronic Qualified Code(s): M25.512 - Pain in left shoulder; G89.29 - Other chronic pain Plan . Orders: Orders ECG 3 day holter monitor Today R00.0 - Tachycardia, unspecified
== END 2024-04-27 17:05 | disposition home or self-care (01) ==
LOC: HO.HMCFM 13:02
PROVIDERS: PCP Nurse Practitioner Family; Visit Provider Nurse Practitioner Family
DX: R00.0 Tachycardia, unspecified (principal); M25.512 Pain in left shoulder; G89.29 Other chronic pain

== ENCOUNTER → 2024-05-19 09:28 | Outpatient (REF) | payer BC, SELFPAY | LOC: HO.CARD 09:28 | PROVIDERS: PCP Nurse Practitioner Family; Visit Provider Nurse Practitioner Family | DX: R00.0 Tachycardia, unspecified (principal); I49.3 Ventricular premature depolarization | CPT/HCPCS: 93242 ==

== ENCOUNTER → 2024-05-19 09:33 | Outpatient (BNV) | payer BC, SELFPAY | PROVIDERS: PCP Nurse Practitioner Family; Visit Provider Internal Medicine | DX: I47.10 Supraventricular tachycardia, unspecified (principal) | CPT/HCPCS: 93244 ==

== ENCOUNTER 2024-05-23 09:02 | Outpatient (AMB) | payer BC, SELFPAY ==
--- NOTE | 2024-05-23 09:04 | MHC.PC.OV ---
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 Arms Required: No Allergies No Known Allergies Allergy (Verified 05/23/24 09:11) Medication List - Last Reconciled 05/23/24 by Sobeida Gonzalez, DUAL RATE DEALER- blood pressure monitor As directed calcium carbonate (Oyster Shell Calcium) 500 mg PO DAILY 90 days cholecalciferol (vitamin D3) 25 mcg PO DAILY levothyroxine 175 mcg PO DAILY lorazepam 0.5 mg PO DAILY PRN paroxetine HCl 10 mg PO DAILY paroxetine HCl 40 mg PO DAILY pravastatin 20 mg PO BEDTIME Tobacco use date assessed: 05/23/24 Fall risk assessment: 1 Fall in past year (on the ice) Last assessed Fall Risk: 05/23/24 Dental Screening Dental Screen Date: 05/23/24 Did you have a dental visit in the last 12 months?: Yes Did you have a dental problem in the last 6 months where you did not have access to dental care?: No Was dental information given to patient?: Patient has dentist HPI HPI Comments History of Present Illness Details 68-year-old female with TONIA with panic attacks, Samuel's disease, hyperlipidemia, osteopenia, obesity, impaired fasting glucose, hypertension, former smoker quit in 2021 (20 pack year history), osteoarthritis of multiple joints, vitamin-D deficiency, 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 3 sons (Marty OD 04/2024) Health maintenance Colonoscopy 05/04/2023 severe diverticulosis of the sigmoid colon luminal narrowing, moderate internal hemorrhoids, moderate diverticulosis of descending colon repeat in 5 years if polyps are adematous, repeat in 10 years if benign Mammogram 09/22/23 WNL DEXA 09/22/2023 1. DIAGNOSIS: Normal bone density based on the lowest T-score value of-0.8 in the lumbar spine applying World Health Organization criteria Lung cancer screening January 2023 Pap 2020 AAA screen 11/12/23 Normal Flu today 12/07/2023 [facility] History of Present Illness The patient is a 68-year-old female presenting with a follow-up visit for anxiety management and bereavement counseling. - Ongoing management for her generalized anxiety disorder, with previous adjustment of Paxil to 50 mg daily due to inadequate control. Prn use of ativan. - Recent exacerbation of anxiety symptoms following the of her son, Marty, including persistent grief and nightly ruminations, which interfere with her sleep and increase her emotional stress. - History includes heightened concerns regarding personal health and heart functionality, despite past heart evaluations showing primarily stress-related increased heart rate. Holter results pending. - Vivid dreams non-contributory to distressing nightmares but affecting her quality of sleep; consistent with her emotional state. - Alcohol consumption remains unchanged, without misuse for emotional management. Patient reports sustained support network primarily through her partner. - Denies any suicidal ideation due to family responsibilities, especially as a grandmother. L shoulder pain - [facility] [place] [facility] [place] and treatment plan reviewed. mri reviewed. better s/p injection. cont to have some pain. Physical Exam awake alert oriented No carotid bruit RRR LS CTAB BLE w/o edema, + PP, s/p microphlebectomy RLE LROM Left shoulder, neurovasc intact Mood and affect appropriate - tearful when talking about son. Results - Holter monitor: Pending results; no exciting notable instances during monitoring period. - Shoulder MRI: Revealed mild swelling, labral tear, tendinopathy, and arthritis. See below Discussion Notes I discussed with the patient the impact of recent personal loss on her anxiety management and assessed her current use of medications. We reviewed the potential benefit of starting prazosin, originally used for PTSD-related nightmares, to assist with sleep disturbances due to vivid thoughts of her son. I described prazosin's side effects, highlighting headache as a common issue but noted it could improve sleep quality significantly. The patient was informed of the max dosing for Paxil, and given supporting drive to initiate grief counseling for additional support with possible rapid engagement through a navigation team. We agreed on medication continuation, further family history updates, and a detailed follow-up in four weeks, pending Holter monitor results. She appreciated support for her shoulder concerns, confirmed by MRI and managed without surgical intervention presently. Assessment and Plan 1. Generalized Anxiety Disorder: Continue paroxetine 50 mg daily, max dose allowed. Initiate prazosin 1-2mg for sleep disturbance resulting from anxiety, highlight expected headache side effect. Usage of lorazepam only as needed. refill sent today 2. Bereavement: Strongly recommended grief counseling, expedite connectivity via navigation team for early support enrollment. 3. Shoulder Pain L: MRI showed mild issues, observation continues without need for surgical rectification. ffd by [facility] [place] [facility] Patient Instructions - Take paroxetine as prescribed daily. - Begin prazosin at bedtime as directed; monitor for any headaches. - Lorazepam to be used sparingly when anxiety peaks. - Engage with the grief counseling services when contacted by the navigation team for support. - Monitor blood pressure regularly if possible. - return for follow-up in four weeks, or sooner if symptoms change or worsen. Consent Patient was informed and verbally consented to the use of an ambient scribe for clinic note documentation during this visit. Total time spent caring for the patient today was 41 minutes. This includes time spent before the visit reviewing the chart, time spent during the visit, and time spent after the visit on documentation, reviewing laboratory results, diagnostic imaging, medications, performing a medically necessary evaluation, counseling on diagnoses, care coordination, ordering appropriate tests, ordering appropriate medications, review of tests performed by other providers, reporting test results with the patient, communication with other healthcare providers. [facility] Medical History (Updated 05/23/24 @ 09:30 by Sobeida Gonzalez, ASHLIE-SHAHRZAD) Anxiety Closed fracture of inferior pubic ramus Fracture of superior pubic ramus Samuel's disease Hyperlipidemia Metacarpal bone fracture Osteoarthritis of feet, bilateral Osteoarthritis of left hip Osteopenia Personal history of nicotine dependence Shotty lymph nodes Surgical History (Updated 05/13/24 @ 15:38 by ASHLIE Arvizu-SHAHRZAD) H/O varicose vein stripping (11/16/23) History of colonoscopy (~2023) History of right hip replacement (~2018) History of surgery on arm (~2018) History of total left knee replacement (~2016) History of total right knee replacement (~2016) Family History Mother Bone cancer Brother Leukemia Afib Sister Aortic aneurysm Father Kidney disease Son No problems noted. Social History (Updated 04/25/24 @ 09:54 by Melonie Castillo) Household Members: Significant Other Housing: House Are you a primary career development facilitator to a significant other at home: No Do you presently have visiting nurse or other home services: No 75 years or older and lives alone: No Alcohol intake: current Alcohol intake frequency: holidays/special occasions only Alcohol type: beer Patient Tobacco Use Status: Former Tobacco user Tobacco use type: Cigarette Cigarettes Per Day: 5 Years Smoked: 25 e-Cigarette/Vaping Use: Never Used Second Hand Smoke Exposure: No service: No Current occupational status: employed (Part-time Job) and retired 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 1. Little interest or pleasure in doing things: not at all 2. Feeling down, depressed, or hopeless: not at all 3. Trouble falling or staying asleep, or sleeping too much: not at all 4. Feeling tired or having little energy: not at all 5. Poor appetite or overeating: not at all 6. Feeling bad about yourself - or that you are a failure or have let yourself or your family down: not at all 7. Trouble concentrating on things, such as reading the newspaper or watching television: not at all 8. Moving or speaking so slowly that other people could have noticed. Or the opposite - being so fidgety or restless that you have been moving around a lot more than usual: not at all 9. Thoughts that you would be better off or of hurting yourself in some way: not at all Total score: 0 45511 - PHQ-9 Billing: Yes Source: Developed by Drs. Keith Brown, Mayte Jin, Bereket Carter and colleagues, with an educational nina from [employer]. Thrive Questionnaire Date Thrive assessed: 05/23/24 I am a: Patient What is your living situation today?: I have a steady place to live Within the past 12 months, did the food you bought not last and you didn't have the money to get more?: Never true Within the past 12 months, did you worry whether your food would run out before you got money to buy more?: Never true Do you have trouble paying for medicines?: No Do you have trouble getting transportation to medical appointments?: No Do you have trouble paying your heating and electricity bill?: No Do you have trouble taking care of your child, family member or friend?: No Do you have trouble with day-to-day activities such as bathing, preparing meals, shopping, managing finances, etc.?: No Are you currently unemployed and looking for a job?: No Are you interested in more education?: No Please select the resources that you would like help with: None Currently or been in a relationship where the following occur: I choose not to answer THRIVE Score: 0 TONIA-7 AMB Questionnaire TONIA-7 Date TONIA - 7 assessed: 05/23/24 Feeling nervous, anxious, or on edge: 0 = Not at all Not being able to stop or control worryin = Not at all Worrying too much about different things: 0 = Not at all Trouble relaxin = Not at all Being so restless that it is hard to sit still: 0 = Not at all Becoming easily annoyed or irritable: 0 = Not at all Feeling afraid as if something awful might happen: 0 = Not at all Total TONIA-7 score (0-4 normal; 5-9 mild; 10-14 moderate; 15-21 severe): 0 Source: Developed by Drs. Keith Brown, Mayte Jin, Bereket Carter and colleagues, with an educational nina from [employer]. TONIA-7 Assessment Billing TONIA-7 Assessment Tool: TONIA-7 Assessment 81030 Physical exam (Primary Care) Vital Signs: Last Vital Signs Temp 98.2 F 05/23/24 09:08 Pulse 74 05/23/24 09:08 Resp 12 05/23/24 09:08 BP 118/72 05/23/24 09:08 Pulse Ox 99 05/23/24 09:08 Oxygen Delivery Method Room Air 05/23/24 09:08 BMI result Body Mass Index 32.3 Tobacco/Smoking Status: Tobacco use Status Tobacco use date assessed 05/23/24 05/23/24 09:10 Patient Tobacco Use Status Former Tobacco user 05/23/24 09:10 Tobacco use type Cigarette 05/23/24 09:10 e-Cigarette/Vaping Use Never Used 05/23/24 09:10 PHQ-9: PHQ-9 Score PHQ-9: Total score 0 05/23/24 09:10 Thrive Assessment: Date of Thrive Assessment Date Thrive assessed 05/23/24 05/23/24 09:10 Currently or been in a relationship where the following occur: I choose not to answer Results Reviewed Results Reviewed: IMPRESSION: 1. Supraspinatus and infraspinatus tendinopathy. Superimposed low-grade tearing of the supraspinatus tendon. 2. Acromioclavicular and glenohumeral joint osteoarthritis. 3. Glenoid labral tearing. Coding Level of Care Code Est Pt Level 5 (48481) Complex EM visit Add On G2211 Diagnoses Generalized anxiety disorder with panic attacks F41.1; F41.0 Grief at loss of child F43.21; Z63.4 Tachycardia R00.0 Painful arc syndrome of left shoulder M75.102 Additional Codes TONIA-7 Assessment Billing - TONIA-7 Assessment Tool: TONIA-7 Assessment 02443 ([id number]) PHQ-9 - 20149 - PHQ-9 Billing: Yes ([id number]) Assessment & Plan Assessment & Plan (1) Generalized anxiety disorder with panic attacks: Code(s): F41.1 - Generalized anxiety disorder; F41.0 - Panic disorder [episodic paroxysmal anxiety] Category: Medical (2) Grief at loss of child: Code(s): F43.21 - Adjustment disorder with depressed mood; Z63.4 - Disappearance and of family member Category: Medical (3) Tachycardia: Code(s): R00.0 - Tachycardia, unspecified Category: Medical (4) Painful arc syndrome of left shoulder: Comment: MRI: April 2024 IMPRESSION: 1. Supraspinatus and infraspinatus tendinopathy. Superimposed low-grade tearing of the supraspinatus tendon. 2. Acromioclavicular and glenohumeral joint osteoarthritis. 3. Glenoid labral tearing. Code(s): M75.102 - Unspecified rotator cuff tear or rupture of left shoulder, not specified as traumatic Category: Medical Plan . Orders: Referrals Nurse Navigator Referral F43.21 - Adjustment disorder with depressed mood, Z63.4 - Disappearance and of family member Medications: New prazosin 1-2 caps at bedtime as needed insomnia/nightmares 1 mg PO BEDTIME PRN 60 caps 0RF insomnia/nightmares Refilled lorazepam 0.5 mg PO DAILY PRN 30 tabs 0RF anxiety
[2024-05-23 09:08] VITALS: BP 118/72; PULSE 74; RESP 12; TEMP 36.8; O2SAT 99; BMI 32.3
== END 2024-05-23 09:39 | disposition home or self-care (01) ==
LOC: HO.HMCFM 09:02
PROVIDERS: PCP Nurse Practitioner Family; Visit Provider Nurse Practitioner Family
DX: R00.0 Tachycardia, unspecified (principal); F41.1 Generalized anxiety disorder; F41.0 Panic disorder [episodic paroxysmal anxiety]; F43.21 Adjustment disorder with depressed mood; Z63.4 Disappearance and death of family member; M75.102 Unspecified rotator cuff tear or rupture of left shoulder, not specified as traumatic

== ENCOUNTER → 2024-05-23 09:02 | Outpatient (BNVA) | payer BC, SELFPAY | PROVIDERS: PCP Nurse Practitioner Family; Visit Provider Nurse Practitioner Family | DX: F41.1 Generalized anxiety disorder (principal); F41.0 Panic disorder [episodic paroxysmal anxiety]; F43.21 Adjustment disorder with depressed mood; Z63.4 Disappearance and death of family member; R00.0 Tachycardia, unspecified; M75.102 Unspecified rotator cuff tear or rupture of left shoulder, not specified as traumatic; Z79.899 Other long term (current) drug therapy | CPT/HCPCS: 96127 ==

== ENCOUNTER 2024-06-29 09:10 | Outpatient (AMB) | payer BC, SELFPAY ==
--- NOTE | 2024-06-29 09:13 | A.OFFPC_ITS ---
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: No Allergies No Known Allergies Allergy (Verified 06/29/24 09:40) Medication List - Last Reconciled 06/29/24 by Sobeida Gonzalez, OTR TRUCK DRIVER- blood pressure monitor As directed calcium carbonate (Oyster Shell Calcium) 500 mg PO DAILY 90 days cholecalciferol (vitamin D3) 25 mcg PO DAILY levothyroxine 175 mcg PO DAILY lorazepam 0.5 mg PO DAILY PRN paroxetine HCl 10 mg PO DAILY paroxetine HCl 40 mg PO DAILY pravastatin 20 mg PO BEDTIME prazosin 1 mg PO BEDTIME PRN Tobacco use date assessed: 05/23/24 Fall risk assessment: No Falls in past year Last assessed Fall Risk: 06/29/24 Dental Screening Dental Screen Date: 06/29/24 Did you have a dental visit in the last 12 months?: Yes Did you have a dental problem in the last 6 months where you did not have access to dental care?: No Was dental information given to patient?: Patient has dentist HPI HPI Comments History of Present Illness Details 69-year-old female with TONIA with panic a ttacks, Samuel's disease, hyperlipidemia, osteopenia, obesity, impaired fasting glucose, hypertension, former smoker quit in 2021 (20 pack year history), osteoarthritis of multiple joints, vitamin-D deficiency, 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 3 sons (Marty OD 04/2024) Health maintenance Colonoscopy 05/04/2023 severe diverticulosis of the sigmoid colon luminal narrowing, moderate internal hemorrhoids, moderate diverticulosis of descending colon repeat in 5 years if polyps are adematous, repeat in 10 years if benign Mammogram 09/22/23 WNL DEXA 09/22/2023 1. DIAGNOSIS: Normal bone density based on the lowest T-score value of-0.8 in the lumbar spine applying World Health Organization criteria Lung cancer screening January 2023 Pap 2020 AAA screen 11/12/23 Normal Flu today 12/07/2023 [facility] History of Present Illness - The patient is a 69-year-old female pr esenting with persistent anxiety and grief following the loss of her son. Following the incident, she was prescribed prazosin for sleep disturbances and nightmares related to anxiety. Paroxetine was also increased to 50 mg. - Prazosin has been beneficial in improv ing sleep quality and managing night- time intrusive thoughts. The dosage varies between 1 mg and 2 mg daily as needed. There are no reported side effects like headaches or dizziness at this time. - Grief remains a significant issue, tho [facility] the patient has accessed informal support through her cousin who faced a similar situation. Plans to join a formal grief counseling group @ [facility] - The pending autopsy report of her son contributes to prolonged anxiety and difficulty in reaching emotional closure. Despite these challenges, she has resumed some normal activities, such as walking and efforts at weight loss. - The patient uses lorazepam sparingly f or episodic anxiety control. Has HLD on statin needs refills. Physical Exam awake alert oriented RRR LS CTAB Mood and affect appropriate - tearful when talking about son. Discussion Notes During the consultation, we discussed the patient?s current treatment regimen for anxiety and grief, including the effectiveness of prazosin in aiding sleep and reducing nightmares. The patient acknowledged the current dosage guidelines and reported satisfactory response without adverse effects. We deliberated on the increased dosage of paroxetine to assess its full impact, as well as the m inimal side effects experienced. For lorazepam, I emphasized judicious use for acute anxiety episodes. We also explored support systems in place, both informal and potential professional grief counseling, to manage grief more effectively. I encouraged the patient to continue self-care practices and to anticipate the results of the pending autopsy, which may also aid in the grieving process. Ongoing follow-up and potential adjustment of medications were discussed, with the plan to conduct routine labs and a physical examination in the forthcoming months. The patient was advised to monitor symptoms and report any concerns promptly. Assessment and Plan 1. Generalized anxiety disorder The patient is maintained on paroxetine at a dose of 50 mg, which she tolerates well. Prazosin is effective in managing sleep-related anxiety symptoms, with a variable dosing schedule of 1-2 mg as needed. 2. Insomnia The use of prazosin continues to effectively address insomnia related to anxiety, with the current regimen deemed satisfactory. 3. Grief reaction Grief counseling and social support are encouraged. The patient is advised to leverage informal support networks and is planning to engage in professional counseling. Patient Instructions - Continue taking paroxetine (Paxil) 50 mg as prescribed every day. - Take prazosin 1-2 mg as needed for sle ep disturbances. - Use lorazepam sparingly for acute anxi ety episodes. - Engage in supportive counseling as john ilable and feel ready. - Contact my office if there are any fabrice nges in your condition or if you have concerns. - Keep scheduled appointments and follow up with routine labs and physical in July. Consent Patient was informed and verbally consented to the use of an ambient scribe for clinic note documentation during this visit. Total time spent caring for the patient today was 30 minutes. This includes time spent before the visit reviewing the chart, time spent during the visit, and time spent after the visit on documentation, reviewing laboratory results, diagnostic imaging, medications, performing a medically necessary evaluation, counseling on diagnoses, care coordination, ordering appropriate tests, ordering appropriate medications, review of tests performed by other providers, reporting test results with the patient, communication with other healthcare providers. [facility] Medical History (Updated 05/23/24 @ 09:30 by ASHLIE Arvizu-SHAHRZAD) Anxiety Closed fracture of inferior pubic ramus Fracture of superior pubic ramus Samuel's disease Hyperlipidemia Metacarpal bone fracture Osteoarthritis of feet, bilateral Osteoarthritis of left hip Osteopenia Personal history of nicotine dependence Shotty lymph nodes Surgical History (Updated 05/13/24 @ 15:38 by ASHLIE Arvizu-SHAHRZAD) H/O varicose vein stripping (11/16/23) History of colonoscopy (~2023) History of right hip replacement (~2018) History of surgery on arm (~2018) History of total left knee replacement (~2016) History of total right knee replacement (~2017) Family History (Updated 05/23/24 @ 09:23 by ASHLIE Arvizu-SHAHRZAD) Mother Bone cancer Brother Leukemia Afib Sister Aortic aneurysm Father Kidney disease Son No problems noted. Social History (Updated 04/25/24 @ 09:54 by Melonie Castillo) Household Members: Significant Other Housing: House Are you a primary career resource specialist to a significant other at home: No Do you presently have visiting nurse or other home services: No 75 years or older and lives alone: No Alcohol intake: current Alcohol intake frequency: holidays/special occasions only Alcohol type: beer Patient Tobacco Use Status: Former Tobacco user Tobacco use type: Cigarette Cigarettes Per Day: 5 Years Smoked: 25 e-Cigarette/Vaping Use: Never Used Second Hand Smoke Exposure: No service: No Current occupational status: employed (Part-time Job) and retired 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 1. Little interest or pleasure in doing things: not at all 2. Feeling down, depressed, or hopeless: not at all 3. Trouble falling or staying asleep, or sleeping too much: not at all 4. Feeling tired or having little energy: not at all 5. Poor appetite or overeating: not at all 6. Feeling bad about yourself - or that you are a failure or have let yourself or your family down: not at all 7. Trouble concentrating on things, such as reading the newspaper or watching television: not at all 8. Moving or speaking so slowly that other people could have noticed. Or the opposite - being so fidgety or restless that you have been moving around a lot more than usual: not at all 9. Thoughts that you would be better off or of hurting yourself in some way: not at all Total score: 0 Depression Screening Interpretation: Negative Depression Screening Done: Yes 39873 - PHQ-9 Billing: Yes Source: Developed by Drs. Keith Brown, Myate Jin, Bereket Carter and colleagues, with an educational nina from [employer]. Thrive Questionnaire Date Thrive assessed: 06/29/24 I am a: Patient What is your living situation today?: I have a steady place to live Within the past 12 months, did the food you bought not last and you didn't have the money to get more?: Never true Within the past 12 months, did you worry whether your food would run out before you got money to buy more?: Never true Do you have trouble paying for medicines?: No Do you have trouble getting transportation to medical appointments?: No Do you have trouble paying your heating and electricity bill?: No Do you have trouble taking care of your child, family member or friend?: No Do you have trouble with day-to-day activities such as bathing, preparing meals, shopping, managing finances, etc.?: No Are you currently unemployed and looking for a job?: No Are you interested in more education?: No Please select the resources that you would like help with: None Currently or been in a relationship where the following occur: I choose not to answer THRIVE Score: 0 TONIA-7 AMB Questionnaire TONIA-7 Date TONIA - 7 assessed: 06/29/24 Feeling nervous, anxious, or on edge: 0 = Not at all Not being able to stop or control worryin = Not at all Worrying too much about different things: 0 = Not at all Trouble relaxin = Not at all Being so restless that it is hard to sit still: 0 = Not at all Becoming easily annoyed or irritable: 0 = Not at all Feeling afraid as if something awful might happen: 0 = Not at all Total TONIA-7 score (0-4 normal; 5-9 mild; 10-14 moderate; 15-21 severe): 0 Source: Developed by Drs. Keith Brown, Mayte Jin, Bereket Carter and colleagues, with an educational nina from [employer]. TONIA-7 Assessment Billing TONIA-7 Assessment Tool: TONIA-7 Assessment 32488 Physical exam (Primary Care) Vital Signs: Last Vital Signs Temp 97.1 F 06/29/24 09:18 Pulse 77 06/29/24 09:18 Resp 12 06/29/24 09:18 BP 122/70 06/29/24 09:18 Pulse Ox 97 06/29/24 09:18 Oxygen Delivery Method Room Air 06/29/24 09:18 BMI result Body Mass Index 32.3 Tobacco/Smoking Status: Tobacco use Status Tobacco use date assessed 05/23/24 06/29/24 09:19 Patient Tobacco Use Status Former Tobacco user 06/29/24 09:19 Tobacco use type Cigarette 06/29/24 09:19 e-Cigarette/Vaping Use Never Used 06/29/24 09:19 PHQ-9: PHQ-9 Score PHQ-9: Total score 0 06/29/24 09:40 Depression Screening Interpretation: Negative Thrive Assessment: Date of Thrive Assessment Date Thrive assessed 06/29/24 06/29/24 09:19 Currently or been in a relationship where the following occur: I choose not to answer Coding Level of Care Code Est Pt Level 4 (93194) Complex EM visit Add On G2211 Diagnoses Generalized anxiety disorder with panic attacks F41.1; F41.0 Grief at loss of child F43.21; Z63.4 Mixed hyperlipidemia E78.2 Hyperlipidemia type: mixed hyperlipidemia Additional Codes TONIA-7 Assessment Billing - TONIA-7 Assessment Tool: TONIA-7 Assessment 14690 ([id number]) PHQ-9 - 17203 - PHQ-9 Billing: Yes ([id number]) Assessment & Plan Assessment & Plan (1) Generalized anxiety disorder with panic attacks: Code(s): F41.1 - Generalized anxiety disorder; F41.0 - Panic disorder [episodic paroxysmal anxiety] Category: Medical (2) Grief at loss of child: Code(s): F43.21 - Adjustment disorder with depressed mood; Z63.4 - Disappearance and of family member Category: Medical (3) Hyperlipidemia: Code(s): E78.5 - Hyperlipidemia, unspecified Category: Medical Qualifiers: Hyperlipidemia type: mixed hyperlipidemia Qualified Code(s): E78.2 - Mixed hyperlipidemia Plan . Orders: Orders Complete Blood Count no Diff 1 Month M85.852 - Other specified disorders of bone density and structure, left thigh, N18.31 - Chronic kidney disease, stage 3a, R73.01 - Impaired fasting glucose, R79.89 - Other specified abnormal findings of blood chemistry Ferritin 1 Month M85.852 - Other specified disorders of bone density and structure, left thigh, N18.31 - Chronic kidney disease, stage 3a, R73.01 - Impaired fasting glucose, R79.89 - Other specified abnormal findings of blood chemistry Microalbumin, Random (w Creat) 1 Month M85.852 - Other specified disorders of bone density and structure, left thigh, N18.31 - Chronic kidney disease, stage 3a, R73.01 - Impaired fasting glucose, R79.89 - Other specified abnormal findings of blood chemistry Vitamin D 25-OH Total 1 Month M.85 - Other specified disorders of bone density and structure, left thigh, N18.31 - Chronic kidney disease, stage 3a, R73.01 - Impaired fasting glucose, R79.89 - Other specified abnormal findings of blood chemistry Comprehensive Met. Panel 1 Month M.852 - Other specified disorders of bone density and structure, left thigh, N18.31 - Chronic kidney disease, stage 3a, R73.01 - Impaired fasting glucose, R79.89 - Other specified abnormal findings of blood chemistry Hemoglobin A1c 1 Month M.85 - Other specified disorders of bone density and structure, left thigh, N18.31 - Chronic kidney disease, stage 3a, R73.01 - Impaired fasting glucose, R79.89 - Other specified abnormal findings of blood chemistry Lipid Panel 1 Month M.85 - Other specified disorders of bone density and structure, left thigh, N18.31 - Chronic kidney disease, stage 3a, R73.01 - Impaired fasting glucose, R79.89 - Other specified abnormal findings of blood chemistry TSH reflex Free T4 1 Month M.85 - Other specified disorders of bone density and structure, left thigh, N18.31 - Chronic kidney disease, stage 3a, R73.01 - Impaired fasting glucose, R79.89 - Other specified abnormal findings of blood chemistry Medications: Refilled prazosin 1-2 caps at bedtime as needed insomnia/nightmares 1 mg PO BEDTIME PRN 60 caps 12RF insomnia/nightmares pravastatin 20 mg PO BEDTIME 90 tabs 1RF
[2024-06-29 09:18] VITALS: BP 122/70; PULSE 77; RESP 12; TEMP 36.2; O2SAT 97; BMI 32.3
== END 2024-06-29 09:51 | disposition home or self-care (01) ==
LOC: HO.HMCFM 09:11
PROVIDERS: PCP Nurse Practitioner Family; Visit Provider Nurse Practitioner Family
DX: F41.1 Generalized anxiety disorder (principal); F41.0 Panic disorder [episodic paroxysmal anxiety]; F43.21 Adjustment disorder with depressed mood; Z63.4 Disappearance and death of family member; E78.2 Mixed hyperlipidemia

== ENCOUNTER → 2024-06-29 09:10 | Outpatient (BNVA) | payer BC, SELFPAY | PROVIDERS: PCP Nurse Practitioner Family; Visit Provider Nurse Practitioner Family | DX: F41.1 Generalized anxiety disorder (principal); F41.0 Panic disorder [episodic paroxysmal anxiety]; F43.21 Adjustment disorder with depressed mood; E78.2 Mixed hyperlipidemia; Z63.4 Disappearance and death of family member | CPT/HCPCS: 96127 ==

== ENCOUNTER 2024-08-23 07:03 | Outpatient (REF) | payer BC, SELFPAY ==
[2024-08-23 10:11] LABS: Hemoglobin 14.3 g/dl (12.0-16.0); Mean Corpuscular HGB Conc 32.5 g/dl (31.0-35.0); Mean Corpuscular Volume 95.2 fL (80.0-98.0); Platelet Count 279 X10*3/uL (160-400); Red Blood Count 4.62 X10*6/uL (4.20-5.50); Red Cell Distribution Width 12.6 % (11.0-16.0); White Blood Count 5.2 X10*3/uL (4.8-10.8)
[2024-08-23 10:15] LABS: Estimated Average Glucose 103 mg/dL; Hemoglobin A1c % 5.2 % (<6.0)
[2024-08-23 10:30] LABS: Alanine Aminotransferase 13 U/L (0-31); Alkaline Phosphatase 85 U/L (39-117); Anion Gap 13 (12-20); Aspartate Amino Transferase 24 U/L (5-31); Bilirubin Total 0.3 mg/dL (0.0-1.0); Blood Urea Nitrogen 15 mg/dL (9-16); Calcium 9.1 mg/dL (8.4-10.2); Carbon Dioxide 26 mmol/L (22-29); Chloride 109 mmol/L (96-108); Cholesterol 180 mg/dL (<200); Estimated Glomerular Filt Rate > 60; Glucose Random 100 mg/dL (60-115); HDL Cholesterol 44 mg/dL (>40); LDL Cholesterol Calculated 101 mg/dL (<100); Potassium 4.6 mmol/L (3.3-5.1); Sodium 143 mmol/L (135-145); Total Protein 6.7 g/dL (6.5-8.0); Triglycerides 179 mg/dL (<150)
[2024-08-23 10:51] LABS: Ferritin 88 ng/mL (10-250); TSH reflex Free T4 2.46 uIU/mL (0.32-4.0); Vitamin D 25-OH Total 47.5 ng/mL (>30)
[2024-08-23 11:14] LABS: Creatinine Urine 66.92 mg/dL; Microalbumin Urine < 5.0 mg/L
== END 2024-08-23 07:04 | disposition home or self-care (01) ==
LOC: HO.HMGCLDS 07:03
PROVIDERS: PCP Nurse Practitioner Family; Visit Provider Nurse Practitioner Family
DX: N18.31 Chronic kidney disease, stage 3a (principal); R73.01 Impaired fasting glucose; R79.89 Other specified abnormal findings of blood chemistry; M85.852 Other specified disorders of bone density and structure, left thigh; E55.9 Vitamin D deficiency, unspecified
CPT/HCPCS: 36415; 80053; 80061; 82043; 82306; 82570; 82728; 83036; 84443; 85027

== ENCOUNTER 2024-08-25 13:09 | Outpatient (AMB) | payer BC, SELFPAY ==
--- NOTE | 2024-08-25 13:19 | MHC.PC.OV ---
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 Required: No Allergies No Known Allergies Allergy (Verified 08/25/24 14:04) Medication List - Last Reconciled 08/25/24 by Sobeida Gonzalez, [employer] SALESPERSON- blood pressure monitor As directed calcium carbonate (Oyster Shell Calcium) 500 mg PO DAILY 90 days cholecalciferol (vitamin D3) 25 mcg PO DAILY levothyroxine 175 mcg PO DAILY lorazepam 0.5 mg PO DAILY PRN paroxetine HCl 10 mg PO DAILY paroxetine HCl 40 mg PO DAILY pravastatin 20 mg PO BEDTIME Tobacco use date assessed: 08/25/24 Fall risk assessment: No Falls in past year Last assessed Fall Risk: 08/25/24 Dental Screening Dental Screen Date: 08/25/24 Did you have a dental visit in the last 12 months?: Yes Did you have a dental problem in the last 6 months where you did not have access to dental care?: No Was dental information given to patient?: Patient has dentist HPI HPI Comments History of Present Illness Details 69-year-old female with TONIA with panic attacks, Samuel's disease, hyperlipidemia, osteopenia, obesity, impaired fasting glucose, hypertension, former smoker quit in 2021 (20 pack year history), osteoarthritis of multiple joints, vitamin-D deficiency, 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 3 sons (Marty OD 04/2024) Health maintenance Colonoscopy 05/04/2023 severe diverticulosis of the sigmoid colon luminal narrowing, moderate internal hemorrhoids, moderate diverticulosis of descending colon repeat in 5 years if polyps are adematous, repeat in 10 years if benign Mammogram 09/22/23 WNL DEXA 09/22/2023 1. DIAGNOSIS: Normal bone density based on the lowest T-score value of-0.8 in the lumbar spine applying World Health Organization criteria Lung cancer screening Active Pap 2020 AAA screen 11/12/23 Normal VAccines: UTD on all Optho exam 1 year ago, next visit end of 2024 [facility] Here for CPE: - Previously on prazosin 1 mg but stopped due to side effects, feeling goofy. - Currently takes paroxetine, adjusted the dose to 40 mg three weeks ago without issues. - Occasional non-nightmare dreams occur now; no vivid nightmares post-prazosin discontinuation. - Good sleep quality reported currently. - Requests lorazepam refill.. - Recent tonsil stone occurrence with discomfort noted, L side - Lipids near goal on statin - Euthryoid on meds - on Ca+ D . - Cont to grieve son; autopsy showed OD. She is doing ok. Health Maintenance - Total cholesterol and LDL levels improved compared to previous values. - Up-to-date on vaccinations, including tetanus and pneumococcal vaccines. - Bone density and colonoscopy screenings are current and within normal limits. - Thyroid functioning is stable with TSH levels normal. - Vitamin D levels are within normal range. . Review of Systems - General: Reports overall good health. - Psychiatric: Denies current presence of vivid nightmares; experiences occasional non-nightmare dreams. - Sleep: Reports good sleep quality since discontinuing prazosin. - Respiratory, Cardiovascular, Gastrointestinal, Musculoskeletal: Denies symptoms. - EENT: Reports recent occurrence of tonsil stones. - Dermatologic: Denies skin changes or lesions. Physical Exam General: Well developed, well nourished, in no acute distress. Appears stated age. Head: Normocephalic, atraumatic. Eyes: Pupils are equal, round and reactive to light and accommodation. Conjunctivae are clear. Vision grossly normal. Ears: TMs clear AU, EACS WNL Nose: Patent, without discharge. Pharynx: tonsil stone removed L, tolerated well Neck: Supple, no adenopathy or thyromegaly. Breast: Edu on SBE Lungs: Clear to auscultation bilaterally. No rales, rhonchi or wheeze noted. Good air flow in all jimenez. Heart: Regular rate and rhythm. No murmurs, click, rubs or gallops are noted. Abdomen: Bowel sounds present in all quadrants. The abdomen is soft, nontender, with no masses or organomegaly noted. No hernias are noted. : Deferred. Reviewed recommendations for routine COMP[employer] FLAVORINGS Pulses: Peripheral pulses are equal and palpable bilaterally. Extremities: No clubbing, cyanosis nor edema is noted. post surgical changes noted Neurologic: Gait and station normal. Cranial Nerves 2-12 intact. Motor strength grossly symmetrical and intact. No sensory loss. Balance normal. Skin: No rashes, ulcers, or lesions noted. Turgor is good. Skin color is good. Hair and nails are without abnormalities. Psych: Normal eye contact, affect and mood appropriate, and normal interactions. Patient is alert and appropriate to context. Results See below Plan: UTD on HM items Cont all meds as currently prescribed Refills sent RTO 6 mo routine fu labs 1 week before, sooner PRN Patient Instructions - Continue taking paroxetine as currently prescribed. - Use saltwater gargle, especially after meals, to help prevent tonsil stones. - Take prescribed lorazepam as directed, refilled today. - Stay active with outdoor activities for overall wellness. - Follow up in six months or sooner if any concerns or changes. Consent Patient was informed and verbally consented to the use of an ambient scribe for clinic note documentation during this visit. An additional 20 minutes was spent addressing the problem(s) noted at todays visit. This includes time spent before the visit reviewing the chart, time spent during the visit, and time spent after the visit on documentation reviewing laboratory results, diagnostic imaging, medications, performing a medically necessary evaluation, counseling on diagnoses, care coordination, ordering appropriate tests, ordering appropriate medications, review of tests performed by other providers, reporting test results with the patient, communication with other healthcare providers. [facility] Medical History (Updated 08/25/24 @ 14:43 by Sobeida Gonzalez, ASHLIE-SHAHRZAD) Anxiety Closed fracture of inferior pubic ramus Fracture of superior pubic ramus Samuel's disease Hyperlipidemia Metacarpal bone fracture Osteoarthritis of feet, bilateral Osteoarthritis of left hip Osteopenia Personal history of nicotine dependence Shotty lymph nodes Surgical History (Updated 05/13/24 @ 15:38 by ASHLIE Arvizu-SHAHRZAD) H/O varicose vein stripping (11/16/23) History of colonoscopy (~2023) History of right hip replacement (~2018) History of surgery on arm (~2018) History of total left knee replacement (~2017) History of total right knee replacement (~2017) Family History (Updated 05/23/24 @ 09:23 by Sobeida Gonzalez [facility]) Mother Bone cancer Brother Leukemia Afib Sister Aortic aneurysm Father Kidney disease Son No problems noted. Social History (Updated 04/25/24 @ 09:54 by Melonie Castillo) Household Members: Significant Other Housing: House Are you a primary healthcare management consultant to a significant other at home: No Do you presently have visiting nurse or other home services: No 75 years or older and lives alone: No Alcohol intake: current Alcohol intake frequency: holidays/special occasions only Alcohol type: beer Patient Tobacco Use Status: Former Tobacco user Tobacco use type: Cigarette Cigarettes Per Day: 5 Years Smoked: 25 e-Cigarette/Vaping Use: Never Used Second Hand Smoke Exposure: No service: No Current occupational status: employed (Part-time Job) and retired 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 1. Little interest or pleasure in doing things: not at all 2. Feeling down, depressed, or hopeless: not at all 3. Trouble falling or staying asleep, or sleeping too much: not at all 4. Feeling tired or having little energy: not at all 5. Poor appetite or overeating: not at all 6. Feeling bad about yourself - or that you are a failure or have let yourself or your family down: not at all 7. Trouble concentrating on things, such as reading the newspaper or watching television: not at all 8. Moving or speaking so slowly that other people could have noticed. Or the opposite - being so fidgety or restless that you have been moving around a lot more than usual: not at all 9. Thoughts that you would be better off or of hurting yourself in some way: not at all Total score: 0 Depression Screening Interpretation: Negative Depression Screening Done: Yes 54977 - PHQ-9 Billing: Yes Source: Developed by Drs. Keith Brown, Mayte B.W. Bereket Jin and colleagues, with an educational nina from [employer]. Thrive Questionnaire Date Thrive assessed: 08/25/24 I am a: Patient What is your living situation today?: I have a steady place to live Within the past 12 months, did the food you bought not last and you didn't have the money to get more?: Never true Within the past 12 months, did you worry whether your food would run out before you got money to buy more?: Never true Do you have trouble paying for medicines?: No Do you have trouble getting transportation to medical appointments?: No Do you have trouble paying your heating and electricity bill?: No Do you have trouble taking care of your child, family member or friend?: No Do you have trouble with day-to-day activities such as bathing, preparing meals, shopping, managing finances, etc.?: No Are you currently unemployed and looking for a job?: No Are you interested in more education?: No Please select the resources that you would like help with: None Currently or been in a relationship where the following occur: I choose not to answer THRIVE Score: 0 TONIA-7 AMB Questionnaire TONIA-7 Date TONIA - 7 assessed: 08/25/24 Feeling nervous, anxious, or on edge: 0 = Not at all Not being able to stop or control worryin = Not at all Worrying too much about different things: 0 = Not at all Trouble relaxin = Not at all Being so restless that it is hard to sit still: 0 = Not at all Becoming easily annoyed or irritable: 0 = Not at all Feeling afraid as if something awful might happen: 0 = Not at all Total TONIA-7 score (0-4 normal; 5-9 mild; 10-14 moderate; 15-21 severe): 0 Source: Developed by Drs. Keith Brown, Bereket Woodruff and colleagues, with an educational nina from [employer]. TONIA-7 Assessment Billing TONIA-7 Assessment Tool: TONIA-7 Assessment 86019 Physical exam (Primary Care) Vital Signs: Last Vital Signs Temp 97.2 F 08/25/24 13:24 Pulse 62 08/25/24 13:24 Resp 12 08/25/24 13:24 BP 98/68 08/25/24 13:24 Pulse Ox 99 08/25/24 13:24 Oxygen Delivery Method Room Air 08/25/24 13:24 BMI result Body Mass Index 31.9 Tobacco/Smoking Status: Tobacco use Status Tobacco use date assessed 08/25/24 08/25/24 13:23 Patient Tobacco Use Status Former Tobacco user 08/25/24 13:20 Tobacco use type Cigarette 08/25/24 13:20 e-Cigarette/Vaping Use Never Used 08/25/24 13:20 PHQ-9: PHQ-9 Score PHQ-9: Total score 0 08/25/24 14:12 Depression Screening Interpretation: Negative Thrive Assessment: Date of Thrive Assessment Date Thrive assessed 08/25/24 08/25/24 13:20 Currently or been in a relationship where the following occur: I choose not to answer Results Reviewed Results Reviewed: Laboratory Result Units Range Interpretation Provider Comments White Blood Count 5.2 X10*3/uL (4.8-10.8) Red Blood Count 4.62 X10*6/uL (4.20-5.50) Hemoglobin 14.3 g/dl (12.0-16.0) Hematocrit 44.0 % (37.0-47.0) Mean Corpuscular Volume 95.2 fL (80.0-98.0) Mean Corpuscular Hemoglobin 31.0 pg (27.0-33.0) Mean Corpuscular Hemoglobin Concent 32.5 g/dl (31.0-35.0) Red Cell Distribution Width 12.6 % (11.0-16.0) Platelet Count 279 X10*3/uL (160-400) Mean Platelet Volume 9.0 fL (9.4-12.3) Low Nucleated RBC Absolute Count (auto) 0.000 X10*3/uL (0.0-0.012) Nucleated Red Blood Cells % (auto) 0.0 /100WBC (0.0-0.2) Sodium Level 143 mmol/L (135-145) Potassium Level 4.6 mmol/L (3.3-5.1) Chloride Level 109 mmol/L (96-108) High Carbon Dioxide Level 26 mmol/L (22-29) Anion Gap 13 (12-20) Blood Urea Nitrogen 15 mg/dL (9-16) Creatinine 0.74 mg/dL (0.5-1.4) Estimated Creatinine Clearance Calc Not Reportable Estimat Glomerular Filtration Rate > 60 Random Glucose 100 mg/dL (60-115) Estimated Average Glucose 103 mg/dL Hemoglobin A1c Percent 5.2 % (<6.0) Calcium Level 9.1 mg/dL (8.4-10.2) Ferritin 88 ng/mL (10-250) Total Bilirubin 0.3 mg/dL (0.0-1.0) Aspartate Amino Transf (AST/SGOT) 24 U/L (5-31) Alanine Aminotransferase (ALT/SGPT) 13 U/L (0-31) Alkaline Phosphatase 85 U/L (39-117) Total Protein 6.7 g/dL (6.5-8.0) Albumin 4.0 g/dL (3.5-5.0) Triglycerides Level 179 mg/dL (<150) High Cholesterol Level 180 mg/dL (<200) LDL Cholesterol, Calculated 101 mg/dL (<100) High HDL Cholesterol 44 mg/dL (>40) 25-Hydroxy Vitamin D Total 47.5 ng/mL (>30) Thyroid Stimulating Hormone (TSH) 2.46 uIU/mL (0.32-4.0) Urine Creatinine 66.92 mg/dL Urine Microalbumin < 5.0 mg/L Urine Microalbumin/Creatinine Ratio TNP Coding Level of Care Code Est Pt Level 3 (75389) Est Pt Prev Care >65y(55290) Diagnoses Encounter for general adult medical examination with abnormal findings Z00.01 Samuel's disease E06.3 Low vitamin D level R79.89 Elevated fasting glucose R73.01 Stage 3a chronic kidney disease N18.31 Chronic kidney disease stage 3 subtype: stage 3a (GFR 45-59) Generalized anxiety disorder with panic attacks F41.1; F41.0 Mixed hyperlipidemia E78.2 Hyperlipidemia type: mixed hyperlipidemia Osteopenia of neck of left femur M85.852 Osteopenia location: femoral neck Laterality: left Personal history of nicotine dependence Z87.891 Tonsil stone J35.8 Asymptomatic varicose veins of both lower extremities I83.93 Varicose vein complication: asymptomatic Additional Codes TONIA-7 Assessment Billing - TONIA-7 Assessment Tool: TONIA-7 Assessment 77833 ([id number]) PHQ-9 - 78928 - PHQ-9 Billing: Yes ([id number]) Assessment & Plan Assessment & Plan (1) Encounter for general adult medical examination with abnormal findings: Onset Date: ~08/25/24 Code(s): Z00.01 - Encounter for general adult medical examination with abnormal findings Category: Medical (2) Samuel's disease: Comment: Currently on levothyroxine 175 mcg daily. Code(s): E06.3 - Autoimmune thyroiditis Category: Medical (3) Low vitamin D level: Comment: . Currently taking vitamin D3 25 mcg p.o. daily. Code(s): R79.89 - Other specified abnormal findings of blood chemistry Category: Medical (4) Elevated fasting glucose: Code(s): R73.01 - Impaired fasting glucose Category: Medical (5) CKD (chronic kidney disease) stage 3, GFR 30-59 ml/min: Comment: 05/08/2023 labs show a normal electrolytes, BUN 15, creatinine 0.97, EGFR 57,urine creatinine microalbumin within normal limits Code(s): N18.30 - Chronic kidney disease, stage 3 unspecified Category: Medical Qualifiers: Chronic kidney disease stage 3 subtype: stage 3a (GFR 45-59) Qualified Code(s): N18.31 - Chronic kidney disease, stage 3a (6) Generalized anxiety disorder with panic attacks: Code(s): F41.1 - Generalized anxiety disorder; F41.0 - Panic disorder [episodic paroxysmal anxiety] Category: Medical (7) Hyperlipidemia: Code(s): E78.5 - Hyperlipidemia, unspecified Category: Medical Qualifiers: Hyperlipidemia type: mixed hyperlipidemia Qualified Code(s): E78.2 - Mixed hyperlipidemia (8) Osteopenia: Comment: (Bone Dexa Femoral T-score: -1.1 - 09/18/21) DEXA UTD 2023 Code(s): M85.80 - Other specified disorders of bone density and structure, unspecified site Category: Medical Qualifiers: Osteopenia location: femoral neck Laterality: left Qualified Code(s): M85.852 - Other specified disorders of bone density and structure, left thigh (9) Personal history of nicotine dependence: Comment: (former smoker -onset 21, 1/2ppd x 45yrs, 22pyh - quit 2021) Code(s): Z87.891 - Personal history of nicotine dependence Category: Medical (10) Tonsil stone: Code(s): J35.8 - Other chronic diseases of tonsils and adenoids Category: Medical (11) Varicose veins of both lower extremities: Comment: 08/2023 US/ venous insuf bilat IMPRESSION: 1. Right: There is segmental reflux in the right great saphenous vein at the saphenofemoral junction and calf. 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 There is a patent right small saphenous vein without reflux. 2. Left: There is a patent left great saphenous vein without evidence of reflux. 3. There are multiple varicosities in the right lower extremity with reflux as described above. referred to [facility] [place] Vascular Code(s): I83.93 - Asymptomatic varicose veins of bilateral lower extremities Category: Medical Qualifiers: Varicose vein complication: asymptomatic Qualified Code(s): I83.93 - Asymptomatic varicose veins of bilateral lower extremities Plan . Orders: Orders TSH reflex Free T4 6 Months E06.3 - Autoimmune thyroiditis, N18.31 - Chronic kidney disease, stage 3a, R73.01 - Impaired fasting glucose, R79.89 - Other specified abnormal findings of blood chemistry Lipid Panel 6 Months E06.3 - Autoimmune thyroiditis, N18.31 - Chronic kidney disease, stage 3a, R73.01 - Impaired fasting glucose, R79.89 - Other specified abnormal findings of blood chemistry Vitamin D 25-OH Total 6 Months E06.3 - Autoimmune thyroiditis, N18.31 - Chronic kidney disease, stage 3a, R73.01 - Impaired fasting glucose, R79.89 - Other specified abnormal findings of blood chemistry Medications: Refilled levothyroxine 175 mcg PO DAILY 90 caps 1RF E06.3 - Autoimmune thyroiditis lorazepam 0.5 mg PO DAILY PRN 30 tabs 0RF anxiety paroxetine HCl 40 mg PO DAILY 90 tabs 1RF F41.9 - Anxiety disorder, unspecified Discontinued paroxetine HCl Discontinued Reason: Patient no longer taking 10 mg PO DAILY 90 tabs 2RF Patient Instructions: Health screenings for women You should visit your health care provider from time to time, even if you are healthy. The purpose of these visits is to: Screen for medical issues Assess your risk for future medical problems Encourage a healthy lifestyle Update vaccinations and other preventive care services Help you get to know your provider in case of an illness Information Even if you feel fine, you should still see your provider for regular checkups. These visits can help you avoid problems in the future. For example, the only way to find out if you have high blood pressure is to have it checked regularly. High blood sugar and high cholesterol levels also may not have any symptoms in the early stages. A simple blood test can check for these conditions. There are specific times when you should see your provider or receive specific health screenings. The [place] Preventive Services Task Force publishes a list of recommended screenings. Below are screening guidelines for women ages 18 to 39. BLOOD PRESSURE SCREENING Your blood pressure should be checked at least once every 3 to 5 years if: Your blood pressure is in the normal range (top number less than 120 mm Hg and bottom number less than 80 mm Hg) You don't have risk factors for high blood pressure Ask your provider if you need your blood pressure checked more often if: The top number is 120 to 129 mm Hg or the bottom number is 70 to 79 mm Hg You have diabetes, heart disease, kidney problems, are overweight, or have certain other health conditions You have a first-degree relative with high blood pressure You are Black You had high blood pressure during a If the top number is 130 mm Hg or greater or the bottom number is 80 mm Hg or greater, this is considered stage 1 hypertension. Schedule an appointment with your provider to learn how you can reduce your blood pressure. Watch for blood pressure screenings in your area. Ask your provider if you can stop in to have your blood pressure checked. BREAST CANCER SCREENING Experts do not agree about the benefits of breast self-exams in finding breast cancer or saving lives. Talk to your provider about what is best for you. A screening mammogram is not recommended for most women under age 40. Your provider may discuss and recommend mammograms, MRI scans, or ultrasounds if you have an increased risk for breast cancer, such as: A mother or sister who had breast cancer at a young age (most often starting screening earlier than the age the close relative was diagnosed) You carry a high-risk genetic marker CERVICAL CANCER SCREENING Cervical cancer screening should start at age 21 years unless your provider advises otherwise. After the first test: Women ages 21 through 29 should have a Pap test every 3 years. Exoprts do not agree on whether HPV testing is recommended for this age group. Women ages 30 through 65 should be screened with either a Pap test every 3 years or the HPV test every 5 years or both tests every 5 years (called cotesting ). Women who have been treated for precancer (cervical dysplasia) should continue to have Pap tests for 20 years after treatment or until age 65, whichever is longer. If you have had your uterus and cervix removed (total hysterectomy), and you have not been diagnosed with cervical cancer or precancer (high grade cervical neoplasia), you do not need cervical cancer screening. CHOLESTEROL SCREENING Cholesterol screening should begin at: Age 45 for women with no known risk factors for coronary heart disease Age 20 for women with known risk factors for coronary heart disease Repeat cholesterol screening should take place: Every 5 years for women with normal cholesterol levels More often if changes occur in lifestyle (including weight gain and diet) More often if you have diabetes, heart disease, kidney problems, or certain other conditions DIABETES SCREENING You should be screened for diabetes starting at age 35 and then repeated every 3 years if you have no risk factors for diabetes. Screening may need to start earlier and be repeated more often if you have other risk factors for diabetes, such as: You have a first degree relative with diabetes. You are overweight or have obesity. You have high blood pressure, prediabetes, or a history of heart disease. Screening for diabetes should be done if you are planning to become and you are overweight and have other risk factors such as high blood pressure. DENTAL EXAM Go to the dentist once or twice every year for an exam and cleaning. Your dentist will evaluate if you need more frequent visits. EYE EXAM Have an eye exam every 5 to 10 years before age 40. If you have vision problems, have an eye exam every 2 years or more often if recommended by your provider. You should have an eye exam that includes an examination of your retina (back of your eye) at least every year if you have diabetes. IMMUNIZATIONS Commonly needed vaccines include: Flu shot: get one every year. COVID-19 vaccine: ask your provider what is best for you. Tetanus-diphtheria and acellular pertussis (Tdap) vaccine: have one at or after age 19 as one of your tetanus-diphtheria vaccines if you did not receive it as an adolescent. Tetanus-diphtheria: have a booster (or Tdap) every 10 years. Varicella vaccine: receive 2 doses if you never had chickenpox or the varicella vaccine. Hepatitis B vaccine: receive 2, 3, or 4 doses, depending on your exact circumstances. Measles, mumps, and rubella (MMR) vaccine: receive 1 to 2 doses if you are not already immune to MMR. Your provider can tell you if you are immune. Ask your provider about the human papillomavirus (HPV) vaccine if: You have not received the HPV vaccine in the past You have not completed the full vaccine series (you should catch up on this shot) Ask your provider if you should receive other immunizations if you have certain health problems that increase your risk for some diseases such as pneumonia. INFECTIOUS DISEASE SCREENING Women who are sexually active should be screened for chlamydia and gonorrhea up until age 25. Women 25 years and older should be screened for chlamydia and gonorrhea if at high risk. Screening for hepatitis C: All adults ages 18 to 79 should get a one-time test for hepatitis C. people should be screened at every . Screening for human immunodeficiency virus (HIV): All people ages 15 to 65 should get a one-time test for HIV. Depending on your lifestyle and medical history, you may also need to be screened for infections such as syphilis and HIV, as well as other infections. PHYSICAL EXAM All adults should visit their provider from time to time, even if they are healthy. The purpose of these visits is to: Screen for disease Assess your risk of future medical problems Encourage a healthy lifestyle Update your vaccinations and other preventive care services Maintain a relationship with a provider in case of an illness Your height, weight, and BMI should be checked at every exam. During your exam, your provider may ask you about: Depression and anxiety Diet and exercise Alcohol and tobacco use Safety issues, such as using seat belts, smoke detectors, and intimate partner violence Your medicines and risk for interactions SKIN SELF-EXAM Your provider may check your skin for signs of skin cancer, especially if you're at high risk, such as if you: Have had skin cancer before Have close relatives with skin cancer Have a weakened immune system OTHER SCREENING Talk with your provider about colon cancer screening if you have a strong family history of colon cancer or polyps, or if you have had inflammatory bowel disease or polyps yourself. Routine bone density screening of women under 40 is not recommended.
[2024-08-25 13:24] VITALS: BP 98/68; PULSE 62; RESP 12; TEMP 36.2; O2SAT 99; BMI 31.9
== END 2024-08-25 14:31 | disposition home or self-care (01) ==
LOC: HO.HMCFM 13:10
PROVIDERS: PCP Nurse Practitioner Family; Visit Provider Nurse Practitioner Family
DX: Z00.01 Encounter for general adult medical examination with abnormal findings (principal); E06.3 Autoimmune thyroiditis; N18.31 Chronic kidney disease, stage 3a; R79.89 Other specified abnormal findings of blood chemistry; R73.01 Impaired fasting glucose; F41.1 Generalized anxiety disorder; F41.0 Panic disorder [episodic paroxysmal anxiety]; E78.2 Mixed hyperlipidemia; M85.852 Other specified disorders of bone density and structure, left thigh; Z87.891 Personal history of nicotine dependence; J35.8 Other chronic diseases of tonsils and adenoids; I83.93 Asymptomatic varicose veins of bilateral lower extremities

== ENCOUNTER → 2024-08-25 13:09 | Outpatient (BNVA) | payer BC, SELFPAY | PROVIDERS: PCP Nurse Practitioner Family; Visit Provider Nurse Practitioner Family | DX: Z00.01 Encounter for general adult medical examination with abnormal findings (principal); E06.3 Autoimmune thyroiditis; R79.89 Other specified abnormal findings of blood chemistry; R73.01 Impaired fasting glucose; I12.9 Hypertensive chronic kidney disease with stage 1 through stage 4 chronic kidney disease, or unspecified chronic kidney disease; N18.31 Chronic kidney disease, stage 3a; F41.1 Generalized anxiety disorder; F41.0 Panic disorder [episodic paroxysmal anxiety]; E78.2 Mixed hyperlipidemia; M85.852 Other specified disorders of bone density and structure, left thigh; J35.8 Other chronic diseases of tonsils and adenoids; I83.93 Asymptomatic varicose veins of bilateral lower extremities; F41.9 Anxiety disorder, unspecified; Z87.891 Personal history of nicotine dependence | CPT/HCPCS: 96127 ==

== ENCOUNTER 2024-09-23 10:05 | Outpatient (REF) | payer BC, SELFPAY | END 2024-09-23 10:06 | disposition home or self-care (01) | LOC: HO.MAMMO 10:05 | PROVIDERS: PCP Nurse Practitioner Family; Visit Provider Nurse Practitioner Family | DX: Z12.31 Encounter for screening mammogram for malignant neoplasm of breast (principal) | CPT/HCPCS: 77063; 77067 ==

== ENCOUNTER → 2024-09-23 10:15 | Outpatient (BNV) | payer BC, SELFPAY | PROVIDERS: PCP Nurse Practitioner Family; Visit Provider Internal Medicine | DX: Z12.31 Encounter for screening mammogram for malignant neoplasm of breast (principal) | CPT/HCPCS: 77063; 77067 ==

== ENCOUNTER 2025-01-25 07:01 | Outpatient (REF) | payer BC, SELFPAY ==
[2025-01-25 12:36] LABS: Cholesterol 193 mg/dL (<200); HDL Cholesterol 52 mg/dL (>40); Triglycerides 145 mg/dL (<150)
[2025-01-25 13:55] LABS: Free T4 (Free Thyroxine) 0.97 ng/dL (0.71-1.85)
== END 2025-01-25 07:02 | disposition home or self-care (01) ==
LOC: HO.HMGCLDS 07:01
PROVIDERS: PCP Nurse Practitioner Family; Visit Provider Nurse Practitioner Family
DX: N18.31 Chronic kidney disease, stage 3a (principal); E06.3 Autoimmune thyroiditis; R73.01 Impaired fasting glucose; R79.89 Other specified abnormal findings of blood chemistry
CPT/HCPCS: 36415; 80061; 82306; 84439; 84443